=== PATIENT | female | born 1970 | race African-American/Black ===

== ENCOUNTER 2016-12-05 12:06 | Emergency (ER) | payer MEDICARE ==
[2016-10-06 10:52] VITALS: BMI 46.5
[~2016-12-05 12:06] MED LIST: ADIPEX-P37.5 MG PO; ASPIRIN81 MG PO; BUMEX 1 MG TAB1 MG PO; CALCIUM 600+D T1 TA1 PO; CARAFATE1 G PO; CEFAZOLIN2 GM/50 ML IV; CLARITIN 10 MG10 MG PO; COREG25 MG PO; CYCLOBENZAPRINE10 MG PO; DEPO-PROVER150 MG/ML IM; DILAUDID4 MG PO; DITROPAN X10 MG/BOTT PO; DURAGESIC1 PATCH .7 TRANSDERM; DYAZIDE 37.5/251 CAP; DYAZIDE 37.5/251 CAP PO; ELIQUIS2.5 MG PO; FERROUS SULFAT325 MG PO; GABAPENTIN100 MG PO; HYDRALAZINE HCL50 MG PO; HYDROCODON-ACE1 EAC9 PO; IBUPROFEN800 MG PO; IPRAT-ALBUT 0.5-3 ML UPD; K-DUR20 MEQ PO; KEFLEX500 MG PO; KLONOPIN1 MG PO; LASIX40 MG PO; LIDODERM 5 %1 PATCH TRANSDERM; LIORESAL 10 MG10 MG PO; LIPITOR10 MG PO; MULTIPLE VITAMI1 TA1 PO; NAPROSYN500 MG PO; OXYBUTYNIN CHLOR5 MG PO; OXYCONTIN10 MG PO; PEPCID20 MG PO; PERCOCET 10/3251 TA1 PO; PHENERGAN25 M1 PO; PREDNISONE20 MG PO; PRILOSEC20 MG PO; ROCEPHIN 2 GM/D52 G1 IV; SKELAXIN800 MG PO; SOMA350 MG PO; VISTARIL50 MG PO; VITAMIN B-1000 MCG/M SQ; VOLTAREN100 GM TOPICAL; ZOCOR20 MG PO; ZOFRAN4 MG PO; ZOLOFT50 MG PO
== END 2016-12-05 17:00 | disposition home or self-care (01) ==
LOC: D.ER 12:06
DX: M50.321 Other cervical disc degeneration at C4-C5 level (principal); M50.322 Other cervical disc degeneration at C5-C6 level; M54.12 Radiculopathy, cervical region; K21.9 Gastro-esophageal reflux disease without esophagitis; I10 Essential (primary) hypertension

== ENCOUNTER → 2017-01-05 12:26 | Outpatient (CLI) | payer MEDICARE ==
[2016-10-06 10:52] VITALS: BMI 46.5
== END | disposition home or self-care (01) ==
LOC: D.MRI 12:26
DX: M54.12 Radiculopathy, cervical region (principal)

== ENCOUNTER 2017-02-13 17:13 | Emergency (ER) | payer MEDICARE ==
[2016-10-06 10:52] VITALS: BMI 46.5
== END 2017-02-13 19:10 | disposition home or self-care (01) ==
LOC: D.ER 17:13
DX: M25.552 Pain in left hip (principal); M54.12 Radiculopathy, cervical region; M50.30 Other cervical disc degeneration, unspecified cervical region; K21.9 Gastro-esophageal reflux disease without esophagitis; I10 Essential (primary) hypertension; F17.200 Nicotine dependence, unspecified, uncomplicated

== ENCOUNTER 2017-02-27 22:17 | Emergency (ER) | payer MEDICARE ==
[2016-10-06 10:52] VITALS: BMI 46.5
== END 2017-02-28 01:01 | disposition home or self-care (01) ==
LOC: D.ER 22:17
DX: L03.116 Cellulitis of left lower limb (principal); S71.002A Unspecified open wound, left hip, initial encounter; X58.XXXA Exposure to other specified factors, initial encounter; Y93.89 Activity, other specified; Y92.89 Other specified places as the place of occurrence of the external cause; M54.12 Radiculopathy, cervical region; M50.321 Other cervical disc degeneration at C4-C5 level; M50.322 Other cervical disc degeneration at C5-C6 level; K21.9 Gastro-esophageal reflux disease without esophagitis; I10 Essential (primary) hypertension; F17.200 Nicotine dependence, unspecified, uncomplicated

== ENCOUNTER 2017-03-01 11:54 | Inpatient (IN) | payer MEDICARE ==
[~2017-03-01] VITALS: Ht 175.3 cm; Wt 130.6 kg
[2017-03-01 13:20] LABS: BASOPHILS 0.1 % (0-2); EOSINOPHILS 0.5 % (0-7); HEMATOCRIT 35.9 % (36.0-48.0); HEMOGLOBIN 11.6 g/dL (12-16); IMMATURE GRANULOCYTES 0.3 % (0-5); LYMPHOCYTES 18.8 % (15-50); MCH 30.9 pg (26.0-34.0); MCHC 32.3 g/dL (31.0-37.0); MCV 95.5 fL (80.0-100.0); MEAN PLATELET VOLUME 10.8 fL (7.4-10.4); NEUTROPHILS 77.3 % (40-80); PLATELET COUNT 275 10x3/uL (130-400); RBC 3.76 10x6/uL (4.00-5.40); RDW 13.9 % (11.5-14.5); WBC 10.2 10x3/uL (4.8-10.8)
[2017-03-01 13:30] LABS: ANION GAP 10.3 mmol/L (8-16); C-REACTIVE PROTEIN 3.3 mg/dL (0.0-0.9); CALCIUM 8.5 mg/dL (8.5-10.1); CARBON DIOXIDE 27.4 mmol/L (21.0-32.0); POTASSIUM - SERUM 3.7 mmol/L (3.5-5.1)
[2017-03-01 14:23] VITALS: BP 157/93; BMI 42.6
[2017-03-01 14:26] LABS: ERYTHROCYTE SEDIMENTATION RATE 45 mm/hr (0-20)
--- NOTE | 2017-03-01 15:47 | NUR ---
PT WAS ADMITTED TO THIS UNIT AROUND 2PM. SHE ARRIVED ON THE FLOOR IN A WHEELCHAIR. SHE CAN AMBULATE AD [facility] BUT HER LEFT HIP HURTS. PT. IS BEING ADMITTED UNDER DR. KRAUSE. SHE IS NPO. IV HAS BEEN PLACED IN HER RIGHT WRIST AREA AND REMAINS PATENT WITH ANTIBIOTIC THERAPY INFUSING AT THIS TIME. PT. IS ALERT AND ORIENTED X 3. VITALS UPON ADMISSION WERE; TEMP. 97.9, PULSE 71, RESP. 17, B/P 157/93, 02SAT. 99%. DILAUDID PHYSICAL THERAPIST CLINIC DIRECTOR WORKING AND PT. IS DELIVERING HER OWN MEDICATION SCHEDULED. DRESSING TO LEFT HIP AREA WAS CHANGED OUT DUE TO CLEAR TO PINK COLORED DRAINAGE NOTED ON THE ABDOMINAL PAD. WILL BE MONITORING PT AND ASSISTING PRN WITH ADL'S.
[2017-03-01 20:00] VITALS: BP 144/81
--- NOTE | 2017-03-01 20:00 | NUR ---
PT RECEIVED RESTING IN BED WITH EYES CLOSED. PT DENIES NEEDS AT THIS TIME. CALL LIGHT AND H2O IN PT REACH. BED IN LOW POSITION. SIDE RAILS UP X2.
[2017-03-02] VITALS: BP 134/75
--- NOTE | 2017-03-02 01:15 | NUR ---
RN NOTE: PT RESTING QUIETLY IN SEMI HOLLINGSWORTH'S POSITION. STATES IV IN RIGHT FA HURTING. NO REDNESS OR SWELLING NOTED. OFFERED TO RE-SITE IV AND PT DECLINED. WILL MONITOR CLOSELY. CALL LIGHT WITHIN REACH.
[2017-03-02 04:00] VITALS: BP 129/79
--- NOTE | 2017-03-02 04:55 | NUR ---
PT STATES SHE HAS BEEN AWARE OF ORERS FOR URINE LABS. DISCUSSED OBTAINING URINE SAMPLE VIA IN & OUT CATHETER D/T PT BEING INCONTINENT THROUGH OUT THE NIGHT. PT REFUSES IN & OUT CATHETER. STATES, "I CAN USE THE BATHROOM. I'D RATHER DO IT THAT WAY." PT STATES SHE WILL NOTIFY NURSE NEXT TIME PT NEEDS TO USE THE BATHROOM.
[2017-03-02 05:52] LABS: BASOPHILS 0.1 % (0-2); EOSINOPHILS 0.9 % (0-7); HEMATOCRIT 34.5 % (36.0-48.0); IMMATURE GRANULOCYTES 0.2 % (0-5); LYMPHOCYTES 19.9 % (15-50); MCH 30.4 pg (26.0-34.0); MCHC 31.9 g/dL (31.0-37.0); MCV 95.3 fL (80.0-100.0); MEAN PLATELET VOLUME 10.4 fL (7.4-10.4); MONOCYTES 4.8 % (2-11); NEUTROPHILS 74.1 % (40-80); PLATELET COUNT 266 10x3/uL (130-400); RBC 3.62 10x6/uL (4.00-5.40); RDW 13.7 % (11.5-14.5); WBC 9.5 10x3/uL (4.8-10.8)
[2017-03-02 06:37] LABS: CALCIUM 7.7 mg/dL (8.5-10.1); CARBON DIOXIDE 28.4 mmol/L (21.0-32.0); POTASSIUM - SERUM 3.4 mmol/L (3.5-5.1)
--- NOTE | 2017-03-02 08:45 | NUR ---
Verbalized name and , incontinent of urine. Dressing left hip intact, noted moderate amount of serosanguious drainage, dressing changed, covered with abd pad and secured with tape. States pain is cotrolled with SWATCH CHECKER.
[2017-03-02 10:09] VITALS: BP 142/85
[2017-03-02 11:47] VITALS: BP 140/90
[2017-03-02 13:39] VITALS: Ht 175.3 cm; Wt 130.6 kg
--- NOTE | 2017-03-02 14:08 | NUR ---
IV SITED TO LEFT FOREARM AFTER ONE ATTEMPT WITH 22G. WARM MOIST HEAT APPLIED TO PREVIOUS IV SITE.
[2017-03-02 16:38] VITALS: BP 155/106
[2017-03-02 19:00] VITALS: BP 132/85
--- NOTE | 2017-03-02 19:30 | NUR ---
PT RECEIVED SITTING UP IN BED WATCHING TELEVISION. ASSESSMENT COMPLETED PER FLOWSHEET. PT DENIES NEEDS AT THIS TIME. CALL LIGHT AND H2O IN PT REACH. BED IN LOW POSITION. SIDE RAILS UP X2.
--- NOTE | 2017-03-02 22:58 | NUR ---
16FR QUINONES CATHETER INSERTED USING STERILE TECHNIQUE PER PHYSICIAN ORDERS. CLEAR STRAW COLORED RETURN NOTED. PT TOLERATED WELL. STAT LOCK PLACED ON RIGHT LEG, CATHETER SECURED ON STAT LOCK. URINE SPECIMEN FOR LABS ORDERED COLLECTED AT THIS TIME AND SENT TO LAB.
[2017-03-03] VITALS: BP 129/83
--- NOTE | 2017-03-03 01:54 | NUR ---
PT'S OPTICAL EFFECTS LAYOUT PERSON PUMP NOTED TO BE EMPTY. OPTICAL EFFECTS LAYOUT PERSON PUMP SYRINGE REPLACED PER ORDERS, EMPTY SYRINGE WASTED IN SHARPS.
[2017-03-03 02:59] LABS: APPEARANCE CLOUDY (CLEAR); BILIRUBIN NEGATIVE (NEGATIVE); COLOR YELLOW (YELLOW); GLUCOSE NEGATIVE (NEGATIVE); KETONE NEGATIVE (NEGATIVE); LEUKOCYTE ESTERASE NEGATIVE (NEGATIVE); NITRITE NEGATIVE (NEGATIVE); PROTEIN NEGATIVE (NEGATIVE); SPECIFIC GRAVITY 1.015 (1.005-1.020); UROBILINOGEN NORMAL (NORMAL)
--- NOTE | 2017-03-03 03:46 | NUR ---
LYING IN BED WITH EYES CLOSED. RESP EVEN AND UNLABORED. LORI LIGHT IN REACH.
[2017-03-03 04:00] VITALS: BP 146/85
[2017-03-03 06:57] LABS: BASOPHILS 0.1 % (0-2); HEMOGLOBIN 10.8 g/dL (12-16); IMMATURE GRANULOCYTES 0.1 % (0-5); LYMPHOCYTES 22.9 % (15-50); MCH 30.3 pg (26.0-34.0); MCHC 31.8 g/dL (31.0-37.0); MCV 95.2 fL (80.0-100.0); MEAN PLATELET VOLUME 10.8 fL (7.4-10.4); MONOCYTES 4.4 % (2-11); NEUTROPHILS 71.5 % (40-80); PLATELET COUNT 265 10x3/uL (130-400); RBC 3.57 10x6/uL (4.00-5.40); RDW 14.1 % (11.5-14.5)
[2017-03-03 07:12] LABS: ANION GAP 7.9 mmol/L (8-16); CALCIUM 7.7 mg/dL (8.5-10.1); CARBON DIOXIDE 28.7 mmol/L (21.0-32.0); POTASSIUM - SERUM 3.6 mmol/L (3.5-5.1)
--- NOTE | 2017-03-03 07:35 | NUR ---
RESTING WATCHING TV, DENIES NEEDS, NO DISTRESS NOTED, ASSESSMENT COMPLETE, DRESSING CHANGED, CALL LIGHT IN REACH, WILL CONTINUE TO MONITOR
[2017-03-03 09:00] VITALS: BP 136/80
--- NOTE | 2017-03-03 16:00 | NUR ---
LYING IN BED,WITHOUT DISTRESS.CALL LIGHT IN REACH
[2017-03-03 16:17] VITALS: BP 144/76
--- NOTE | 2017-03-03 17:59 | NUR ---
LYING IN BED RESTING, WANTS "BEDTIME" MEDS
[2017-03-03 20:00] VITALS: BP 152/91
--- NOTE | 2017-03-03 22:25 | NUR ---
Patient resting in bed, alert and oriented, bed in lowest position and locked, call light and water in reach, dressing changed scant amount of drainage noted to dressing, CPOC.
[2017-03-04] VITALS: BP 145/89
[2017-03-04 04:00] VITALS: BP 147/92
[2017-03-04 06:20] LABS: BASOPHILS 0.2 % (0-2); EOSINOPHILS 0.7 % (0-7); IMMATURE GRANULOCYTES 0.1 % (0-5); MCH 30.1 pg (26.0-34.0); MCHC 31.4 g/dL (31.0-37.0); MCV 95.9 fL (80.0-100.0); MONOCYTES 5.2 % (2-11); NEUTROPHILS 72.8 % (40-80); PLATELET COUNT 250 10x3/uL (130-400); RBC 3.65 10x6/uL (4.00-5.40)
[2017-03-04 06:47] LABS: CALCIUM 8.3 mg/dL (8.5-10.1); CARBON DIOXIDE 25.7 mmol/L (21.0-32.0); POTASSIUM - SERUM 3.7 mmol/L (3.5-5.1)
--- NOTE | 2017-03-04 08:35 | NUR ---
SCHEDULED MEDICATIONS ADMINISTERED AT THIS TIME. ASSESSMENT PERFORMED PER FLOWSHEET. QUINONES PATENT AND DRAINING TO GRAVITY. DRESSING TO LEFT HIP REMAINS C/D/I. ADMIN PROG COORD IN USE FOR PAIN. LEFT FOREARM IV PATENT WITH NO S/S OF INFILATRATION. CALL LIGHT IN REACH, WILL CONTINUE WITH PLAN OF CARE.
[2017-03-04 09:17] VITALS: BP 167/83
--- NOTE | 2017-03-04 11:28 | NUR ---
SCHEDULED CARAFATE ADMINISTERED AT THIS TIME. PT DENIES NEEDS. CALL LIGHT IN REACH, WILL CONTINUE WITH PLAN OF CARE.
[2017-03-04 11:53] VITALS: BP 146/80
--- NOTE | 2017-03-04 15:25 | NUR ---
SCHEDULED MEDICATIONS ADMINISTERED AT THIS TIME. IV TO LEFT FORARM RE-DRESSED PER PT'S REQUEST. SITE SIGNED AND DATED. DENIES FURTHER NEEDS, CALL LIGHT IN REACH, WILL CONTINUE WITH PLAN OF CARE.
[2017-03-04 15:33] VITALS: BP 138/74
--- NOTE | 2017-03-04 16:50 | NUR ---
SCHEDULED MEDICATIONS ADMINISTERED AT THIS TIME. DENIES NEEDS, CALL LIGHT IN REACH. WILL CONTINUE WITH PLAN OF CARE.
[2017-03-04 20:00] VITALS: BP 107/84
--- NOTE | 2017-03-04 20:00 | NUR ---
ASSESSMENT PER JAN. DRESSING TO LEFT HIP C/D/I. IV PATENT LEFT FOREARM OF 1/2NS AT 75CC'S/HR SITE CLEAR. INTERNATIONAL RELATIONS PROFESSOR OF DILAUDID IN USE WITH SETTINGS AT 0.2MG Q10MIN W/4MG Q4H L/O. QUINONES TO BS DRAINAGE WITH PALE YELLOW URINE. SR UP X2 CALL LIGHT WITHIN REACH.
--- NOTE | 2017-03-04 22:00 | NUR ---
MEDS GIVEN PER JAN. RESTING QUIETLY DENIES NEEDS. WANTS SOMETHING TO EAT SANDWICH TRAY AND SODA GIVEN PO FOR SNACK.
[2017-03-05] VITALS: BP 121/81
--- NOTE | 2017-03-05 | NUR ---
NPO FOR SURGERY IN AM.
--- NOTE | 2017-03-05 02:24 | NUR ---
RESTING QUIETLY WATCHING TV.
[2017-03-05 04:00] VITALS: BP 158/81
[2017-03-05 05:41] LABS: BASOPHILS 0.1 % (0-2); HEMATOCRIT 36.6 % (36.0-48.0); HEMOGLOBIN 11.5 g/dL (12-16); IMMATURE GRANULOCYTES 0.4 % (0-5); LYMPHOCYTES 21.3 % (15-50); MCH 30.5 pg (26.0-34.0); MCHC 31.4 g/dL (31.0-37.0); MCV 97.1 fL (80.0-100.0); MEAN PLATELET VOLUME 10.7 fL (7.4-10.4); MONOCYTES 5.5 % (2-11); NEUTROPHILS 71.7 % (40-80); PLATELET COUNT 243 10x3/uL (130-400); RBC 3.77 10x6/uL (4.00-5.40); WBC 8.2 10x3/uL (4.8-10.8)
[2017-03-05 06:06] LABS: ANION GAP 9.8 mmol/L (8-16); CALCIUM 8.2 mg/dL (8.5-10.1); CARBON DIOXIDE 29.3 mmol/L (21.0-32.0); POTASSIUM - SERUM 4.1 mmol/L (3.5-5.1)
[2017-03-05 06:09] LABS: CREATININE - SERUM 1.3 mg/dL (0.6-1.3)
--- NOTE | 2017-03-05 07:32 | NUR ---
PT AOX4 RESP EVEN AND NONLABORED IV TO LEFT FOREARM PATENT AND INTACT SRX2 BED AT LOWEST SETTING CALL LIGHT WITHIN REACH WILL CONTINUE TO MONITOR PT DENIES NEEDS AT THIS TIME
[2017-03-05 08:22] VITALS: BP 158/86
[2017-03-05 11:50] VITALS: BP 127/84
--- NOTE | 2017-03-05 15:20 | NUR ---
PATIENT TRANSFERRED TO FLOOR ON [facility]IM[facility]ER 10L. ANESTHESIA NOTIFIED.
[2017-03-05 15:37] VITALS: BP 129/71
--- NOTE | 2017-03-05 16:02 | NUR ---
Patient Name: JACQUELINE BRUNNER Admission Status: Elective Accout number: [id number] Admission Date: 03-01-2017 : 1970 Admission Diagnosis:INFECTION FOLLOWING A PROCEDURE, INITIAL ENCOUNTER Attending: CECILIA Current LOS: 4 Anticipated DC Date: 03-09-2017 Planned Disposition: Home with Home Health Primary Insurance: [facility] Discharge Planning Comments: CM MET WITH PATIENT REGARDING D/C NEEDS AND PLANS. PATIENT STATED SHE LIVES WITH HER FIANCE AND THEY HAVE 1 STEP W/O RAIL TO ENTER HOME AND NO STAIRS INSIDE. PATIENT IS PARTIAL DEPENDENT WITH HER CARE AND HAS A WHEELCHAIR, WALKER, SHOWER CHAIR, AND NEBULIZER AT HOME. PATIENTS PCP IS DR. ESPITIA AND USES [facility]. PATIENT IS CURRENT WITH [facility]. CM WILL CONTINUE TO FOLLOW PATIENT WITH D/C NEEDS AND PLANS. PCP DR. ESPITIA [facility]- [phone] MARCK MYESHA ([facility]) [phone] Machine Ii Cutter: Shira Ny Is the patient Alert and Oriented? Yes 0 * How many steps to enter\exit or inside your home? 1 0 * PCP DR. ESPITIA 0 * Pharmacy [place] 0 * Preadmission Environment Home with Family 0 * ADLs Independent 0 * Equipment Nebulizer Shower Chair Walker Wheelchair 0 * List name and contact numbers for known caregivers / representatives who currently or will assist patient after discharge: MARCK BRUNNER ([facility]) [phone] * Community resources currently utilized Home Health 0 * Please name any agencies selected above. [facility] 0 * Additional services required to return to the preadmission environment? Yes 0 * Can the patient safely return to the preadmission environment? Yes 0 * Has this patient been hospitalized within the prior 30 days at any hospital? No 0 Grand Total: 0
--- NOTE | 2017-03-05 20:31 | NUR ---
PATIENT RESTING IN BED. ALERT AND ORIENTED. NO SIGNS OF DISTRESS NOTED. VSS. SCHEDULED MEDS GIVEN. SHIFT ASSESSMENT COMPLETED. DENIES ANY NEEDS AT THIS TIME. BED LOW. CALL LIGHT IN REACH
--- NOTE | 2017-03-06 01:52 | NUR ---
PATIENT RESTING IN SEMI-FOWLERS POSITION WITH EYES CLOSED. NO VISIBLE SIGNS OF DISTRESS. BED IN LOWEST POSITION AND CALL LIGHT WITHIN REACH.
[2017-03-06 04:00] VITALS: BP 97/45
[2017-03-06 06:21] LABS: BASOPHILS 0.1 % (0-2); HEMOGLOBIN 11.2 g/dL (12-16); IMMATURE GRANULOCYTES 0.4 % (0-5); LYMPHOCYTES 15.2 % (15-50); MCH 30.4 pg (26.0-34.0); MCHC 30.3 g/dL (31.0-37.0); MONOCYTES 5.5 % (2-11); NEUTROPHILS 77.8 % (40-80); PLATELET COUNT 291 10x3/uL (130-400); RBC 3.68 10x6/uL (4.00-5.40); RDW 14.4 % (11.5-14.5)
[2017-03-06 06:25] LABS: MCV 100.5 fL (80.0-100.0); WBC 11.4 10x3/uL (4.8-10.8)
[2017-03-06 06:38] LABS: ANION GAP 10.2 mmol/L (8-16); CARBON DIOXIDE 29.1 mmol/L (21.0-32.0); CREATININE - SERUM 1.3 mg/dL (0.6-1.3); POTASSIUM - SERUM 4.3 mmol/L (3.5-5.1)
--- NOTE | 2017-03-06 07:43 | NUR ---
PT AOX4 RESP EVEN AND NONLABORED PT DENIES NEEDS AT THIS TIME SRX2 CALL LIGHT WITHIN REACH WILL CONTINUE TO MONITOR BED AT LOWEST SETTING IV TO LEFT FOREARM PATENT AND INTACT. WOUND VAC TO LEFT HIP DRESSING INTACT
[2017-03-06 08:17] VITALS: BP 123/68
[2017-03-06 12:08] VITALS: BP 106/53
[2017-03-06 16:28] VITALS: BP 122/55; BP 122/57
[2017-03-06 19:00] VITALS: BP 128/56
--- NOTE | 2017-03-07 01:48 | NUR ---
194) REC'D.WALKING ROUNDS IN BED SEDATED TALKING AT RANDOM EYES CLOSED RESP. DEEP AND EVEN.LONG LEG ACEWRAP DRSG. WITH KNEE IMMOB. INTACT.DRAIN INTACT WILL CONTINUE TO MONITOR FOR ANY CHGES. AND FOLLOW CURRENT PLAN OF CARE
[2017-03-07 04:00] VITALS: BP 128/73
[2017-03-07 08:25] VITALS: BP 128/79
--- NOTE | 2017-03-07 08:30 | NUR ---
Verbalized name and , dressing clean dry and intact to left hip, with Provena wound vac dressing secured and suctioning as ordered, serosanguious drainage noted in tubing. States pain is managed. Osborn catheter patent. No distress assessed. Call light within reach, box alarm attached to patient.
[2017-03-07 10:59] VITALS: BP 122/74
[2017-03-07 16:01] VITALS: BP 118/68
--- NOTE | 2017-03-07 19:00 | NUR ---
BEDSIDE REPORT RECEIVED AND CARE OF PT ASSUMED. PT LYING IN SEMI HOLLINGSWORTH'S POSITION WITH EYES CLOSED. IV IN RIGHT AND PATENT WHTI 1/2 NS INFUSING AT 30 ML / HR. SUPERVISOR BEEHIVE KILN / DILAUDID IN USE FOR PAIN CONTROL. WOUND VAC IN PLACE ON LEFT HIP WELL COMPRESSED WITH NO LEAKAGE ALARMS. QUINONES CATHETER DRAINING TO GRAVITY WITY YELLOW URINE IN COLLECTION BAG. WILL MONITOR CLOSLEY FOR NEEDS.
[2017-03-07 20:49] VITALS: BP 118/72
--- NOTE | 2017-03-07 21:00 | NUR ---
C/O IV IN RIGHT HAND HURTING. NO SWELLING OR REDNESS. REMOVED WITH CATHETER TIP INTACT. RE-SITED TO RIGHT AC USING 20 GUAGE CATHETER IN 2 STICKS. RE-STARTED IV FLUIDS.
--- NOTE | 2017-03-07 21:05 | NUR ---
HS MEDICATIONS GIVEN. WILL CONTINUE TO MONITOR FOR NEEDS.
--- NOTE | 2017-03-07 23:23 | NUR ---
PT RESTING QUIELTY IN SEMI HOLLINGSWORTH'S POSITION. IV PATENT. WOUND VAC WITHOUT LEAKAGE ALARMS. CALL LIGHT WITHIN REACH.
[2017-03-08 00:43] VITALS: BP 107/57
[2017-03-08 04:00] VITALS: BP 139/70
[2017-03-08 05:29] LABS: BASOPHILS 0.3 % (0-2); EOSINOPHILS 0.9 % (0-7); HEMATOCRIT 32.7 % (36.0-48.0); HEMOGLOBIN 10.5 g/dL (12-16); IMMATURE GRANULOCYTES 0.1 % (0-5); LYMPHOCYTES 21.9 % (15-50); MCH 31.2 pg (26.0-34.0); MCHC 32.1 g/dL (31.0-37.0); MEAN PLATELET VOLUME 11.3 fL (7.4-10.4); MONOCYTES 6.1 % (2-11); NEUTROPHILS 70.7 % (40-80); PLATELET COUNT 220 10x3/uL (130-400); RBC 3.37 10x6/uL (4.00-5.40); WBC 7.9 10x3/uL (4.8-10.8)
[2017-03-08 05:51] LABS: ANION GAP 7.4 mmol/L (8-16); CALCIUM 8.5 mg/dL (8.5-10.1); CARBON DIOXIDE 30.5 mmol/L (21.0-32.0); CREATININE - SERUM 1.2 mg/dL (0.6-1.3); POTASSIUM - SERUM 3.9 mmol/L (3.5-5.1)
--- NOTE | 2017-03-08 07:30 | NUR ---
PT ASSESSMENT COMPLETE AWAKE AND ALERT ORINETED X 3 LUNGS CLAER BIALTERALLY HAS WOUND VAC NOTED TO LEFT HIP NO DRAINAGE NOTED AT THIS TIME PAIN IS CONTROLLED WITH RETAIL SELLING FLOOR LEADER DILAUDID. CALL LIGHT IN REACH SIDE RAILS UP X 2
[2017-03-08 08:12] VITALS: BP 138/84
[2017-03-08 11:17] VITALS: BP 140/80
--- NOTE | 2017-03-08 13:33 | NUR ---
CM REASSESSMENT NOTE: PATIENT HAD TOLD DR. BRITO THAT SHE WOULD GO TO A SNF. CM WENT TO PATIENTS ROOM FOR HER TO DECIDE WHICH FACILITY AND SHE STATED I AM GOING HOME-NOT A FACILITY. SHE STATED DR. BRITO DOESN'T KNOW ME THAT WELL YET I WAS JUST TALKING. PATIENT SIGNED THE [facility] FORM WITH [facility]. REFERRAL BEING SENT. WOUND VAC INFO SENT TO [facility].
--- NOTE | 2017-03-08 14:12 | NUR ---
Nutrition Follow Up: Pt reported that her meals have been fine. She agreed to drink Sae BID and requested to mix it with 8oz of grape juice. Pt is eating 53% meal avg on a regular diet. I>O. No BM since admit. Noted wound vac to hip. Labs reviewed. Meds noted including Lasix, 1/2 NS @ 30 ml/hr. Rec continue current diet. Will send Sae BID to promote wound healing. RD will continue to monitor pt progress.
--- NOTE | 2017-03-08 14:38 | OP ---
PATIENT NAME: JACQUELINE SMITH MEDICAL RECORD: [id number] :70 LOCATION:D.MS [id number] ADMISSION DATE:03/01/17 SURGEON: ELSY KRAUSE MD DATE OF OPERATION: 03/05/2017 PREOPERATIVE DIAGNOSIS: Recurring hip wound to the left hip. POSTOPERATIVE DIAGNOSIS: Recurring hip wound to the left hip plus retained foreign body in the wound. PROCEDURE: 1. Excisional debridement of the wound to include skin, subcutaneous tissue, portions of fat, fascia, muscle, greater than 20 cm. 2. Removal of foreign body -- prior placed wound VAC sponge. SURGEON: lEsy Krause MD ANESTHESIA: General. INTRAOPERATIVE COMPLICATIONS: None. SUMMARY OF PATHOLOGIC FINDINGS: She had a very small punctate hole; however, as this was healed that would became obvious that she had a residual portion of the black sponge of a wound VAC. This was taken out and the entire cavity was scraped back to bleeding elements and a second wound VAC was placed. OPERATIVE SUMMARY IN DETAIL: After obtaining the appropriate preoperative orthopedic surgery consent, as well as anesthetic consultation, evaluation and clearance, the patient was brought to the operating room and placed on the operating table in supine position. After general laryngeal mask was administered, the patient was placed in a right lateral decubitus position. All pressure points were well padded to include down leg peroneal pad as well as axillary roll. She was held firmly to the operating table using the vacuum pack suction system. The left hip was prepped and draped in a routine sterile manner. Cultures were taken immediately and the small punctiform incision was elongated to immediately observed the black sponge of a wound VAC sponge. This was removed in its entirety and curettage and excisional debridement were carried out both with scalpel, as well as rongeur until the entire base was bleeding. At one point, it did appear to go deep, but it did not appear to involve the bone at this point, copious bulb syringe was followed by replacement with silver wound VAC, again, 2 layers deep, wound VAC was set at 125 medium intensity, continuous suction. The patient was then awakened, taken to recovery in stable condition. All final needle and sponge counts were correct. TRANSINT:[id number] Voice Confirmation ID: [id number] DOCUMENT ID: [id number] ELSY KRAUSE MD at 1438 CC: [id number] DICTATION DATE: 03/05/17 1442 MOTEL FRONT DESK CLERK: 03/06/17 0110 ADM IN [facility] [address] [place] [id number]
[2017-03-08 15:25] VITALS: BP 114/72
--- NOTE | 2017-03-08 18:50 | NUR ---
NO ACUTE DISTRESS NOTED VOICES ALL NEEDS CALL LIGHT INREACH SIDE RAILS UP X 2
--- NOTE | 2017-03-08 19:30 | NUR ---
PATIENT RESTING IN BED WITH IV BEEPING. SL PATIENT'S IV UNTIL ANTIBIOTICS ARE DUE. PATIENT DENIES OTHER NEEDS AT THIS TIME. BED IN LOWEST POSITION, CALL LIGHT WITHIN REACH, AND BED ALARM ON. ENCOURAGED THE PATIENT TO CALL IF SHE HAS FURTHER NEEDS.
[2017-03-08 20:00] VITALS: BP 133/65
[2017-03-09] VITALS: BP 147/90
[2017-03-09 04:00] VITALS: BP 156/87
--- NOTE | 2017-03-09 10:13 | NUR ---
WOUND CARE/WOUND VAC DRESSING CHANGE PT HAD SURGICAL DEBRIDEMENT ON 03/05/17 TO NONHEALING WOUND ON LEFT HIP. TODAY I REMOVED 2 PIECES OF SILVER SPONGE FROM THE WOUND AND NOTED NO ODOR. THE WOUND BED AND RED/BEEFY AND BLEEDS EASILY. PLACED 2 PIECES OF SILVER SPONGE IN WOUND AND COVERED WITH DRAPE. CUT AN OPENING AND PLACED ANOTHER PIECE OF SILVER FOAM ON THE OUTSIDE OF WOUND FOR PROTECTION FROM TRAC PAD. TOTAL: 2 SILVER IN WOUND 1SILVER ON OUTSIDE OF WOUND. -125MMHG WAS ACHIEVED WITH A MODERATE CONTINUOUS SUCTION. MEASUREMENTS: 6CM X 2CM X 5CM WOUND CARE WILL CONTINUE TO MONITOR.
--- NOTE | 2017-03-09 10:50 | NUR ---
pt seen for rigging slinger note. states pain med given eariler and is slowly helping. wound vac noted to left hip with drainage in canister. area around wound vac clean dry and intact. call light in reach
[2017-03-09 11:35] VITALS: BP 122/74
[2017-03-09] MEDS ORDERED: KEFLEX500 MG PO (13:28)
--- NOTE | 2017-03-09 15:30 | NUR ---
PT DISCHARGED AT THIS TIME TO HOME EXPRESED UNDERSTANDING OF DISCHARGE INSTRUCTIONS AND APPOINTMENTS. PIV DISCONTINUED. QUINONES REMOVED TRANSFERED TO PRIVATE CAR VIA WHEELCHAIR.
--- NOTE | 2017-03-09 15:30 | NUR ---
WOUND VAC PORTABLE APPLIED AND SENT WITH PT.
--- NOTE | 2017-03-09 16:54 | NUR ---
CM REASSESSMENT NOTE: PATIENT DISCHARGED TODAY WITH A WOUND VAC (CHANGED TODAY) AND [facility] WAS NOTIFIED. FAMILY DROVE PATIENT HOME. PATIENT HAD NO OTHER NEEDS.
== END 2017-03-09 17:05 | disposition home health service (06) | DRG 857 ==
LOC: D.MS 11:54
PROVIDERS: Student in an Organized Health Care Education/Training Program; ADMIT Orthopaedic Surgery
PROC: 0KCP0ZZ Extirpation of Matter from Left Hip Muscle, Open Approach (ICD-10-PCS; 2017-03-05)
PROC: 0KBP0ZZ Excision of Left Hip Muscle, Open Approach (ICD-10-PCS; principal; 2017-03-05 12:30)
DX: T81.4XXA Infection following a procedure, initial encounter (principal); L02.416 Cutaneous abscess of left lower limb; B19.10 Unspecified viral hepatitis B without hepatic coma; Z68.41 Body mass index [BMI] 40.0-44.9, adult; Z96.642 Presence of left artificial hip joint; K21.9 Gastro-esophageal reflux disease without esophagitis; E66.01 Morbid (severe) obesity due to excess calories; F17.200 Nicotine dependence, unspecified, uncomplicated; Z91.19 Patient's noncompliance with other medical treatment and regimen; E11.40 Type 2 diabetes mellitus with diabetic neuropathy, unspecified; D50.9 Iron deficiency anemia, unspecified; I25.10 Atherosclerotic heart disease of native coronary artery without angina pectoris

== ENCOUNTER 2017-05-07 09:53 | Emergency (ER) | payer MEDICARE ==
[2017-03-02 13:39] VITALS: BMI 42.5
== END 2017-05-07 12:35 | disposition home or self-care (01) ==
LOC: D.ER
DX: S39.012A Strain of muscle, fascia and tendon of lower back, initial encounter (principal); W19.XXXA Unspecified fall, initial encounter; Y93.89 Activity, other specified; Y92.89 Other specified places as the place of occurrence of the external cause; F17.200 Nicotine dependence, unspecified, uncomplicated

== ENCOUNTER → 2017-06-25 16:26 | Outpatient (CLI) | payer MEDICARE ==
[2017-03-02 13:39] VITALS: BMI 42.5
== END | disposition home or self-care (01) ==
LOC: D.MAMMO 09:30
DX: N63 Unspecified lump in breast (principal)

== ENCOUNTER 2017-07-16 09:15 | Outpatient (CLI) | payer MEDICARE ==
[2017-07-12 14:57] LABS: BASOPHILS 0.1 % (0-2); EOSINOPHILS 0.8 % (0-7); HEMATOCRIT 34.9 % (36.0-48.0); HEMOGLOBIN 11.3 g/dL (12-16); IMMATURE GRANULOCYTES 0.1 % (0-5); LYMPHOCYTES 19.7 % (15-50); MCH 31.1 pg (26.0-34.0); MCHC 32.4 g/dL (31.0-37.0); MCV 96.1 fL (80.0-100.0); MEAN PLATELET VOLUME 12.2 fL (7.4-10.4); MONOCYTES 5.2 % (2-11); NEUTROPHILS 74.1 % (40-80); PLATELET COUNT 184 10x3/uL (130-400); RBC 3.63 10x6/uL (4.00-5.40); RDW 14.2 % (11.5-14.5); WBC 8.5 10x3/uL (4.8-10.8)
[2017-07-12 15:08] LABS: APTT 29.7 SECONDS (22.8-39.4); INR 1.12 (0.85-1.17); PROTIME 14.3 SECONDS (11.6-15.0)
[2017-07-12 15:09] LABS: ANION GAP 14.4 mmol/L (8-16); CALCIUM 7.6 mg/dL (8.5-10.1); CARBON DIOXIDE 25.3 mmol/L (21.0-32.0); CREATININE - SERUM 0.9 mg/dL (0.6-1.3); POTASSIUM - SERUM 3.7 mmol/L (3.5-5.1)
[2017-07-12 16:55] LABS: ERYTHROCYTE SEDIMENTATION RATE 28 mm/hr (0-20)
[~2017-07-16] VITALS: Ht 175.3 cm; Wt 131.5 kg
[~2017-07-16 09:15] MED LIST changes: +NEURONTIN600 MG PO
[2017-07-16 11:48] VITALS: BP 152/89; BMI 42.9
--- NOTE | 2017-07-16 17:04 | NUR ---
PT'S SURGERY CANCELLED FOR TODAY. OFFICE TO RESCHEDULE. PT AWARE TO CALL IF DOES NOT HEAR FROM OFFICE BY TOMORROW FOR NEW SURGERY DATE. DISCHARGED VIA WHEELCHAIR WITH BROTHER, BEBETO.
[2017-07-20 14:44] VITALS: Ht 175.3 cm; Wt 131.5 kg
== END 2017-07-16 17:05 | disposition home or self-care (01) ==
LOC: D.SDCHOLD 09:15 → D.OPS 09:15 → D.SDCHOLD 10:30 → EDSTATUS 14:15 → D.SDCHOLD 14:15 → D.OPS 17:05 → D.SDCHOLD 17:05
PROVIDERS: Orthopaedic Surgery
DX: T84.52XA Infection and inflammatory reaction due to internal left hip prosthesis, initial encounter (principal); Z68.41 Body mass index [BMI] 40.0-44.9, adult; B19.10 Unspecified viral hepatitis B without hepatic coma; E66.01 Morbid (severe) obesity due to excess calories; E11.9 Type 2 diabetes mellitus without complications; I10 Essential (primary) hypertension; Z96.89 Presence of other specified functional implants; Z01.810 Encounter for preprocedural cardiovascular examination; Z01.811 Encounter for preprocedural respiratory examination; Z01.812 Encounter for preprocedural laboratory examination; Z53.9 Procedure and treatment not carried out, unspecified reason

== ENCOUNTER 2017-07-19 14:00 | Inpatient (IN) | payer MEDICARE ==
[~2017-07-19] VITALS: Ht 175.3 cm; Wt 129.3 kg
[2017-07-20 07:37] LABS: HCG URINE NEGATIVE (NEGATIVE)
[2017-07-20 07:46] VITALS: BP 147/90; BMI 42.2
--- NOTE | 2017-07-20 10:14 | NUR ---
PILLOW BETWEEN ARMS
--- NOTE | 2017-07-20 10:31 | NUR ---
LEFT HIP AND LEG WASHED WITH HIBICLENS AND ALCOHOL PRIOR TO PREP
[2017-07-20 14:29] VITALS: BP 134/69
[2017-07-20 14:44] VITALS: BP 134/69; BMI 42.2
--- NOTE | 2017-07-20 14:55 | OP ---
PATIENT NAME: JACQUELINE ALMODOVAR MEDICAL RECORD: [id number] :70 LOCATION:D.MS [id number] ADMISSION DATE:07/20/17 SURGEON: ELSY KRAUSE MD DATE OF OPERATION: 07/20/2017 PREOPERATIVE DIAGNOSES: 1. Infected right total hip arthroplasty. 2. Morbid obesity. 3. Patient noncompliance. 4. Substantially altered surgical anatomy. POSTOPERATIVE DIAGNOSES: 1. Infected right total hip arthroplasty. 2. Morbid obesity. 3. Patient noncompliance. 4. Substantially altered surgical anatomy. PROCEDURES: 1. Removal of right total hip arthroplasty with excisional debridement. 2. Replacement of antibiotic cement spacer. ANESTHESIA: General. INTRAOPERATIVE COMPLICATIONS: Essentially none. SUMMARY OF PATHOLOGIC FINDINGS: Besides having purulence hidden around the prosthesis itself, the patient had a large area of abscess in the anterolateral distal part of the thigh. Cultures were sent separately, one labeled superficial and one labeled deep. The patient's stem required an extended femoral osteotomy for removal. The patient's acetabular cup was well fixed; however, minimal amount of bone was lost. It is of note that the entire posterior wall was gone as it was augmented at the last procedure. OPERATIVE SUMMARY IN DETAIL: After obtaining the appropriate preoperative orthopedic surgery consent as well as anesthetic consultation, evaluation and clearance, the patient was brought to the operating room and placed on the operating table in supine position. After general laryngeal mask was administered, the patient was placed in the left lateral decubitus position. All pressure points were well padded to include down leg peroneal pad as well as axillary roll. The patient was held firmly to the operating table using the vacuum pack suction system. The entire right lower extremity and hip were then prepped and draped in a routine sterile fashion. Previous utilized incision was taken down through scar tissue to the level of the tensor fascia madelaine. At this point, the anterior abscess was encountered. Cultures were taken at this point. Dissection was further carried down through substantial amounts of scar tissue with substantial amount of altered surgical anatomy. Essentially, the patient had scar tissue all the way down to the greater trochanter. Dissection was then carried across the greater trochanter down to the femoral neck of the prosthesis where a second large purulence was encountered. This was cultured and labeled deep cultures. After substantial amount of scar tissue removal, the hip was reduced. The femoral head did not come off the Beltrán taper, therefore, the entire proximal body of the taoism modular system was taken off and then multiple attempts were made at removal of the distal stem, this was unsuccessful. Broad osteotome was then utilized to perform a proximal femoral corticotomy. This resulted in extraction of the femoral stem. At this point, OPERATIVE REPORT [id number] ALMODOVARJACQUELINE cables were placed to maintain integrity of the femur. Wound was copiously irrigated at this point. Next, attention was turned to the acetabulum. Polyethylene was removed. All screws were removed and the augment was removed after the cement was removed, augment was removed and then, the cup was removed. Serial and sequential curved osteotomes were used circumferentially about the hip until finally the well-fixed acetabular cup broke free resulting in a minimal amount of bone loss. Serial and sequential pulsatile lavage was then followed by placement of antibiotic cement spacer. This was relocated into the acetabulum. A large flat Dann-Jimenes drain was put into place and then closure from deep to superficial was done with #5 Ethibond followed by #1 Vicryl, 2-0 Vicryl and skin lauren. The ENRIKE drain was sewn in with a 2-0 nylon. Sterile dressings were applied. The suction was hooked up to the Dann-Jimenes drain without leak. The patient was then put into an abduction pillow and lastly, a Osborn catheter was placed. She was then awakened, extubated, and taken to recovery room in stable condition. ESTIMATED BLOOD LOSS: 800 cc. One unit given intraoperatively with a second to follow in recovery. TRANSINT:[id number] Voice Confirmation ID: [id number] DOCUMENT ID: [id number] JIMI EL, ELSY WELLS at 1455 CC: [id number] DICTATION DATE: 07/20/17 1241 AUTOMATIC LINE SET UP MECHANIC: 07/20/17 1452 ADM IN [facility] [address] [place] [address]
[2017-07-20 20:00] VITALS: BP 145/77
[2017-07-21] VITALS: BP 121/69
--- NOTE | 2017-07-21 01:35 | NUR ---
PATIENT COMPLAINS ABOUT BURNING SENSATION TO LEFT HIP REVISION. BANDAGE WAS REDONE AT THE BEGINING OF SHIFT WITH 4x4 AND 4 ABD PADS. UNDER MAT WAS CHANGED DUE TO SATURATION OF BLOOD. WHEN FIRST BANDAGE WAS TAKEN OFF BLOOD OOZED OUT OF AQUASEAL DRESSING, WHICH WAS LEFT IN PLACE. ENRIKE DRAIN TO THE DISTAL PORTION OF THE DRESSING WAS THAT WAS MODERATELY FULL OF BLOODY DRAINAGE. WORKING ON GETTING PAINMEDICATION GIVEN 2 HOURS APART. WORKING ON TIRTATING O2 DOWN.
--- NOTE | 2017-07-21 02:14 | NUR ---
RN NOTE: PATIENT LAYING IN BED TALKING ON THE PHONE. 1/2NS INFUSING @100mL/hr TO THE LEFT WRIST. ICE PACK APPLIED TO LEFT HIP. ENRIKE DRAIN NOTED WITH BLOODY DRAINAGE. 2LPM ON VIA NASAL CANULA. PATIENT STATED THAT HER PAIN WAS HURTING BUT WAS TALKING CALMLY ON THE PHONE.
[2017-07-21 04:00] VITALS: BP 115/54
[2017-07-21 05:25] LABS: HEMATOCRIT 26.2 % (36.0-48.0); HEMOGLOBIN 8.7 g/dL (12-16); MCH 30.2 pg (26.0-34.0); MCHC 33.2 g/dL (31.0-37.0); MEAN PLATELET VOLUME 11.5 fL (7.4-10.4); RBC 2.88 10x6/uL (4.00-5.40); RDW 16.3 % (11.5-14.5)
--- NOTE | 2017-07-21 07:30 | NUR ---
PT COMPLAINS OF PAIN 10 OUT OF 10, REQUEST EDUCATIONAL AID, EDUCATIONAL AID SET UP, DENIES OTHER NEED, CALL LIGHT IN REACH, BED LOWEST POSITION, WILL CONTINUE TO MONITOR
[2017-07-21 09:45] VITALS: BP 137/91
--- NOTE | 2017-07-21 12:00 | NUR ---
RN NOTE; PT LYING IN BED NO SIGNS OF ACUTE DISTRESS. L WRIST IV INFUSING FLUIDS ORDERED. O2 VIA NASAL CANNULA. BED IN LOWEST POSITION, SIDE RAILS UP X 2, CALL LIGHT WITHIN REACH.
[2017-07-21 13:04] VITALS: BP 151/80
--- NOTE | 2017-07-21 14:00 | NUR ---
BANDAGE TO LEFT HIP REINFORCED
[2017-07-21 16:32] VITALS: BP 153/87
[2017-07-21 20:00] VITALS: BP 115/67
[2017-07-22] VITALS: BP 101/59
[2017-07-22 04:00] VITALS: BP 125/75
[2017-07-22 05:22] LABS: HEMATOCRIT 24.8 % (36.0-48.0); HEMOGLOBIN 8.2 g/dL (12-16); MCH 29.9 pg (26.0-34.0); MCHC 33.1 g/dL (31.0-37.0); MCV 90.5 fL (80.0-100.0); MEAN PLATELET VOLUME 11.3 fL (7.4-10.4); RBC 2.74 10x6/uL (4.00-5.40); WBC 10.9 10x3/uL (4.8-10.8)
[2017-07-22 05:42] LABS: ANION GAP 12.8 mmol/L (8-16); CARBON DIOXIDE 24.2 mmol/L (21.0-32.0); CREATININE - SERUM 0.9 mg/dL (0.6-1.3)
[2017-07-22 05:44] LABS: CALCIUM 6.8 mg/dL (8.5-10.1)
--- NOTE | 2017-07-22 07:30 | NUR ---
RECIEVED PT DURING WALKING ROUNDS. PT RESTING IN BED WITH COMPLAINTS OF PAIN OF A 8 ON A SCALE OF 1-10. CASH TELLER IN USE. ASSESSMENT DONE PER FLOWSHEET. BED IN LOW POSITION AND CALL LIGHT WITHIN REACH. WILL CONTINUE TO MONITOR.
[2017-07-22 09:42] VITALS: BP 124/77
[2017-07-22 11:55] VITALS: BP 90/50
[2017-07-22 15:53] VITALS: BP 110/59
[2017-07-22 20:00] VITALS: BP 100/57
[2017-07-23] VITALS: BP 103/49
[2017-07-23 04:00] VITALS: BP 106/63
--- NOTE | 2017-07-23 07:35 | NUR ---
ASSESSMENT COMPLETE. IV TO L FA PATENT. / NS INFUSING AT 100 CC/HR. AUTOMOTIVE UPHOLSTERER DILAUDID 0.2-10-4 IN USE FOR PAIN CONTROL. DRESSING INTACT TO L HIP. ENRIKE X 1 TO L HIP. ABDUCTION PILLOW IN USE. SCD'S IN USE TO BILAT LEGS. QUINONES PATENT DRAININIG YELLOW URINE. SL TO R FA.
[2017-07-23 07:54] LABS: HEMATOCRIT 22.1 % (36.0-48.0)
[2017-07-23 08:06] LABS: ANION GAP 11.7 mmol/L (8-16); CARBON DIOXIDE 26.7 mmol/L (21.0-32.0); POTASSIUM - SERUM 3.4 mmol/L (3.5-5.1)
[2017-07-23 08:08] LABS: CALCIUM 6.7 mg/dL (8.5-10.1)
[2017-07-23 08:09] LABS: HEMOGLOBIN 7.4 g/dL (12-16)
[2017-07-23 09:40] VITALS: BP 116/59
--- NOTE | 2017-07-23 10:10 | NUR ---
SL TO R WRIST WITH TENDERNESS AND SWELLING WHEN FLUSHED. SL REMOVED. CATHETER TIP INTACT.
--- NOTE | 2017-07-23 10:15 | NUR ---
SL SITED TO [facility] WITH 22 GUAGE X 1 ATTEMPT BY LINETTE ALCANTAR RN.
--- NOTE | 2017-07-23 10:40 | NUR ---
1ST UNIT PRBC INFUSION STARTED.
[2017-07-23 10:42] VITALS: BP 88/39
--- NOTE | 2017-07-24 | NUR ---
EYES CLOSED RESPIRATIONS WITH EASE AND UNLABORED.
[2017-07-24 04:00] VITALS: BP 126/77
--- NOTE | 2017-07-24 07:30 | NUR ---
ASSESSMENT COMPLETE. IV TO L FA PATENT. ASSOCIATE TRAINER DILAUDID 0.2-10-4 IN USE FOR PAIN CONTROL. ENRIKE X 1 TO L HIP. DRESSING TO L HIP INTACT. SCD'S IN USE TO BILAT LEGS. QUINONES PATENT DRAINING YELLOW URINE. DENIES ANY NEEDS AT THIS TIME.
[2017-07-24 08:50] VITALS: BP 125/78
[2017-07-24 08:51] LABS: MCHC 33.7 g/dL (31.0-37.0); MCV 88.9 fL (80.0-100.0); MEAN PLATELET VOLUME 11.2 fL (7.4-10.4); RBC 3.07 10x6/uL (4.00-5.40); RDW 15.4 % (11.5-14.5); WBC 10.9 10x3/uL (4.8-10.8)
[2017-07-24 08:53] LABS: HEMATOCRIT 27.3 % (36.0-48.0); HEMOGLOBIN 9.2 g/dL (12-16)
--- NOTE | 2017-07-24 11:04 | NUR ---
COMPLAINING OF L HIP PAIN. PERCOCET GIVEN.
[2017-07-24 11:13] VITALS: Ht 175.3 cm; Wt 129.3 kg
[2017-07-24 12:03] VITALS: BP 104/53
--- NOTE | 2017-07-24 14:26 | NUR ---
COMPLAINING OF TENDERNESS TO L LOWER LEG WHEN TOUCHED. SCD REMOVED FROM L LEG. DRY, DARK SCALY SKIN NOTED TO LLE.
--- NOTE | 2017-07-24 16:15 | NUR ---
DRESSING TO L HIP CHANGED. STEFANY INTACT TO INCISION. INCISION CLEANED WITH WOUND CLEANSER AND COVERED WITH AQUACEL AG. ABDUCTION PILLOW IN USE. REFUSING TO TURN ON SIDE AT THIS TIME.
[2017-07-24 16:21] VITALS: BP 107/64
--- NOTE | 2017-07-24 17:41 | NUR ---
CONTINUING TO COMPLAIN OF PAIN. 0.4 MG BOLUS GIVEN.
--- NOTE | 2017-07-24 18:15 | NUR ---
REPOSITIONED TO RIGHT SIDE.
[2017-07-24 19:00] VITALS: BP 92/58
--- NOTE | 2017-07-24 19:41 | NUR ---
AWAKE AND ALERT. ORIENTED X3. NO NEW C/O AT THIS TIME. LUNGS ARE CLEAR BILATERALLY,NO COUGH NOTED. SKIN IS INTACT WITHOUT REDNESS EXCEPT INCISION TO LEFT HIP WHICH HAS A DRY INTACT DRESSING IN PLACE. ENRIKE PATENT WITH SEROUS SANGUINESS DRAINAGE NOTED. IV TO LEFT FA PATENT WITHOUT REDNESS AT INSERTION SITE. SL TO RIGHT FOREARM IS PATENT WITHOUT REDNESS AT INSERTION SITE. QUINONES PATENT WITH CLEAR YELLOW URINE. DENIES NEEDS.
[2017-07-25] VITALS: BP 96/61
--- NOTE | 2017-07-25 00:52 | NUR ---
PT RESTING IN BED WITH QUINONES PATENT TO CLEAR YELLOW URINE PER GRAVITY FLOW CALL LIGHT IN REACH SIDE RAILS UP X [address] PER ORDER[address] ENRIKE DRAIN NOTED TO LEFT HIP
--- NOTE | 2017-07-25 02:55 | NUR ---
PT C/O PAIN REQUESTED AND RECIEVED PERCOCET PER ORDER
[2017-07-25 04:00] VITALS: BP 148/52
--- NOTE | 2017-07-25 05:18 | NUR ---
SCHEDULED MEDICATIONS ADMINISTERED WELL BOLUS OF DILAUDID PER ORDER.
[2017-07-25 06:26] LABS: BASOPHILS 0.1 % (0-2); EOSINOPHILS 0.9 % (0-7); HEMATOCRIT 27.7 % (36.0-48.0); HEMOGLOBIN 9.3 g/dL (12-16); IMMATURE GRANULOCYTES 0.3 % (0-5); LYMPHOCYTES 13.4 % (15-50); MCH 30.3 pg (26.0-34.0); MCHC 33.6 g/dL (31.0-37.0); MCV 90.2 fL (80.0-100.0); MEAN PLATELET VOLUME 10.9 fL (7.4-10.4); NEUTROPHILS 76.3 % (40-80); RBC 3.07 10x6/uL (4.00-5.40); RDW 15.5 % (11.5-14.5); WBC 10.3 10x3/uL (4.8-10.8)
[2017-07-25 06:36] LABS: PLATELET COUNT 241 10x3/uL (130-400)
[2017-07-25 06:46] LABS: C-REACTIVE PROTEIN 12.5 mg/dL (0.0-0.9); CARBON DIOXIDE 29.4 mmol/L (21.0-32.0); CREATININE - SERUM 0.9 mg/dL (0.6-1.3); POTASSIUM - SERUM 3.4 mmol/L (3.5-5.1)
--- NOTE | 2017-07-25 06:47 | NUR ---
PRN PERCOCET ADMINISTERED FOR PAIN 7/10 AT THIS TIME.
--- NOTE | 2017-07-25 07:30 | NUR ---
RECIEVED PT DURING WALKING ROUNDS, PT RESTING IN BED WITH COMPLAINTS OF PAIN OF AN 8 ON A SCALE OF 1-10, AWNING ASSEMBLER IN USE. ENRIKE DRAIN EMPTIED AND DRESSING CHANGED TO LEFT HIP AT THIS TIME. BED LINEN CHANGED. ASSESSMENT DONE PER FLOWSHEET. BED IN LOW POSITION AND CALL LIGHT WITHIN REACH. WILL CONTINUE TO MONITOR.
[2017-07-25 07:45] LABS: ERYTHROCYTE SEDIMENTATION RATE 66 mm/hr (0-20)
[2017-07-25 08:19] VITALS: BP 121/73
--- NOTE | 2017-07-25 11:25 | NUR ---
LIFE ENRICHMENT SPECIALIST BOLUS DOSE GIVEN AT THIS TIME FOR PAIN OF A 10 ON A SCALE OF 1-10. BED IN LOW POSITION AND CALL LIGHT WITHIN REACH. WILL CONTINUE TO MONITOR.
[2017-07-25 12:26] VITALS: BP 125/83
--- NOTE | 2017-07-25 13:13 | NUR ---
Patient Name: JACQUELINE ALMODOVAR Admission Status: Elective Accout number: [id number] Admission Date: 07-20-2017 : 1970 Admission Diagnosis:INFECT/INFLM REACTION DUE TO INTERNAL LEFT HIP PROSTH, Attending: ELSY KRAUSE Current LOS: 5 Anticipated DC Date: Planned Disposition: [facility] Facility Primary Insurance: [facility] Discharge Planning Comments: CM met with patient to assess discharge planning needs. Patient stated that she is a partially dependent on her . She stated that they help each other. Patient discharge plan is to go to [facility] at discharge. Referral sent to [facility]. Patient stated that she has a bedside commode, cane. walker at home. She is not currently using any HH services. There are 7 steps in her home. CM will continue to follow and assist with discharge planning/needs. PCP: [facility] Alfonso [facility]rbano () [phone] Home Care Nurse: Tiffany Siddiqi * Is the patient Alert and Oriented? Yes 0 * How many steps to enter\exit or inside your home? 7 0 * PCP [facility] 0 * Pharmacy [facility] 0 * Preadmission Environment Home with Family 0 * ADLs Partial Dependent 0 * Partial ADLs (Assistance needed) Ambulation Bathing Toileting 0 * Equipment Bedside Commode Cane Rolling Walker 0 * List name and contact numbers for known caregivers / representatives who currently or will assist patient after discharge: ALFONSO URBANO [phone] 0 * Additional services required to return to the preadmission environment? Yes 0 * Can the patient safely return to the preadmission environment? No 0 * Has this patient been hospitalized within the prior 30 days at any hospital? No 0 Grand Total: 0
--- NOTE | 2017-07-25 13:15 | NUR ---
Patient is current with [facility]
[2017-07-25 19:00] VITALS: BP 91/55
[2017-07-26 04:00] VITALS: BP 112/69
--- NOTE | 2017-07-26 07:30 | NUR ---
RECIEVED PT DURING WALKING ROUNDS. PT RESTING IN BED WITH COMPLAINTS OF PAIN OF AN 8 ON A SCALE OF 1=10. FLAT SORTER PROCESSOR IN USE. ASSESSMENT DONE PER FLOWSHEET. BED IN LOW POSITION AND CALL LIGHT WITHIN REACH. WILL CONTINUE TO MONITOR.
--- NOTE | 2017-07-26 09:35 | NUR ---
SUPERVISOR METAL CANS BOLUS GIVEN AT THIS TIME PER ORDER FOR PAIN OF A 10 ON A SCALE OF 1-10. BED IN LOW POSITION AND CALL LIGHT WITHIN REACH. WILL CONTINUE TO MONITOR.
[2017-07-26 09:46] VITALS: BP 110/69
[2017-07-26 12:33] VITALS: BP 93/51
--- NOTE | 2017-07-26 13:51 | NUR ---
BOLUS DOSE ADMINISTERED AT THIS TIME PER ORDER.
--- NOTE | 2017-07-26 14:54 | NUR ---
NUTRITION F/U PT TOLERATING ADA DIET WITH 100% INTAKE. WILL CONTINUE TO PROVIDE DIET, MONITOR PO INTAKE. RD FOLLOWING
--- NOTE | 2017-07-26 15:02 | NUR ---
[facility]
[2017-07-26 16:13] VITALS: BP 92/52
[2017-07-26 17:59] VITALS: BP 91/58
[2017-07-27 00:40] VITALS: BP 100/43
[2017-07-27 04:56] VITALS: BP 104/52
--- NOTE | 2017-07-27 08:34 | NUR ---
AWAKE AND ALERT. ORIENTED X3. NO C/O AT THIS TIME. REPORTS SOME RELIEF WITH BOLUS DOSE. LUNGS ARE CLEAR BILATERALLY, NO COUGH NOTED. SKIN IS INTACT WITHOUT REDNESS EXCEPT INCISION TO LEFT HIP WHICH HAS A DRY INTACT DRESSING IN PLACE. SL TO RIGHT FOREARM AND IV TO LEFT FOREARM ARE PATENT WITHOUT REDNESS AT INSERTION SITE. QUINONES PATENT WITH CLEAR YELLOW URINE. DENIES NEEDS. NPO AT THIS TIEM.
--- NOTE | 2017-07-27 08:42 | NUR ---
ENRIKE TO LEFT HIP PATENT WITH SEROUS SANGUINESS DRAINAGE NOTED. QUINONES PATENT WITH CLEAR YELLOW URINE.
[2017-07-27 09:39] VITALS: BP 112/73
--- NOTE | 2017-07-27 10:00 | NUR ---
RESTING QUIETLY IN BED. DENIES NEEDS.
--- NOTE | 2017-07-27 12:30 | NUR ---
SURGERY CANCELLED AT THIS TIME. LUNCH SERVED IN ROOM. FEEDS SELF.
[2017-07-27 13:06] VITALS: BP 93/53
--- NOTE | 2017-07-27 16:00 | NUR ---
RESTING QUIETLY IN BED. DENIES NEEDS.
[2017-07-27 16:59] VITALS: BP 97/47
[2017-07-27 20:00] VITALS: BP 95/53
--- NOTE | 2017-07-27 21:16 | NUR ---
PATIENT REQUESTED A RECORD LABEL INTERN BOLUS FOR 10/10 PAIN.
[2017-07-28] VITALS (12 sets, daily range): BP systolic 87–151; BP diastolic 49–85
--- NOTE | 2017-07-28 02:32 | NUR ---
RN NOTE: PT RESTING QUIETLY IN SUPINE POSITION WITH EYES CLOSED AND UNLABORED BREATHING. IV PATENT WITH NS INFUSING AT 30 ML / HR. JEWELRY MOLD MAKER / DILAUDID IN USE FOR PAIN CONTROL. QUINONES CATHETER DRAINING TO GRAVITY WITH YELLOW URINE IN COLLECTION BAG. WILL CONTINUE TO MONITOR FOR NEEDS. CALL LIGHT WITHIN REACH.
[2017-07-28 05:28] LABS: HEMOGLOBIN 8.8 g/dL (12-16); MCH 29.6 pg (26.0-34.0); MCHC 32.6 g/dL (31.0-37.0); MCV 90.9 fL (80.0-100.0); MEAN PLATELET VOLUME 10.9 fL (7.4-10.4); RBC 2.97 10x6/uL (4.00-5.40); RDW 15.5 % (11.5-14.5); WBC 9.7 10x3/uL (4.8-10.8)
[2017-07-28 05:48] LABS: ANION GAP 8.1 mmol/L (8-16); CALCIUM 8.2 mg/dL (8.5-10.1); CARBON DIOXIDE 28.9 mmol/L (21.0-32.0); CREATININE - SERUM 0.9 mg/dL (0.6-1.3)
--- NOTE | 2017-07-28 07:36 | NUR ---
AWAKE AND ALERT. ORIENTED X3. NO C/O AT THIS TIME. LUNGS ARE CLEAR BILATERALLY, NO COUGH NOTED. SKIN IS INTACT WITHOUT REDNESS EXCEPT INCISION TO LEFT HIP,WHICH HAS A DRY INTACT DRESSING IN PLACE. ENRIKE PATENT WITH BLOODY DRAINAGE. IV TO LEFT FOREARM IS PATNET IS SL TO RIGHT FOREARM WHICH ARE WITHOUT REDNESS AT INSERTION SITE. PICC TO RIGHT UPPER ARM IS PATENT WITHOUT REDNESS AT INSERTION SITE. QUINONES PATENT WITH CLEAR YELLOW URINE. DENIES NEEDS.
--- NOTE | 2017-07-28 12:40 | NUR ---
OFF UNIT VIA BED FOR SURGERY.
--- NOTE | 2017-07-28 16:30 | NUR ---
RETURNED FROM SURGERY. A/O X3. VSS. DRESSING TO LEFT HIP DRY AND INTACT. DENIES NEEDS.
--- NOTE | 2017-07-28 18:23 | NUR ---
REFUSED SUPPER FOR NOW BUT KEPT TRAY AT BEDSIDE FOR LATER. NO NEEDS NOTED.
[2017-07-29] VITALS: BP 92/57
--- NOTE | 2017-07-29 03:59 | NUR ---
PATIENT RESTING IN BED WITH EYES CLOSED AND NO VISIBLE SIGNS OF DISTRESS. BED IN LOWEST POSITION AND CALL LIGHT WITHIN REACH.
[2017-07-29 04:00] VITALS: BP 109/65
[2017-07-29 05:01] LABS: BASOPHILS 0.1 % (0-2); EOSINOPHILS 0.1 % (0-7); HEMATOCRIT 28.8 % (36.0-48.0); HEMOGLOBIN 9.8 g/dL (12-16); IMMATURE GRANULOCYTES 0.4 % (0-5); LYMPHOCYTES 8.7 % (15-50); MCH 30.8 pg (26.0-34.0); MCV 90.6 fL (80.0-100.0); MEAN PLATELET VOLUME 10.6 fL (7.4-10.4); MONOCYTES 10.5 % (2-11); NEUTROPHILS 80.2 % (40-80); PLATELET COUNT 308 10x3/uL (130-400); RBC 3.18 10x6/uL (4.00-5.40); RDW 15.1 % (11.5-14.5)
[2017-07-29 05:02] LABS: WBC 15.4 10x3/uL (4.8-10.8)
[2017-07-29 05:26] LABS: ANION GAP 8.7 mmol/L (8-16); CARBON DIOXIDE 28.4 mmol/L (21.0-32.0); POTASSIUM - SERUM 3.1 mmol/L (3.5-5.1)
--- NOTE | 2017-07-29 08:25 | NUR ---
AM MEDS ADMINISTERED PER ORDER. CALL LIGHT IN REACH.
[2017-07-29 08:35] VITALS: BP 95/52
--- NOTE | 2017-07-29 10:35 | NUR ---
PT AOX4 RESP EVEN AND NONLABORED PT DENIES NEEDS AT THIS TIME IV TO RIGHT UPPER ARM PATENT AND INTACT AT THIS TIME SRX2 BED AT LOWEST SETTING AT THIS TIME CALL LIGHT WITHIN REACH WILL CONTINUE TO MONITOR
[2017-07-29 12:51] VITALS: BP 99/63
--- NOTE | 2017-07-29 14:17 | NUR ---
PT GIVEN SCHOOL SPEECH LANGUAGE PATHOLOGIST 0.4 DIL BOLUS AT THIS TIME
[2017-07-29 16:06] VITALS: BP 101/67
--- NOTE | 2017-07-29 17:18 | NUR ---
PT GIVEN BOLUS SENIOR WINDOWS ADMINISTRATOR DOSE AT THIS TIME
[2017-07-29 20:00] VITALS: BP 91/51
--- NOTE | 2017-07-30 03:26 | NUR ---
RN NOTE: PT RESTING IN LOW HOLLINGSWORTH'S POSITION WITH EYES CLOSED AND UNLABORED BREATHING. RIGHT PICC LINE PATENT WITH NS INFUSING AT 30 ML / HR. COMPUTER DESIGNER / DILAUDID IN USE FOR PAIN CONTROL. QUINONES CATHETER DRAINING TO GRAVITY WITH YELLOW URINE IN COLLECTION BAG. O2 IN USE VIA NC AT 2L. WILL CONTINUE TO MONITOR FOR NEEDS. CALL LIGHT WITHIN REACH.
[2017-07-30 04:00] VITALS: BP 105/74
[2017-07-30 05:34] LABS: MCH 30.2 pg (26.0-34.0); MCHC 33.3 g/dL (31.0-37.0); MCV 90.6 fL (80.0-100.0); MEAN PLATELET VOLUME 10.6 fL (7.4-10.4); RBC 2.98 10x6/uL (4.00-5.40); WBC 12.8 10x3/uL (4.8-10.8)
[2017-07-30 06:04] LABS: ANION GAP 9.8 mmol/L (8-16); CALCIUM 8.5 mg/dL (8.5-10.1); CREATININE - SERUM 1.1 mg/dL (0.6-1.3)
[2017-07-30 06:13] LABS: POTASSIUM - SERUM 2.8 mmol/L (3.5-5.1)
--- NOTE | 2017-07-30 07:00 | NUR ---
PATIENT RECEIVED ALERT IN MID HOLLINGSWORTH POSITION. NO SIGNS OF DISTRESS NOTED. DENIES NEEDS. SIDE RAILS UP X2. BED IN LOW POSITION. CALL LIGHT IN REACH.
--- NOTE | 2017-07-30 08:39 | NUR ---
PATIENT ALERT IN BED. NO SIGNS OF DISTRESS NOTED. SCHEDULED MEDICATION ADMINISTERED. DENIES NEEDS. SIDE RAILS UP X2. BED IN LOW POSITION. CALL LIGHT IN REACH.
[2017-07-30 08:57] VITALS: BP 112/67
--- NOTE | 2017-07-30 11:04 | NUR ---
PERCOCET ADMINISTERED PER PRN ORDER. DENIES FURTHER NEEDS. SIDE RAILS UP X2. BED IN LOW POSITION. CALL LIGHT IN REACH.
[2017-07-30 12:56] VITALS: BP 114/79
[2017-07-30 14:51] VITALS: BP 97/54
--- NOTE | 2017-07-30 15:10 | NUR ---
PATIENT RESTING QUIETLY. NO SIGNS OF DISTRESS NOTED. SCHEDULED MEDICATION ADMINISTERED WELL PRN PERCOCET. SIDE RAILS UP X2. BED IN LOW POSITION. CALL LIGHT IN REACH. DENIES FURTHER NEEDS.
[2017-07-30 16:53] VITALS: BP 96/63
--- NOTE | 2017-07-30 17:00 | NUR ---
ALERT IN MID HOLLINGSWORTH POSITION. SCHEDULED MEDICATION ADMINISTERED. DENIES NEEDS. SIDE RAILS UP X2. BED IN LOW POSITION. CALL LIGHT IN REACH. DENIES NEEDS.
[2017-07-30 20:00] VITALS: BP 99/54
--- NOTE | 2017-07-30 20:00 | NUR ---
ASSESSSMENT PER FLOWSHEET. DRESSING TO LEFT HIP INCISION C/D/I. ENRIKE DRAINS X2 PATENT AND COMPRESSED. QUINONES TO BEDSIDE DRAINAGE WITH YELLOW COLORED URINE. HOB UP 30 DEGREES. IV PATENT RT PICC LINE WITH NS AT 30CC'S/HR SITE CLEAR.
--- NOTE | 2017-07-30 21:00 | NUR ---
MEDS GIVEN PER JAN. SR UP X2 CALL LIGHT WITHIN REACH.
--- NOTE | 2017-07-31 | NUR ---
EYES CLOSED RESPIRATIONS WITH EASE AND UNLABORED.
--- NOTE | 2017-07-31 00:50 | NUR ---
C/O PAIN IN HER INCISIONAL AREA LEFT HIP. RATES PAIN LEVEL #6. PERCOCET 10 TAB ONE PO GIVEN FOR PAIN CONTROL.
--- NOTE | 2017-07-31 02:30 | NUR ---
EYES CLOSED RESPIRATIONS WITH EASE AND UNLABORED.
[2017-07-31 04:00] VITALS: BP 108/69
--- NOTE | 2017-07-31 04:30 | NUR ---
AWAKE VITAL SIGNS TAKEN SR UP X2 CALL LIGHT WITHIN REACH. REPOSITIONED FOR COMFORT.
--- NOTE | 2017-07-31 06:00 | NUR ---
C/O INCISIONAL PAIN RATES #8 PERCOCET TAB ONE PO GIVEN FOR PAIN CONTROL.
[2017-07-31 06:24] LABS: POTASSIUM - SERUM 3.2 mmol/L (3.5-5.1)
[2017-07-31 06:27] LABS: C-REACTIVE PROTEIN 25.1 mg/dL (0.0-0.9)
[2017-07-31 07:10] LABS: ERYTHROCYTE SEDIMENTATION RATE 108 mm/hr (0-20)
--- NOTE | 2017-07-31 07:30 | NUR ---
RECIEVED PT DURING WALKING ROUNDS. PT LAYING IN BED WITH COMPLAINTS OF PAIN OF A 8 ON A SCALE OF 1-10. NO MEDICATION TO BE GIVEN AT THIS TIME. ASSESSMENT DONE PER FLOWSHEET. BED IN LOW POSITION AND CALL LIGHT WITHIN REACH. WILL CONTINUE TO MONITOR.
[2017-07-31 08:25] VITALS: BP 107/68; BP 150/80
--- NOTE | 2017-07-31 12:10 | NUR ---
ENRIKE DRAINS REMVOED AT THIS TIME PER ORDER, DRESSING CHANGED TO PTS LEFT HIP. PT TOLERATED WELL, BED IN LOW POSITION AND CALL LIGHT WITHIN REACH. WILL CONTINUE TO MONITOR.
--- NOTE | 2017-07-31 13:00 | NUR ---
NUTRITION F/U CHART REVIEWED. PT TOLERATING REG DIET. 100% INTAKE MEALS. WILL CONTINUE TO PROVIDE DIET, HONOR FOOD PREFERENCES, MONITOR PO INTAKE. RD FOLLOWING
[2017-07-31 16:41] VITALS: BP 101/54
--- NOTE | 2017-07-31 20:00 | NUR ---
ASSESSMENT PER FLOWSHEET. IV PATENT RT UPPER ARM PICC LINE OF NS AT [facility]. SITE CLEAR. DRESSING TO LEFT HIP C/D/I. QUINONES TO BEDSIDE DRAINAGE WITH BRANNON COLORED UA.
--- NOTE | 2017-07-31 21:30 | NUR ---
ROUTINE SCHEDULED PAIN MEDS GIVEN PER JAN.
[2017-08-01] VITALS: BP 107/50
--- NOTE | 2017-08-01 | NUR ---
EYES CLOSED RESPIRATIONS WITH EASE AND UNLABORED.
--- NOTE | 2017-08-01 02:43 | NUR ---
C/O PAIN LEFT HIP AREA. PERCOCET 10 TAB ONE PO GIVEN FOR PAIN CONTROL.
[2017-08-01 04:00] VITALS: BP 100/60
--- NOTE | 2017-08-01 05:00 | NUR ---
EYES CLOSED RESPIRATIONS WITH EAS AND UNLABORED.
[2017-08-01 06:05] LABS: HEMATOCRIT 25.5 % (36.0-48.0); HEMOGLOBIN 8.3 g/dL (12-16); MCH 30.2 pg (26.0-34.0); MCHC 32.5 g/dL (31.0-37.0); MCV 92.7 fL (80.0-100.0); MEAN PLATELET VOLUME 10.6 fL (7.4-10.4); RBC 2.75 10x6/uL (4.00-5.40); RDW 14.9 % (11.5-14.5); WBC 10.4 10x3/uL (4.8-10.8)
--- NOTE | 2017-08-01 06:05 | NUR ---
MEDS GIVEN PER MAR.
[2017-08-01 06:10] LABS: ANION GAP 10.3 mmol/L (8-16); CARBON DIOXIDE 30.2 mmol/L (21.0-32.0); CREATININE - SERUM 1.1 mg/dL (0.6-1.3); POTASSIUM - SERUM 3.5 mmol/L (3.5-5.1)
--- NOTE | 2017-08-01 07:13 | NUR ---
REPORT RECEIVED FROM SALES DEVELOPMENT EXECUTIVE NURSE. CALL LIGHT IN REACH.
--- NOTE | 2017-08-01 07:48 | NUR ---
ASSESSMENT COMPLETED. AM MEDS ADMINISTERED EXCEPT FOR BP MEDS. REFUSES SCDs. CALL LIGHT IN REACH. WILL CONTINUE WITH PLAN OF CARE.
[2017-08-01 08:53] VITALS: BP 105/64
--- NOTE | 2017-08-01 09:05 | NUR ---
FLEXERIL AND PERCOCET PO. CALL LIGHT IN REACH.
--- NOTE | 2017-08-01 11:00 | NUR ---
PATIENT ALERT IN MID HOLLINGSWORTH POSITION WATCHING TV. NO SIGNS OF DISTRESS NOTED. DENIES NEEDS. BED IN LOW POSITION. SIDE RAILS UP X2. BED IN LOW POSITION. CALL LIGHT IN REACH.
[2017-08-01 12:21] VITALS: BP 102/60
--- NOTE | 2017-08-01 13:33 | NUR ---
AFERNOON MEDS ADMINISTERED WITH PERCOCET PO. HELD BP MED. CALL LIGHT IN REACH.
--- NOTE | 2017-08-01 14:34 | NUR ---
BENADRYL 25 MG SIVP PER C/O "ITCHING ALL OVER". STATES PAIN HAS DECREASED TO AN 8. RT IN ROOM ALSO TO DO BREATHING TREATMENT.
--- NOTE | 2017-08-01 15:30 | NUR ---
EYES CLOSED AT THIS TIME. RESP EVEN AND UNLABORED. CALL LIGHT IN REACH.
[2017-08-01 15:39] VITALS: BP 118/69
--- NOTE | 2017-08-01 17:11 | NUR ---
PICC LINE CHANGED PER HOSPITAL POLICY USING STERILE TECHNIQUE. PERCOCET AND FLEXERIL PO WITH EVENING MEDS. WILL CHANGE STAT LOCK AFTER DINNER.
--- NOTE | 2017-08-01 18:42 | NUR ---
STAT LOCK CHANGED. ALSO DRSG TO LEFT HIP AND LINENS CHANGED. NO OTHER CHANGES IN INITIAL ASSESSMENT. CALL LIGHT IN REACH. STILL REFUSES SCDs. WILL CONTINUE WITH PLAN OF CARE.
[2017-08-01 20:00] VITALS: BP 107/63
--- NOTE | 2017-08-01 20:00 | NUR ---
ASSESSMENT PER FLOWSHEET. HOB UP 35DEGREES. SR UP X2 CALL LIGHT WITHIN REACH DRESSING TO LEFT HIP C/D/I. IV PATENT RT UPPER ARM PICC LINE OF NS AT KVO 30CC'S/HR.QUINONES TO BEDSIDE DRAINAGE WITH BRANNON COLORED URINE.
--- NOTE | 2017-08-01 21:30 | NUR ---
MEDS GIVEN PER MAR. INCLUDING SCHEDULED PAIN MEDS.
--- NOTE | 2017-08-01 23:10 | NUR ---
EYES CLOSED RESPIRATIONS WITH EASE AND UNLABORED.
[2017-08-02] VITALS: BP 114/67
--- NOTE | 2017-08-02 01:54 | NUR ---
EYES CLOSED RESPIRATIONS WITH EASE AND UNLABORED.
--- NOTE | 2017-08-02 03:26 | NUR ---
C/O INCISIONAL PAIN LEFT HIP AND MUSCLE SPASMS. PERCOCET TAB ONE AND FLEXERIL TAB ONE PO GIVEN FOR PAIN AND MUSCLE SPASMS. TURNED TO RT SIDE WITH PILLOWS TO BACK.
[2017-08-02 04:00] VITALS: BP 104/63
--- NOTE | 2017-08-02 07:27 | NUR ---
REPORT RECEIVED FROM LINOLEUM TILE FLOOR LAYER NURSE. CALL LIGHT IN REACH.
[2017-08-02] MEDS ORDERED: ROCEPHIN 2 GM/D52 G1 IV (08:14)
[2017-08-02] MEDS ORDERED: VANCOMYCIN 1 GM/1 G1 IV (08:15)
[2017-08-02] MEDS ORDERED: SENOKOT-S TABLE1 TAB PO (08:17)
[2017-08-02] MEDS ORDERED: ELIQUIS2.5 MG PO (08:17)
[2017-08-02] MEDS ORDERED: FLORAJEN3 CAPS460 MG PO (08:17)
[2017-08-02] MEDS ORDERED: SOMA350 MG PO (08:19)
[2017-08-02] MEDS ORDERED: OxyCONTIN PO (08:19)
--- NOTE | 2017-08-02 08:31 | NUR ---
ASSESSMENT COMPLETED. SOMA PO WITH AM MEDS ADMINISTERED. REFUSES SCDs. CALL LIGHT IN REACH. WILL CONTINUE WITH PLAN OF CARE.
[2017-08-02 09:01] VITALS: BP 102/60
--- NOTE | 2017-08-02 10:59 | NUR ---
CARAFATE, PERCOCET, AND LACTINEX PO. REFUSING TO ALLOW ME TO REMOVE QUINONES CATH. STATES SHE IS NOT LEAVING UNTIL TOMORROW.
[2017-08-02 12:22] VITALS: BP 99/65
--- NOTE | 2017-08-02 12:30 | NUR ---
PT ASLEEP WITH NO VISABLE SIGNS OF DISCOMFORT. BED IN LOW POSITION AND CALL LIGHT WITHIN REACH. WILL CONTINUE TO MONITOR.
--- NOTE | 2017-08-02 14:10 | NUR ---
SPOKE WITH DR. KRAUSE ABOUT PATIENT NOT WANTING TO GO HOME, REQUESTS FOR IV DILAUDID AND ORAL KLONOPIN. NEW ORDER FOR KLONOPIN ORDER. STATES SHE HAS TO GO HOME AT THIS TIME.
--- NOTE | 2017-08-02 15:15 | NUR ---
AFTERNOON MEDS ADMINISTERED WITH PERCOCET PO. BENADRYL SIVP PER C/O ITCHING.
--- NOTE | 2017-08-02 15:29 | NUR ---
DR. KRAUSE IN ROOM TO SPEAK WITH PATIENT AT THIS TIME.
--- NOTE | 2017-08-02 16:04 | NUR ---
NOY PO WITH EVENING MEDS. CALL LIGHT IN REACH.
[2017-08-02 17:12] VITALS: BP 115/70
--- NOTE | 2017-08-02 18:19 | NUR ---
NO CHANGES IN INITIAL ASSESSMENT. CALL LIGHT IN REACH. WILL CONTINUE WITH PLAN OF CARE.
--- NOTE | 2017-08-02 19:00 | NUR ---
REPORT RECEIVED AND CARE OF PT ASSUMED. PT LYING IN SUPINE POSITION WITH EYES CLOSED AND UNLABORED BREATHING. RIGHT PICC LINE PATENT WITH NS INFUSING AT KVO. DRESSING ON LEFT HIP CLEAN AND DRY. QUINONES CATHETER DRAINING TO GRAVITY WITH YELLOW URINE IN COLLECTION BAG. WILL MONITOR FOR NEEDS.
[2017-08-02 20:00] VITALS: BP 101/67
--- NOTE | 2017-08-02 21:14 | NUR ---
HS MEDICATIONS GIVEN. WILL CONTINUE TO MONITOR FOR NEEDS.
--- NOTE | 2017-08-02 23:00 | NUR ---
PT RESTING QUIETLY IN SUPINE POSITION WITH EYES CLOSED AND UNLABORED BREATHING.
[2017-08-03] VITALS: BP 114/62
--- NOTE | 2017-08-03 01:25 | NUR ---
GAVE PT PERCOCET, ZOFRAN, AND SOMA PO PER PRN ORDERS PER PT REQUEST FOR PAIN NAUSEA. WILL MONITOR FOR EFFECTIVENESS.
[2017-08-03 04:00] VITALS: BP 99/54
--- NOTE | 2017-08-03 07:28 | NUR ---
REPORT RECEIVED FROM VP SCIENTIFIC NURSE. CALL LIGHT IN REACH.
[2017-08-03 08:48] VITALS: BP 99/65
--- NOTE | 2017-08-03 09:04 | NUR ---
ASSESSMENT COMPLETED. SOMA PO WITH AM MEDS ADMINISTERED. STILL REFUSES SCDs. CALL LIGHT IN REACH. WILL CONTINUE WITH PLAN OF CARE.
--- NOTE | 2017-08-03 10:50 | NUR ---
REPORT CALLED TO NURSE AT [facility].
--- NOTE | 2017-08-03 11:00 | NUR ---
DISCHARGED TO [facility] VIA AMBULANCE. NO C/O AT THIS TIME. DRESSING TO LEFT HIP IS DRY AND INTACT. PICC TO RIGHT UPPER ARM PATENT WITHOUT REDNESS AT INSERTION SITE.
--- NOTE | 2017-08-03 11:01 | NUR ---
DC'D TO AMBULANCE VIA [facility].
--- NOTE | 2017-08-03 11:37 | NUR ---
patient discharged to [facility] to a longterm bed via EMS family in room at [facility]
--- NOTE | 2017-08-06 11:28 | OP ---
PATIENT NAME: JACQUELINE ALMODOVAR MEDICAL RECORD: [id number] :70 LOCATION:[id number].MS [id number] ADMISSION DATE:07/20/17 SURGEON: ELSY KRAUSE MD DATE OF OPERATION: 07/28/2017 Orthopedic Surgery Operative Note PREOPERATIVE DIAGNOSES: 1. Dislocated cement spacer of the left hip. 2. Comminuted left femur fracture. POSTOPERATIVE DIAGNOSES: 1. Dislocated cement spacer of the left hip. 2. Comminuted left femur fracture. PROCEDURES: 1. Open reduction internal fixation of left hip fracture. 2. Placement of antibiotic cement spacer. SURGEON: Elsy Krause MD ANESTHESIA: General. INTRAOPERATIVE COMPLICATIONS: Essentially none. The femur was broken below the uri-cement spacer prosthetic. The prosthetic had dislocated from the acetabulum as the patient had a very large void of her posterior wall. 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 OPERATIVE SUMMARY IN DETAIL: After obtaining the appropriate preoperative orthopedic surgery consent as well as anesthetic consultation, evaluation and clearance, the patient was brought to the operating room and placed on the operating table in supine position. After general laryngeal mask was administered, the patient was placed in a right lateral decubitus position. All pressure points were well padded. She was held firmly to the operating table using the vacuum pack suction system as well as the strap and belts system. Left lower extremity and hip were then prepped and draped in routine sterile fashion. Previously placed lauren were removed. The upper two-thirds of the wound was opened again. The wound bed was fairly clean. The entire wound was opened again, dissection was then carried down to the tensor fascia madelaine, which was incised again. This patient had substantial scar tissue and is morbidly obese, thus making the surgery much more difficult; however, after exposure of the hip, the dislocated cement spacer/prosthesis was removed. At this portion, extended incision was carried down to the lateral epicondyle. Dissection was carried down to the iliotibial band which was incised to reveal the vastus lateralis. At this point, dissection was carried down to the lateral aspect of the femur. Care was taken to cauterize all penetrating arteries. The fracture was fully exposed as was more distal parts of the femur for plating. The fracture was reduced and held with bone reduction forceps while provisional cables were placed in 2 places about the fracture. Having completed this, the bone reduction forceps were removed and a 13-hole large frag plate was placed on the lateral side of the femur. A plate was affixed to the lateral side of the femur using a combination of Dall-Miles cables as well as unicortical locking screws. Prior to placement of this, an 11 x 200 mm mindy was placed in the canal OPERATIVE REPORT [id number] ALMODOVARJACQUELINE Mark of the femur to maintain its aperture as well as not crush the femur while using the Dall-Miles cables. Having completed this, this wound was copiously irrigated. A cement spacer with vancomycin admission to the cement was then placed into the acetabulum and well seated. Copious irrigation again was then followed by closure of the vastus lateralis, closure of the IT band, reapproximation of the gluteus medius and minimus back to the greater trochanter, closure of the IT band at a higher level. The skin and subQ was then closed with #1 Vicryl. This was followed by skin lauren. Please note the 2 Dann-Jimenes drains were pulled out the front in anterior aspect and left in 2 layers of the wound closure. These drains were sewn in with 2-0 silk. At this point, sterile dressings were applied. The patient was awakened, taken to recovery room in stable condition. She lost 800 cc of blood during the operation, but did get 2 units intraop. TRANSINT:[id number] Voice Confirmation ID: [id number] DOCUMENT ID: [id number] JIMI EL, ELSY WELLS at 1128 CC: [id number] DICTATION DATE: 07/28/17 1741 ROUTE AIDE: 07/28/171954 DIS IN 08/03/17 [facility] [address] [id number]
== END 2017-08-03 11:01 | DRG 464 ==
LOC: D.SDCHOLD 07-20 06:50 → D.MS 07-20 06:50 → D.SDCHOLD 07-20 08:40 → D.MS 07-20 14:10
PROVIDERS: Student in an Organized Health Care Education/Training Program; ADMIT Orthopaedic Surgery
PROC: 0SHB08Z Insertion of Spacer into Left Hip Joint, Open Approach (ICD-10-PCS; 2017-07-20)
PROC: 0SPB0JZ Removal of Synthetic Substitute from Left Hip Joint, Open Approach (ICD-10-PCS; principal; 2017-07-20 08:45)
PROC: 02HV33Z Insertion of Infusion Device into Superior Vena Cava, Percutaneous Approach (ICD-10-PCS; 2017-07-27)
PROC: B548ZZA Ultrasonography of Superior Vena Cava, Guidance (ICD-10-PCS; 2017-07-27)
PROC: 0QS904Z Reposition Left Femoral Shaft with Internal Fixation Device, Open Approach (ICD-10-PCS; 2017-07-28)
PROC: 0SHB08Z Insertion of Spacer into Left Hip Joint, Open Approach (ICD-10-PCS; 2017-07-28)
PROC: 0SPB08Z Removal of Spacer from Left Hip Joint, Open Approach (ICD-10-PCS; 2017-07-28)
DX: T84.52XA Infection and inflammatory reaction due to internal left hip prosthesis, initial encounter (principal); B19.10 Unspecified viral hepatitis B without hepatic coma; D62 Acute posthemorrhagic anemia; M84.452A Pathological fracture, left femur, initial encounter for fracture; Z68.41 Body mass index [BMI] 40.0-44.9, adult; I10 Essential (primary) hypertension; F17.200 Nicotine dependence, unspecified, uncomplicated; K21.9 Gastro-esophageal reflux disease without esophagitis; E66.01 Morbid (severe) obesity due to excess calories; E11.40 Type 2 diabetes mellitus with diabetic neuropathy, unspecified; R32 Unspecified urinary incontinence; T84.228A Displacement of internal fixation device of other bones, initial encounter; E87.6 Hypokalemia

== ENCOUNTER → 2017-08-06 15:00 | Outpatient (CLI) | payer MEDICARE ==
[2017-07-24 11:13] VITALS: BMI 42.1
[~2017-08-06 15:00] MED LIST changes: +FLORAJEN3 CAPS460 MG PO; +LEVAQUIN750 MG PO; +LISINOPRIL10 MG PO; +LOVENOX40 MG/0.4 SC; +MACROBID100 MG PO; +OxyCONTIN PO; +SENOKOT-S TABLE1 TAB PO; +VANCOMYCIN 1 GM/1 G1 IV
== END | disposition home or self-care (01) ==
LOC: D.RAD 15:00
DX: M25.562 Pain in left knee (principal)

== ENCOUNTER 2017-10-01 23:00 | Outpatient (CLI) | payer MEDICARE ==
[2017-09-28 16:34] LABS: BASOPHILS 0.1 % (0-2); EOSINOPHILS 2.4 % (0-7); HEMATOCRIT 35.6 % (36.0-48.0); HEMOGLOBIN 11.1 g/dL (12-16); IMMATURE GRANULOCYTES 0.1 % (0-5); LYMPHOCYTES 25.5 % (15-50); MCH 29.9 pg (26.0-34.0); MCHC 31.2 g/dL (31.0-37.0); MEAN PLATELET VOLUME 11.8 fL (7.4-10.4); MONOCYTES 5.1 % (2-11); NEUTROPHILS 66.8 % (40-80); PLATELET COUNT 235 10x3/uL (130-400); RBC 3.71 10x6/uL (4.00-5.40); RDW 14.3 % (11.5-14.5); WBC 7.1 10x3/uL (4.8-10.8)
[2017-09-28 16:41] LABS: APPEARANCE CLOUDY (CLEAR); BILIRUBIN NEGATIVE (NEGATIVE); COLOR YELLOW (YELLOW); GLUCOSE NEGATIVE (NEGATIVE); KETONE NEGATIVE (NEGATIVE); NITRITE POSITIVE (NEGATIVE); PROTEIN TRACE mg/dL (NEGATIVE); SPECIFIC GRAVITY 1.015 (1.005-1.020); UROBILINOGEN NORMAL (NORMAL)
[2017-09-28 16:43] LABS: BACTERIA MODERATE /hpf (NONE SEEN); EPITHELIAL CELLS 0-5 /hpf (0-5); RED CELLS - URINE 0-5 /hpf (0-5); WHITE CELLS - URINE >50 /hpf (0-5); YEAST <1+ /hpf (NONE SEEN)
[2017-09-28 16:45] LABS: APTT 35.2 SECONDS (22.8-39.4); INR 1.15 (0.85-1.17); PROTIME 14.6 SECONDS (11.6-15.0)
[2017-09-28 17:05] LABS: ANION GAP 10.6 mmol/L (8-16); CALCIUM 8.4 mg/dL (8.5-10.1); CARBON DIOXIDE 28.6 mmol/L (21.0-32.0); CREATININE - SERUM 1.4 mg/dL (0.6-1.3); POTASSIUM - SERUM 4.2 mmol/L (3.5-5.1)
[2017-09-28 17:34] LABS: ERYTHROCYTE SEDIMENTATION RATE 42 mm/hr (0-20)
[~2017-10-01 23:00] MED LIST changes: -LEVAQUIN750 MG PO; -LISINOPRIL10 MG PO; -LOVENOX40 MG/0.4 SC; -MACROBID100 MG PO
[2017-10-09 14:19] VITALS: BMI 46.4
== END 2017-10-01 23:01 ==
LOC: D.OPS 23:00
PROVIDERS: Orthopaedic Surgery
DX: M16.12 Unilateral primary osteoarthritis, left hip (principal); T84.59XA Infection and inflammatory reaction due to other internal joint prosthesis, initial encounter; Z01.810 Encounter for preprocedural cardiovascular examination; Z01.811 Encounter for preprocedural respiratory examination; Z01.812 Encounter for preprocedural laboratory examination; Z53.9 Procedure and treatment not carried out, unspecified reason

== ENCOUNTER 2017-10-05 19:05 | Inpatient (IN) | payer MEDICARE ==
[~2017-10-05] VITALS: Ht 175.3 cm; Wt 142.4 kg
[2017-10-05 19:48] LABS: BASOPHILS 0.1 % (0-2); EOSINOPHILS 1.6 % (0-7); HEMATOCRIT 35.4 % (36.0-48.0); HEMOGLOBIN 11.3 g/dL (12-16); IMMATURE GRANULOCYTES 0.1 % (0-5); LYMPHOCYTES 21.5 % (15-50); MCH 30.5 pg (26.0-34.0); MCHC 31.9 g/dL (31.0-37.0); MCV 95.4 fL (80.0-100.0); MEAN PLATELET VOLUME 11.7 fL (7.4-10.4); MONOCYTES 5.1 % (2-11); NEUTROPHILS 71.6 % (40-80); PLATELET COUNT 211 10x3/uL (130-400); RBC 3.71 10x6/uL (4.00-5.40); RDW 14.1 % (11.5-14.5)
[2017-10-05 19:55] LABS: APPEARANCE HAZY (CLEAR); SPECIFIC GRAVITY 1.015 (1.005-1.020)
[2017-10-05 19:57] LABS: EPITHELIAL CELLS 0-5 /hpf (0-5); RED CELLS - URINE 25-50 /hpf (0-5); WHITE CELLS - URINE 0-5 /hpf (0-5)
[2017-10-05 19:58] LABS: BACTERIA MANY /hpf (NONE SEEN)
[2017-10-05 20:02] LABS: COLOR RED/ORANGE (YELLOW)
[2017-10-05 20:03] LABS: ALBUMIN 3.1 g/dL (3.4-5.0); ANION GAP 13.8 mmol/L (8-16); BILIRUBIN - TOTAL 0.28 mg/dL (0.2-1.3); CALCIUM 7.9 mg/dL (8.5-10.1); CARBON DIOXIDE 27.8 mmol/L (21.0-32.0); CREATININE - SERUM 1.2 mg/dL (0.6-1.3); POTASSIUM - SERUM 3.6 mmol/L (3.5-5.1); PROTEIN - SERUM 7.3 g/dL (6.4-8.2)
[2017-10-05] MEDS ORDERED: LISINOPRIL10 MG PO (22:00)
--- NOTE | 2017-10-05 22:10 | NUR ---
PT ARRIVED TO ROOM 2101. AAO X4. RIGHT AC IV 20 G THAT IS S/L. PT HAS A CHRONIC QUINONES. UNKNOWN WHAT DATE IT WAS PUT IN. PT HAS A PURSE, PHONE AND AWNING FRAME MAKER, A BAG FULL OF CLOTHES AND A PINK WATCH ON HER WRIST. PT STATES SHE CANNOT WALK R/T THE HIP SPACER ON THE LEFT SIDE. STATES SHE CANNOT BEAR WEIGHT. PT DENIES ANY NEEDS. NO S/S OF DISTRESS. WILL CPOC
[2017-10-06] VITALS (7 sets, daily range): BP systolic 101–127; BP diastolic 51–84; BMI 46.4
--- NOTE | 2017-10-06 04:47 | NUR ---
PT C/O PAIN. STATING SHE TAKES OXYCODONE Q4 AT THE [facility] AND SHE WANTS ONE. I INFORMED THE PT THAT I HAVE TO HAVE AN ORDER AND I WILL WORK ON OBTAINING ONE BEFORE I LEAVE. PT AGREED. PT HAS NO S/S OF DISTRESS. DENIES ANY NEEDS. BED LOW AND CALL LIGHT IN REACH. WILL CPOC
--- NOTE | 2017-10-06 07:49 | NUR ---
AM ROUNDING- RECEIVED REPORT FROM TARPER NURSE SOLEDAD. PT IS CURRENTLY LAYING IN BED ON BACK WITH EYES CLOSED RESTING. ON ROOM AIR. NO MONITOR. IV SEEN TO RIGHT AC THAT IS CURRENTLY SALINE LOCKED. CHRONIC QUINONES SEEN. NO NEED AT THIS CURRENT TIME. WILL CONTINUE TO MONITOR AND CONTINUE WITH PLAN OF CARE.
--- NOTE | 2017-10-06 10:53 | NUR ---
SYDNIE BALTAZAR CAME TO INFORM ME THAT PT HAS HAD LARGE BM (ON BEDPAN). PT HAS HAD CONSTIPATION FOR A FEW DAYS.
--- NOTE | 2017-10-06 13:00 | NUR ---
PT ASKED ME PRIOR ON SHIFT IF SHE COULD HAVE SOMETHING FOR PAIN AND THAT DR. ESPITIA WAS PUTTING IN HER HOME MEDICAITONS. DR. ESPITIA WAS ON UNIT EARILER ON SHIFT BUT NO NEW ORDERS WERE RECEIVED. THIS NURSE CALLS DR. WALKER ANSWERING SERVICE AND SPOKE WITH ADA. ADA STATES SHE WILL PAGE DR. ESPITIA. WILL CONTINUE TO MONITOR.
--- NOTE | 2017-10-06 13:04 | NUR ---
RECEIVED CALL FROM REBECCA. DR. WALKER OFFICE WITH NEW ORDERS RECEIVED FOR PAIN MEDICATION.
--- NOTE | 2017-10-06 17:44 | NUR ---
PT IS CURRETNLY LAYING IN BED TALKING ON CELLPHONE. PT DENIES ANY NEED AT THIS TIME. WILL CONTINUE TO MONITOR.
--- NOTE | 2017-10-06 19:32 | NUR ---
PT IN BED. PROVIDED WET WASH CLOTH PER REQUEST. DENIES FURTHER NEEDS AT THIS TIME.
[2017-10-07] VITALS: BP 138/82
[2017-10-07 04:00] VITALS: BP 130/62
--- NOTE | 2017-10-07 06:23 | NUR ---
PT IN BED RESTING AROUSES TO VOICE DENIES NEEDS AT THIS TIME
--- NOTE | 2017-10-07 07:31 | NUR ---
AM ROUNDING- RECEIVED REPORT FROM BUCKLE GLUER NURSE DEVANG. PT IS CURRENLTY LAYING IN BED ON BACK WITH EYES CLOSED RESTING. ON ROOM AIR. NO MONITOR. IV SEEN TO RIGHT AC WITH NS RUNNING AT 75CC. CHRONIC QUINONES SEEN WITH CONCENTRATED URINE. NO NEED AT THIS TIME. WILL CONTINUE TO MONITOR AND CONTINUE WITH PLAN OF CARE.
[2017-10-07 08:00] VITALS: BP 135/80
[2017-10-07 12:00] VITALS: BP 134/78
--- NOTE | 2017-10-07 12:23 | NUR ---
PRN PERCOCET GIVEN FOR LEFT LEG PAIN PER PATIENT REQUEST
[2017-10-07 16:00] VITALS: BP 144/83
--- NOTE | 2017-10-07 19:32 | NUR ---
PT IN BED RESTING. AROUSES TO VOICE. DENIES NEEDS AT THIS TIME.
[2017-10-07 21:01] VITALS: BP 115/72
[2017-10-08] VITALS (7 sets, daily range): BP systolic 116–139; BP diastolic 45–80; BMI 46.4
--- NOTE | 2017-10-08 07:15 | NUR ---
RECIEVED REPORT ON PATIENT, PATIENT IS SLEEPING AT THIS TIME, NAD NOTED. CHEST RISES AND FALLS EQUALLY. PATIENT HAS A R AC IV WITH NS INFUSING AT 75. BED IS LOW AND LOCKED. CALL LIGHT IN REACH. WILL CONT TO MONITOR PATIENT. CPOC
--- NOTE | 2017-10-08 09:30 | NUR ---
MORNING MEDICATIONS GIVEN, DENIES ANY FURTHER NEEDS. CPOC
--- NOTE | 2017-10-08 11:00 | NUR ---
20 G IV RESITED TO L WRIST, IV IN R AC, INFILTRATED. DC WITH CATH TIP INTACT. CPOC
--- NOTE | 2017-10-08 12:30 | NUR ---
PATIENT SITTING UP IN BED, EATING LUNCH. DENIES ANY NEEDS AT THIS TIME. CPOC
--- NOTE | 2017-10-08 14:30 | NUR ---
PATIENT RESTING, NAD NOTED AT THIS TIME. BED LOW AND LOCKED. AROUSES TO VOICE. DENIES ANY NEEDS. CPOC
--- NOTE | 2017-10-08 17:31 | NUR ---
PATIENT SITTING UP IN BED EATING DINNER. DENIES ANY NEEDS AT THIS TIME. CPOC
--- NOTE | 2017-10-08 17:59 | NUR ---
PERCOCET GIVEN FOR PAIN 8/10 IN HIP AND BACK. CPOC
--- NOTE | 2017-10-08 19:08 | NUR ---
PATIENT INFORMED MY SHIFT WAS ALMOST OVER. DENIES ANY NEEDS. CPOC
[2017-10-09 00:37] VITALS: BP 119/72
--- NOTE | 2017-10-09 02:30 | NUR ---
PATIENT IS RESTING WELL IN BED, RESPIRATIONS EVEN AND UNLABORED. CALL LIGHT IS IN REACH, WILL CONTINUE TO MONITOR.
[2017-10-09 04:20] VITALS: BP 112/67
--- NOTE | 2017-10-09 07:10 | NUR ---
REPORT RECEIVED ON PATIENT. MORNING ROUNDS MADE. PATIENT RESTING IN BED WITH EYES CLOSED. EASILY AROUSED WHEN SPOKEN TO. DENIES ANY NEEDS AT THIS TIME. CPOC.
[2017-10-09 08:00] VITALS: BP 106/63
--- NOTE | 2017-10-09 09:25 | NUR ---
PATIENT SITTING UP IN BED. EXPLAINED TO HER WHY SHE IS ON ISOLATION PERCAUTION. ALL QUESTIONS ANSWERED. DENIES ANY NEEDS AT THIS TIME. CPOC.
[2017-10-09 12:00] VITALS: BP 108/32
--- NOTE | 2017-10-09 12:32 | NUR ---
PATIENT SITTING UP IN BED EATING LUNCH, DENIES ANY NEEDS. CPOC
[2017-10-09 14:19] VITALS: Ht 175.3 cm; Wt 142.4 kg
--- NOTE | 2017-10-09 14:50 | NUR ---
PATIENT SITTING UP IN BED, WATCHING TV. INFORMED PATIENT HER ABX WERE SWITCHED AND EXPLAINED IN FULL. PT VOICED UNDERSTANDING. ADVISED THERE IS AN ORDER TO REMOVE HER QUINONES. PT WOULD LIKE TO WAIT. STATES SHE "WETS A LOT". OFFERED A BEDSIDE COMODE OR BEDPAN. STATES SHE HAS "NO CONTROL OF MY BLADDER" AND USES DEPENDS AT THE ALF. ADVISED WE CAN GET HER SOME BRIEFS. VOICED UNDERSTANDING. TOLD PATIENT WE COULD WAIT TO DC QUINONES UNTIL I BRING HER MEDS AROUND. SHE WAS AGREEABLE. CPOC.
[2017-10-09 16:00] VITALS: BP 125/69
--- NOTE | 2017-10-09 18:50 | NUR ---
PATIENT LAYING IN BED. JONI WHITE'Yolanda PER MD ORDER. INSTRUCTED TO USE CALL LIGHT WHEN SHE NEEDS TO URINATE SO SHE CAN GET ASSISTANCE. PATIENT VOICED UNDERSTANDING, BUT STATES SHE IS INCONTINENT. INSTRUCTED TO LET SOMEONE KNOW SOON SHE IS WET SO THEY CAN CHANGE LINENS AND PREVENT ANY SKIN BREAKDOWN. VOICED UNDERSTANDING. CPOC.
--- NOTE | 2017-10-09 19:01 | NUR ---
EVENING ROUNDS MADE. PATIENT DENIES ANY NEEDS AT THIS TIME. CPOC.
[2017-10-09 20:00] VITALS: BP 134/65
--- NOTE | 2017-10-09 20:00 | NUR ---
ROUNDING NOTE: AT THE CHANGE OF SHIFT PT IS NOTED TO BE AWAKE, ALERT, ORIENTED X3. SHE HAS BEEN GETTING UP AD YANETH WITH STAND BY ASSIST/ SUPERVISION. SHE CAME FROM [facility] AND WILL BE RETURNING THERE AT D/C FOR CONTINUED STR. PT HAS LEFT FOREARM IV W/ NS RUNNING AT 75CC/HR. PT'S QUINONES CATH WAS D/C'D EARLIER TODAY. PT IS NERVOUS ABOUT THIS B/C SHE HASN'T ABLE TO GET OOB DUE TO SPACER BEING IN HER HIP SECONDARY TO A SEVERE INFECTION IN HER BONE FOLLOWING HER HIP SURGERY. PT IS REQUESTING PAIN MEDS WITH HER NIGHTIME MED PASS. WILL CONT TO MONTIOR.
[2017-10-10] VITALS: BP 110/60
--- NOTE | 2017-10-10 00:30 | NUR ---
PT IS AGAIN REQUESTING PRN PAIN MEDS EVEN THROUGH SHE HAS ALREADY HAD HER MS CONTIN ADN PERCOCET. ANOTHER PRN DOSE OF PERCOET GIVEN PER MD ORDER. DISCUSSED NONPHARMACOLOGICAL PAIN MANAGEMENT IDEAS. WILL CONT TO MONITOR.
[2017-10-10 04:00] VITALS: BP 99/55
--- NOTE | 2017-10-10 04:11 | NUR ---
PT HAS BEEN SLEEPING THE REST OF THE NIGHT, COMFORTABLE. WILL CONT TO MONITOR.
--- NOTE | 2017-10-10 07:53 | NUR ---
AM ROUNDS - PT IN BED AND APPEARS TO BE SLEEPING AT THIS TIME WITH EQUAL AND NON LABORED BREATHING. PT IS ON ROOM AIR. IV TO LEFT FA, NS AT 75CC/HR. CONTACT ISOLATION. BED AT LOWEST POSITION. CALL WATERMAN IN USE/REACH. SIDE RAILS UP X2. WILL CONITNUE TO MONITOR
[2017-10-10] MEDS ORDERED: LEVAQUIN750 MG PO (09:35)
[2017-10-10] MEDS ORDERED: KEFLEX500 MG PO (09:35)
[2017-10-10] MEDS ORDERED: LOVENOX40 MG/0.4 SC (09:36)
[2017-10-10 10:31] VITALS: BP 103/62
--- NOTE | 2017-10-10 10:32 | NUR ---
Patient Name: JACQUELINE ALMODOVAR Admission Status: ER Accout number: [id number] Admission Date: 10-05-2017 : 1970 Admission Diagnosis: Attending: DEDE ESPITIA Current LOS: 5 Anticipated DC Date: 10-10-2017 Planned Disposition: [facility] Facility Primary Insurance: [facility] PLANNED EXTERNAL PROVIDER: [facility] Discharge Planning Comments: * Is the patient Alert and Oriented? Yes 0 * How many steps to enter\exit or inside your home? NONE 0 * PCP DR. INFANTE 0 * [facility] * Preadmission Environment [facility] Facility 0 * [facility] * ADLs Partial Dependent 0 * Partial ADLs (Assistance needed) Bathing Dressing Medication Management Toileting 0 * Equipment Other 0 * Other Equipment ALL MEDICAL EQUIPMENT PROVIDED BY FACILITY 0 * List name and contact numbers for known caregivers / representatives who currently or will assist patient after discharge: ROBERT SHELDONER, 0 * Community resources currently utilized None 0 * Please name any agencies selected above. NONE 0 * Additional services required to return to the preadmission environment? No 0 * Can the patient safely return to the preadmission environment? Yes 0 * Has this patient been hospitalized within the prior 30 days at any hospital? No 0 CM RECEIVED DISCHARGE ORDER, MET WITH PT IN ROOM WHO REPORTS SHE IS IN REHAB AT [facility], WILL RETURN THERE TODAY; PT ASKED THAT CM CALL HER BROTHER TO NOTIFY HIM OF HER DISCHARGE BACK TO REHAB. CM CALLED ROBERT SHELDONER, , NOTIFIED OF PT'S DISCHARGE BACK TO [facility]. PT HAS MANAGED MEDICARE AND REQUIRES PREAUTHORIZATION TO RETURN TO REHAB. PT IS AWARE OF THIS; IMPORTANT MESSAGE FROM MEDICARE PROVIDED AND EXPLAINED. CM CALLED HERIBERTO, CLINICAL LIAISON FOR [facility], , ASKED FOR REHAB READMISSION. CM FAXED REFERRAL TO [facility] VIA [employer]ERT[employer] AT [phone]. WHEN AUTHORIZED BY INSURANCE FOR DISCHARGE BACK TO REHAB, FAX DISCHARGE INFORMATION TO [facility] AT [phone]. NURSE REPORT TO BE CALLED TO [facility] AT [phone]. FACILITY VAN OR AMBULANCE TO BE ARRANGED, DEPENDING ON PT'S ABILITY TO SIT SAFELY FOR DURATION OF TRANSPORATION. Environmental Program Manager: Julian Lugo
[2017-10-10 13:23] VITALS: BP 129/70
[2017-10-10 17:10] VITALS: BP 115/70
--- NOTE | 2017-10-10 17:46 | NUR ---
PT IN BED AT THIS TIME AND APPEARS TO BE SLEEPING WITH EQUAL AND NON LABORED BREATHING. WILL CONTINUE MONITOR
--- NOTE | 2017-10-10 19:30 | NUR ---
PT IN BED WITH HOB UP FOR COMFORT. WATCHING TV. NO O2. LEFT FA NS @ 75. CONTACT ISOLATION ESBO IN URINE. ALERT & ORIENTED. INCONTINENT. LEFT HIP SURGERY PT STATED THAT IT WAS "09/19/17". BED IN LOWEST POSITION AND CALL LIGHT WITHIN REACH.
[2017-10-10 20:27] VITALS: BP 90/50
[2017-10-11 00:07] VITALS: BP 110/58
--- NOTE | 2017-10-11 00:32 | NUR ---
BED SCALE NOT WORKING AND PT UNABLE TO GET UP. UNABLE TO OBTAIN DAILY WEIGHT.
--- NOTE | 2017-10-11 04:59 | NUR ---
LINK CUTTER AT BEDSIDE TO OBTAIN VITALS, CALL LIGHT IN REACH. WILL CONTINUE WITH PLAN OF CARE.
[2017-10-11 05:13] VITALS: BP 105/66
--- NOTE | 2017-10-11 07:11 | NUR ---
AM ROUNDING- RECEIVED REPORT FROM MANAGER EMERGENCY DEPARTMENT NURSE DELANEY. PT IS CURRENTLY LAYING IN BED WITH EYES CLOSED RESTING. ON ROOM AIR. NO MONITOR. IV SEEN TO LEFT FOREARM WITH NS RUNNING AT 75CC. NO NEED AT THIS CURRENT TIME. D/C ORDERS ARE IN CHART. FLOR MAST IS AWARE PT IS AWAITING RETIREMENT. WILL CONTINUE TO MONITOR AND CONTINUE WITH PLAN OF CARE.
[2017-10-11 08:40] VITALS: BP 102/51
--- NOTE | 2017-10-11 12:32 | NUR ---
PT GIVEN PERCOCET PRN ORDERED FOR 8/10 LEFT THIGH PAIN. NO FURTHER NEED AT THIS TIME. WILL CONTINUE TO MONITOR.
[2017-10-11 12:58] VITALS: BP 91/49
--- NOTE | 2017-10-11 13:47 | NUR ---
Nutrition follow-up: Diet changed to regular PO intake 100% of meals Labs reviewed Wt: 314# RDN following.
[2017-10-11 16:30] VITALS: BP 97/61
--- NOTE | 2017-10-11 18:08 | NUR ---
PT IS CURRENTLY SITTING UP IN BED WITH EYES OPEN RESTING EATING DINNNER TRAY. PT REQUESTING TO HAVE LIGHTS TURNED OFF AND DOOR CLOSED. DID PT REQUESTED. NO NEED AT THIS TIME. WILL CONTINUE TO MONITOR.
[2017-10-11 22:08] VITALS: BP 136/71
--- NOTE | 2017-10-11 22:27 | NUR ---
PATIENT A&O X 4, IV LEFT FOREARM NS AT 75ML/HOUR , CONTACT ISOLATION, SIDE RAILS UP X 2, BED IN LOWEST POSITION AND LOCKED, ASSISTED PATIENT WIT BEDPAN, CALL LIGHT AND HYDRATION IN REACH, NO OTHER NEEDS VOICED, WILL CONTINUE PLAN OF CARE, WILL CONTINUE TO MONITOR.
--- NOTE | 2017-10-11 22:53 | NUR ---
PRN PERCOCET GIVEN FOR HIP PAIN 9 OF 10 AT 22;50, WILL CONTINUE TO MONITOR.
--- NOTE | 2017-10-12 02:53 | NUR ---
PATIENT GIVEN PRN PERCOCET FOR HIP PAIN 9 OF 10 AT 02;50 AND PRN SOMA AT 02:50.
[2017-10-12 05:06] VITALS: BP 113/61
--- NOTE | 2017-10-12 07:24 | NUR ---
AM ROUNDING- RECEIVED REPORT FROM RANGE TECHNICIAN NURSE HANNA. PT IS CURRENTLY SITTING UP IN BED TALKING ON CELLPHONE. PT STATES SHE IS SUPPOSE TO GO BACK TO [facility] TODAY. ON ROOM AIR. NO MONITOR. IV SEEN TO LEFT FOREARM WITH NS RUNNING AT 75CC. NO NEED AT THIS CURRENT TIME. WILL CONTINUE TO MONITOR AND CONTINUE WITH PLAN OF CARE.
[2017-10-12 09:17] VITALS: BP 129/65; BP 163/73
[2017-10-12 13:14] VITALS: BP 105/60
--- NOTE | 2017-10-12 15:15 | NUR ---
Patient Name: JACQUELINE ALMODOVAR Encounter No: [id number] : 1970 Primary Insurance: [employer] Anticipated DC Date: 10-12-2017 Planned Disposition: [facility] Facility External Planned Provider: [facility] MEDICARE REHAB BED DCP follow-up note: CM RECEIVED MESSAGE FROM HERIBERTO OF [facility], INSURANCE AUTHORIZATION RECEIVED FOR REHAB SERVICES. CM NOTIFIED FLOW CORRDINATOR AND DR ESPITIA'S NURSE REBECCA. CM RECEIVED DISCHARGE ORDER, NOTIFIED PT IN ROOM WHO IS IN AGREEMENT WITH DISCHARGE TO REHAB TODAY. CM CALLED ASHLIE ALMODOVAR BROTHER, , NOTIFIED OF PT'S DISCHARGE BACK TO [facility]. CM FAXED DISCHARGE INFORMATION TO [facility] VIA [employer] AT [phone]. NURSE REPORT TO BE CALLED TO [facility] AT [phone]. FACILITY VAN TO MAINTENANCE AND ENGINEERING MANAGER AT ABOUT 3:30PM TODAY. Assistant Project Engineer: Julian Lugo
--- NOTE | 2017-10-12 15:15 | NUR ---
Patient Name: JACQUELINE ALMODOVAR Encounter No: [id number] : 1970 Primary Insurance: [employer] Anticipated DC Date: 10-12-2017 Planned Disposition: [facility] Facility External Planned Provider: [facility] MEDICARE REHAB BED DCP follow-up note: CM RECEIVED MESSAGE FROM HERIBERTO OF [facility], INSURANCE AUTHORIZATION RECEIVED FOR REHAB SERVICES. CM NOTIFIED FLOW CORRDINATOR AND DR ESPITIA'S NURSE REBECCA. CM RECEIVED DISCHARGE ORDER, NOTIFIED PT IN ROOM WHO IS IN AGREEMENT WITH DISCHARGE TO REHAB TODAY. CM CALLED ASHLIE ALMODOVAR BROTHER, , NOTIFIED OF PT'S DISCHARGE BACK TO [facility]. CM FAXED DISCHARGE INFORMATION TO [facility] VIA [employer] AT [phone]. NURSE REPORT TO BE CALLED TO [facility] AT [phone]. FACILITY VAN TO DIRECTOR OF CARDIAC REHABILITATION AT ABOUT 3:30PM TODAY. Silk Weaver: Julian Lugo
--- NOTE | 2017-10-12 15:43 | NUR ---
D/C INSTRUCTIONS EXPLAINED TO PT. D/C PAPERWORK SIGNED BY PT AND PLACED IN CHART. JUANA HALL REMOVED PTS IV TO LEFT FOREARM WITH CATH TIP INTACT. COVERED SITE WITH 2X2 GAUZE PADS AND SECURED WITH TAPE. PTS BELONGINS GATHERED TOGETHER AND PLACED IN BAG. WILL CALL REPORT TO [facility]. WILL CONTINUE TO MONITOR AND AWAIT [facility] TO TRANSFER PT.
--- NOTE | 2017-10-12 15:56 | NUR ---
CALLED REPORT AND SPOKE WITH JUANA MADRIGAL AT [facility] AND GAVE REPORT. GETTING PT DRESSED NOW.
--- NOTE | 2017-10-12 16:47 | NUR ---
PT D/C VIA WHEELCHAIR WITH [facility]FF [facility].
== END 2017-10-12 16:48 | DRG 690 ==
LOC: D.ER 19:05 → D.M2 20:48
PROVIDERS: Emergency Medicine; ADMIT Legal Medicine
DX: N10 Acute pyelonephritis (principal); B19.10 Unspecified viral hepatitis B without hepatic coma; B96.20 Unspecified Escherichia coli [E. coli] as the cause of diseases classified elsewhere; B96.1 Klebsiella pneumoniae [K. pneumoniae] as the cause of diseases classified elsewhere; Z16.24 Resistance to multiple antibiotics; G89.29 Other chronic pain; Z72.0 Tobacco use; I10 Essential (primary) hypertension; D64.9 Anemia, unspecified; E11.40 Type 2 diabetes mellitus with diabetic neuropathy, unspecified

== ENCOUNTER 2017-11-12 08:57 | Inpatient (IN) | payer MEDICARE ==
[~2017-11-12] VITALS: Ht 175.3 cm; Wt 142.0 kg
--- NOTE | ~2017-11-12 | OP ---
PATIENT NAME: JACQUELINE ALMODOVAR MEDICAL RECORD: [id number] :[birth year] LOCATION:D.MS [id number] ADMISSION DATE:11/12/17 SURGEON: ELSY KRAUSE MD DATE OF OPERATION: 11/12/2017 PREOPERATIVE DIAGNOSES: 1. 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 2. Severe morbid obesity. 3. Substantially altered surgical anatomy. PROCEDURE: Revision left total hip arthroplasty with removal of previously placed cement spacer and intramedullary mindy. SURGEON: Elsy Krause MD ANESTHESIA: General. INTRAOPERATIVE COMPLICATIONS: Essentially no complications; however, the case was made substantially difficult as this is roughly the eighth hip surgery she has had. Furthermore, the hip cement spacer had dislocated and created a yobani-acetabulum making the old acetabulum very difficult to get to and re-ream and the patient had very minimal posterior wall remaining. IMPLANTS USED: Hima multi-hole trauma titanium cup size 56. The Anabaptist modular revision hip system was used as well. OPERATIVE SUMMARY IN DETAIL: After obtaining the appropriate preoperative orthopedic surgery consent as well as anesthetic consultation, evaluation and clearance, the patient was brought to the operating room and placed on the operating table in supine position. After general laryngeal mask was administered, she was placed in a right lateral decubitus position. All pressure points were well padded. She was held firmly to the operating table with the use of double vacuum pack suction and belting system given the patient's morbid obesity. She was also lightly strapped to the table with a sheath. After the hip was prepped and draped in routine sterile fashion, an incision was made along the entire length of her previous incision. The subcutaneous tissue underneath it was extremely difficult to broach; however, dissection was carried down all the way to the lateral aspect of the femur to the vastus lateralis as well as the IT band. Finally, the previously placed cement spacer was exposed and removed as was the intramedullary mindy. At this point, a metal object was used to define and identify the patient's true acetabulum as the patient had a yobani-acetabulum from the cement spacer above it with no placed mount a cup. Once the reamer was thought to be in the appropriate position, intraoperative radiographs were taken with the reamer in place that showed the real acetabulum had been located. Serial and sequential reaming were done to a size 54. Size [address] Multiple screws were placed to help stabilize the cup. Polyethylene was put into place and attention was then turned to the femur. Serial and sequential reaming and broaching were done to the femur. A size 170 mm fully porous coated stem was used in conjunction with a standard #21 proximal Anabaptist modular system. Hip was reduced. With trials in place, thought to be the appropriate. Final components were then put in place and the femoral head was tamped onto the Beltrán taper and the hip was reduced. At this point, copious irrigation followed. Approximately 1 hour long closure of this very deep wound. Final skin closure was achieved with skin lauren. A suction wound VAC was placed over the incision given the OPERATIVE REPORT [id number] JACQUELINE ALMODOVAR patient's substantial history. Having completed this and after final radiographs were taken, the patient was awakened and taken to recovery room in stable good condition. Note, cultures were taken intraoperatively, Gram stain was negative. TRANSINT:[id number] Voice Confirmation ID: [id number] DOCUMENT ID: [id number] JIMI EL, ELSY WELLS at 1920 CC: [id number] DICTATION DATE: 11/19/17 1331 BENDER MACHINE: 11/19/17 1733 DIS IN 11/17/17 [facility] [address] [place] [address]
[~2017-11-12 08:57] MED LIST changes: +LEVAQUIN750 MG PO; +LISINOPRIL10 MG PO; +LOVENOX40 MG/0.4 SC
[2017-11-12 10:57] LABS: APTT 32.3 SECONDS (22.8-39.4); INR 1.08 (0.85-1.17); PROTIME 13.6 SECONDS (11.6-15.0)
[2017-11-12 11:04] LABS: BASOPHILS 0.1 % (0-2); EOSINOPHILS 1.4 % (0-7); HEMOGLOBIN 11.5 g/dL (12-16); IMMATURE GRANULOCYTES 0.1 % (0-5); LYMPHOCYTES 17.3 % (15-50); MCH 30.6 pg (26.0-34.0); MCHC 31.9 g/dL (31.0-37.0); MCV 95.7 fL (80.0-100.0); MEAN PLATELET VOLUME 12.5 fL (7.4-10.4); MONOCYTES 5.5 % (2-11); NEUTROPHILS 75.6 % (40-80); PLATELET COUNT 210 10x3/uL (130-400); RBC 3.76 10x6/uL (4.00-5.40); RDW 13.9 % (11.5-14.5); WBC 7.2 10x3/uL (4.8-10.8)
[2017-11-12 11:10] LABS: CALCIUM 8.9 mg/dL (8.5-10.1); CARBON DIOXIDE 31.5 mmol/L (21.0-32.0); POTASSIUM - SERUM 3.5 mmol/L (3.5-5.1)
[2017-11-12 11:39] LABS: HCG SERUM NEGATIVE (NEGATIVE)
[2017-11-12 12:30] VITALS: BMI 46.3
[2017-11-12 13:23] LABS: APPEARANCE CLOUDY (CLEAR); BILIRUBIN NEGATIVE (NEGATIVE); COLOR YELLOW (YELLOW); GLUCOSE NEGATIVE (NEGATIVE); KETONE NEGATIVE (NEGATIVE); NITRITE POSITIVE (NEGATIVE); PROTEIN TRACE mg/dL (NEGATIVE); UROBILINOGEN NORMAL (NORMAL)
[2017-11-12 13:24] LABS: BACTERIA MANY /hpf (NONE SEEN); MUCUS <1+ /lpf (NONE SEEN); RED CELLS - URINE 0-5 /hpf (0-5); WHITE CELLS - URINE >50 /hpf (0-5)
[2017-11-12 17:47] VITALS: BP 102/58
[2017-11-12 19:00] VITALS: BP 118/72
[2017-11-12 19:40] VITALS: BP 120/64
[2017-11-12 20:10] VITALS: Ht 175.3 cm; Wt 142.0 kg
[2017-11-12 22:53] VITALS: BP 120/64
[2017-11-13 04:00] VITALS: BP 100/51
[2017-11-13 05:10] VITALS: BP 100/51
[2017-11-13 05:17] LABS: HEMATOCRIT 29.9 % (36.0-48.0); HEMOGLOBIN 9.8 g/dL (12-16); MCH 30.5 pg (26.0-34.0); MCHC 32.8 g/dL (31.0-37.0); MCV 93.1 fL (80.0-100.0); RBC 3.21 10x6/uL (4.00-5.40); RDW 14.5 % (11.5-14.5); WBC 10.3 10x3/uL (4.8-10.8)
[2017-11-13 08:45] VITALS: BP 117/67
[2017-11-13 12:16] VITALS: BP 106/57
[2017-11-13 16:34] VITALS: BP 119/62
[2017-11-14 02:00] VITALS: BP 112/63
[2017-11-14 04:00] VITALS: BP 118/70
[2017-11-14 06:18] LABS: HEMATOCRIT 28.7 % (36.0-48.0); HEMOGLOBIN 9.3 g/dL (12-16); MCH 30.2 pg (26.0-34.0); MCHC 32.4 g/dL (31.0-37.0); MCV 93.2 fL (80.0-100.0); MEAN PLATELET VOLUME 12.1 fL (7.4-10.4); RBC 3.08 10x6/uL (4.00-5.40); RDW 14.4 % (11.5-14.5)
[2017-11-14 06:30] LABS: WBC 7.6 10x3/uL (4.8-10.8)
[2017-11-14 10:57] VITALS: BP 139/81
[2017-11-14 17:18] VITALS: BP 105/62
[2017-11-14 20:00] VITALS: BP 109/57
[2017-11-15] VITALS: BP 110/60
[2017-11-15 05:00] VITALS: BP 103/59
[2017-11-15 09:38] VITALS: BP 110/53
[2017-11-15 13:45] VITALS: BP 98/55
[2017-11-15 17:18] VITALS: BP 98/59
[2017-11-15 22:28] VITALS: BP 124/70
[2017-11-16 02:16] VITALS: BP 130/71
[2017-11-16 04:00] VITALS: BP 114/63
[2017-11-16 08:46] LABS: HEMATOCRIT 29.2 % (36.0-48.0); HEMOGLOBIN 9.4 g/dL (12-16); MCH 30.1 pg (26.0-34.0); MCHC 32.2 g/dL (31.0-37.0); MCV 93.6 fL (80.0-100.0); MEAN PLATELET VOLUME 11.8 fL (7.4-10.4); RBC 3.12 10x6/uL (4.00-5.40); RDW 14.1 % (11.5-14.5); WBC 7.4 10x3/uL (4.8-10.8)
[2017-11-16 08:57] VITALS: BP 108/68
[2017-11-16 09:03] LABS: CALCIUM 8.5 mg/dL (8.5-10.1); CARBON DIOXIDE 28.4 mmol/L (21.0-32.0); CREATININE - SERUM 0.9 mg/dL (0.6-1.3); POTASSIUM - SERUM 3.4 mmol/L (3.5-5.1)
[2017-11-16 12:56] VITALS: BP 110/65
[2017-11-16 16:45] VITALS: BP 114/64
[2017-11-16 20:00] VITALS: BP 108/63
[2017-11-17] VITALS: BP 110/64
[2017-11-17 06:31] LABS: HEMATOCRIT 29.9 % (36.0-48.0); HEMOGLOBIN 9.5 g/dL (12-16); MCH 29.9 pg (26.0-34.0); MCHC 31.8 g/dL (31.0-37.0); MEAN PLATELET VOLUME 12.5 fL (7.4-10.4); RBC 3.18 10x6/uL (4.00-5.40); RDW 14.1 % (11.5-14.5); WBC 7.4 10x3/uL (4.8-10.8)
[2017-11-17 06:58] LABS: ANION GAP 10.3 mmol/L (8-16); CALCIUM 8.7 mg/dL (8.5-10.1); CREATININE - SERUM 0.9 mg/dL (0.6-1.3); POTASSIUM - SERUM 3.3 mmol/L (3.5-5.1)
[2017-11-17 08:34] VITALS: BP 165/78
[2017-11-17 12:05] VITALS: BP 130/74
[2017-11-17] MEDS ORDERED: ELIQUIS2.5 MG PO (14:00)
[2017-11-17] MEDS ORDERED: MACROBID100 MG PO (14:04)
[2017-11-17] MEDS ORDERED: KEFLEX500 MG PO (14:04)
[2017-11-17 16:17] VITALS: BP 133/68
== END 2017-11-17 17:00 | DRG 467 ==
LOC: D.SDCHOLD 08:57 → D.MS 08:57 → D.SDCHOLD 11:45 → D.MS 17:46
PROVIDERS: Anesthesiology; Orthopaedic Surgery
PROC: 0SPB08Z Removal of Spacer from Left Hip Joint, Open Approach (ICD-10-PCS; 2017-11-12)
PROC: 0SRB0JZ Replacement of Left Hip Joint with Synthetic Substitute, Open Approach (ICD-10-PCS; principal; 2017-11-12 11:45)
DX: Z47.32 Aftercare following explantation of hip joint prosthesis (principal); D62 Acute posthemorrhagic anemia; Z68.42 Body mass index [BMI] 45.0-49.9, adult; E11.9 Type 2 diabetes mellitus without complications; F17.200 Nicotine dependence, unspecified, uncomplicated; K21.9 Gastro-esophageal reflux disease without esophagitis; E66.01 Morbid (severe) obesity due to excess calories

== ENCOUNTER 2017-11-21 21:02 | Emergency (ER) | payer MEDICARE ==
[~2017-11-21 21:02] MED LIST changes: +MACROBID100 MG PO
[2017-11-21 22:47] LABS: BASOPHILS 0.2 % (0-2); EOSINOPHILS 1.6 % (0-7); HEMATOCRIT 30.6 % (36.0-48.0); HEMOGLOBIN 9.7 g/dL (12-16); IMMATURE GRANULOCYTES 0.3 % (0-5); LYMPHOCYTES 20.4 % (15-50); MCHC 31.7 g/dL (31.0-37.0); MCV 94.7 fL (80.0-100.0); MEAN PLATELET VOLUME 11.3 fL (7.4-10.4); MONOCYTES 5.8 % (2-11); NEUTROPHILS 71.7 % (40-80); RBC 3.23 10x6/uL (4.00-5.40); RDW 14.5 % (11.5-14.5)
[2017-11-21 22:54] LABS: INR 1.09 (0.85-1.17); PLATELET COUNT 265 10x3/uL (130-400); PROTIME 13.7 SECONDS (11.6-15.0)
[2017-11-21 23:00] LABS: ANION GAP 10.8 mmol/L (8-16); BILIRUBIN - TOTAL 0.2 mg/dL (0.2-1.3); CALCIUM 8.4 mg/dL (8.5-10.1); CARBON DIOXIDE 28.4 mmol/L (21.0-32.0); POTASSIUM - SERUM 3.2 mmol/L (3.5-5.1)
== END 2017-11-22 01:47 | disposition home or self-care (01) ==
LOC: D.ER 21:02
PROVIDERS: Nurse Practitioner Family
DX: L76.82 Other postprocedural complications of skin and subcutaneous tissue (principal); Z98.890 Other specified postprocedural states

== ENCOUNTER 2018-03-09 07:18 | Inpatient (IN) | payer MEDICARE ==
[~2018-03-09] VITALS: Ht 175.3 cm; Wt 131.1 kg
[2018-03-09] VITALS (40 sets, daily range): BP systolic 72–121; BP diastolic 46–97; Ht 175.3 cm; Wt 131.1 kg
[2018-03-09 07:52] LABS: BASOPHILS 0 % (0-2); EOSINOPHILS 0 % (0-7); HEMATOCRIT 27.3 % (36.0-48.0); IMMATURE GRANULOCYTES 0.3 % (0-5); LYMPHOCYTES 10.9 % (15-50); MCH 29.5 pg (26.0-34.0); MCV 89.5 fL (80.0-100.0); MEAN PLATELET VOLUME 11.6 fL (7.4-10.4); MONOCYTES 9.8 % (2-11); PLATELET COUNT 163 10x3/uL (130-400); RBC 3.05 10x6/uL (4.00-5.40); RDW 14.8 % (11.5-14.5); WBC 11.7 10x3/uL (4.8-10.8)
[2018-03-09 08:10] LABS: BILIRUBIN - TOTAL 0.2 mg/dL (0.2-1.3); CALCIUM 7.5 mg/dL (8.5-10.1); CARBON DIOXIDE 14.6 mmol/L (21.0-32.0); POTASSIUM - SERUM 5.6 mmol/L (3.5-5.1)
[2018-03-09 08:12] LABS: CREATININE - SERUM 6.7 mg/dL (0.6-1.3)
[2018-03-09 08:26] LABS: UDS - AMPHET NEGATIVE QUAL (NEGATIVE); UDS - BARB NEGATIVE QUAL (NEGATIVE); UDS - BENZO NEGATIVE QUAL (NEGATIVE); UDS - COCAINE NEGATIVE QUAL (NEGATIVE); UDS - OPIATE POSITIVE QUAL (NEGATIVE); UDS - PCP NEGATIVE QUAL (NEGATIVE); UDS - THC NEGATIVE QUAL (NEGATIVE)
[2018-03-09 10:27] LABS: APPEARANCE CLOUDY (CLEAR); COLOR YELLOW (YELLOW); SPECIFIC GRAVITY 1.015 (1.005-1.020)
[2018-03-09 10:28] LABS: BILIRUBIN NEGATIVE (NEGATIVE); GLUCOSE NEGATIVE (NEGATIVE); KETONE NEGATIVE (NEGATIVE); NITRITE NEGATIVE (NEGATIVE); PROTEIN 3+ mg/dL (NEGATIVE); UROBILINOGEN NORMAL (NORMAL)
[2018-03-09 10:29] LABS: BACTERIA MANY /hpf (NONE SEEN); EPITHELIAL CELLS 0-5 /hpf (0-5); RED CELLS - URINE 0-5 /hpf (0-5); WHITE CELLS - URINE 25-50 /hpf (0-5)
[2018-03-09] MEDS ORDERED: ZANAFLEX4 MG PO (17:11)
[2018-03-09] MEDS ORDERED: NYSTATIN15 GM TOPICAL (17:13)
[2018-03-09] MEDS ORDERED: IBUPROFEN400 MG PO (17:14)
[2018-03-09] MEDS ORDERED: BACTRIM DS TABL1 TAB PO (17:16)
[2018-03-10] VITALS (76 sets, daily range): BP systolic 75–148; BP diastolic 21–550
[2018-03-10 04:28] LABS: BASOPHILS 0.1 % (0-2); EOSINOPHILS 0.2 % (0-7); HEMATOCRIT 24.9 % (36.0-48.0); HEMOGLOBIN 8.3 g/dL (12-16); IMMATURE GRANULOCYTES 0.4 % (0-5); LYMPHOCYTES 19.1 % (15-50); MCH 29.3 pg (26.0-34.0); MCHC 33.3 g/dL (31.0-37.0); MEAN PLATELET VOLUME 11.2 fL (7.4-10.4); MONOCYTES 10.6 % (2-11); NEUTROPHILS 69.6 % (40-80); PLATELET COUNT 203 10x3/uL (130-400); RBC 2.83 10x6/uL (4.00-5.40); RDW 14.9 % (11.5-14.5); WBC 12.9 10x3/uL (4.8-10.8)
[2018-03-10 05:06] LABS: ALBUMIN 2.8 g/dL (3.4-5.0); ALKALINE PHOSPHATASE 130 U/L (46-116); ALT (SGPT) 20 U/L (10-68); CALC OSMOLALITY 271 mosm/kg (275-300); CALCIUM 7.6 mg/dL (8.5-10.1); CARBON DIOXIDE 16.3 mmol/L (21.0-32.0); CHLORIDE - SERUM 96 mmol/L (98-107); CREATINE KINASE 322 UL (21-215); CREATININE - SERUM 6.4 mg/dL (0.6-1.3); GLUCOSE 108 mg/dL (74-106); PHOSPHOROUS 5.6 mg/dL (2.5-4.9); PROTEIN - SERUM 6.7 g/dL (6.4-8.2); SODIUM 125 mmol/L (136-145); UREA NITROGEN 65 mg/dL (7-18); eGFR NON AFRICAN AMERICAN 7 mL/min (90-120)
[2018-03-10 05:07] LABS: CKMB 5.6 U/L (0.0-3.6)
[2018-03-10 07:41] LABS: % SATURATION 17 % (15-55); IRON 29 ug/dl (35-150); TOTAL IRON BIND CAPACITY 163 ug/dl (260-445); UNSAT IRON BIND CAPACITY 134 ug/dl (150-375)
[2018-03-11] VITALS (22 sets, daily range): BP systolic 103–151; BP diastolic 54–82
[2018-03-11 08:12] LABS: BASOPHILS 0.2 % (0-2); EOSINOPHILS 0.5 % (0-7); HEMATOCRIT 23.4 % (36.0-48.0); HEMOGLOBIN 8.1 g/dL (12-16); IMMATURE GRANULOCYTES 0.2 % (0-5); LYMPHOCYTES 25.2 % (15-50); MCH 29.6 pg (26.0-34.0); MCHC 34.6 g/dL (31.0-37.0); MEAN PLATELET VOLUME 10.9 fL (7.4-10.4); NEUTROPHILS 63.9 % (40-80); RBC 2.74 10x6/uL (4.00-5.40); RDW 15.1 % (11.5-14.5)
[2018-03-11 08:17] LABS: WBC 5.9 10x3/uL (4.8-10.8)
[2018-03-11 08:18] LABS: MCV 85.4 fL (80.0-100.0); PLATELET COUNT 156 10x3/uL (130-400)
[2018-03-11 08:56] LABS: ALBUMIN 2.6 g/dL (3.4-5.0); BILIRUBIN - TOTAL 0.3 mg/dL (0.2-1.3); CALCIUM 8.2 mg/dL (8.5-10.1); POTASSIUM - SERUM 4.5 mmol/L (3.5-5.1); PROTEIN - SERUM 6.5 g/dL (6.4-8.2); VANCOMYCIN - RANDOM 0.1 ug/mL (10.0-20.0)
[2018-03-11 08:57] LABS: ANION GAP 12.3 mmol/L (8-16); CARBON DIOXIDE 26.2 mmol/L (21.0-32.0); CREATININE - SERUM 2.7 mg/dL (0.6-1.3)
[2018-03-12] VITALS (7 sets, daily range): BP systolic 146–188; BP diastolic 65–93
[2018-03-12 04:48] LABS: BASOPHILS 0.2 % (0-2); EOSINOPHILS 1.1 % (0-7); HEMATOCRIT 25.7 % (36.0-48.0); HEMOGLOBIN 8.7 g/dL (12-16); IMMATURE GRANULOCYTES 0.2 % (0-5); LYMPHOCYTES 27.7 % (15-50); MCH 29.5 pg (26.0-34.0); MCHC 33.9 g/dL (31.0-37.0); MCV 87.1 fL (80.0-100.0); NEUTROPHILS 60.8 % (40-80); PLATELET COUNT 183 10x3/uL (130-400); RBC 2.95 10x6/uL (4.00-5.40); RDW 15.3 % (11.5-14.5); WBC 6.1 10x3/uL (4.8-10.8)
[2018-03-12 05:00] LABS: ANION GAP 12.8 mmol/L (8-16); CALCIUM 8.4 mg/dL (8.5-10.1); CARBON DIOXIDE 27.4 mmol/L (21.0-32.0)
[2018-03-12 05:13] LABS: CREATININE - SERUM 1.3 mg/dL (0.6-1.3); POTASSIUM - SERUM 5.2 mmol/L (3.5-5.1)
[2018-03-12 08:21] LABS: FOLATE (FOLIC ACID) - SERUM 4.8 ng/mL (>3.0)
[2018-03-13 03:00] VITALS: BP 159/82
[2018-03-13 04:21] LABS: BASOPHILS 0.2 % (0-2); EOSINOPHILS 1.2 % (0-7); HEMATOCRIT 27.4 % (36.0-48.0); HEMOGLOBIN 9.1 g/dL (12-16); IMMATURE GRANULOCYTES 0.2 % (0-5); LYMPHOCYTES 24.7 % (15-50); MCH 29.4 pg (26.0-34.0); MCHC 33.2 g/dL (31.0-37.0); MCV 88.4 fL (80.0-100.0); MEAN PLATELET VOLUME 11.3 fL (7.4-10.4); MONOCYTES 10.5 % (2-11); NEUTROPHILS 63.2 % (40-80); PLATELET COUNT 212 10x3/uL (130-400); RDW 15.3 % (11.5-14.5); WBC 6.7 10x3/uL (4.8-10.8)
[2018-03-13 04:39] LABS: ANION GAP 13.7 mmol/L (8-16); CARBON DIOXIDE 25.1 mmol/L (21.0-32.0); POTASSIUM - SERUM 4.8 mmol/L (3.5-5.1)
[2018-03-13 07:00] VITALS: BP 164/80
[2018-03-13 10:00] VITALS: BP 184/96
[2018-03-13 13:32] VITALS: BP 154/70
[2018-03-13 18:59] VITALS: BP 163/75
[2018-03-13 20:00] VITALS: BP 159/87
[2018-03-14 06:07] VITALS: BP 174/79
[2018-03-14 06:17] LABS: BASOPHILS 0.2 % (0-2); EOSINOPHILS 1.1 % (0-7); HEMATOCRIT 27.3 % (36.0-48.0); IMMATURE GRANULOCYTES 0.2 % (0-5); LYMPHOCYTES 23.6 % (15-50); MCH 29.6 pg (26.0-34.0); MCV 89.8 fL (80.0-100.0); MEAN PLATELET VOLUME 10.5 fL (7.4-10.4); MONOCYTES 9.6 % (2-11); NEUTROPHILS 65.3 % (40-80); PLATELET COUNT 202 10x3/uL (130-400); RBC 3.04 10x6/uL (4.00-5.40); RDW 15.3 % (11.5-14.5); WBC 6.4 10x3/uL (4.8-10.8)
[2018-03-14 06:45] LABS: ANION GAP 12.3 mmol/L (8-16); CALCIUM 8.7 mg/dL (8.5-10.1); CARBON DIOXIDE 24.2 mmol/L (21.0-32.0); POTASSIUM - SERUM 4.5 mmol/L (3.5-5.1)
[2018-03-14 06:55] LABS: PHOSPHOROUS 2.8 mg/dL (2.5-4.9)
[2018-03-14 08:59] VITALS: BP 152/76
[2018-03-14 12:48] VITALS: BP 172/86
[2018-03-14 16:15] VITALS: BP 205/88
[2018-03-14 19:56] VITALS: BP 165/82
[2018-03-14 20:44] LABS: APPEARANCE HAZY (CLEAR); BILIRUBIN NEGATIVE (NEGATIVE); COLOR STRAW (YELLOW); GLUCOSE NEGATIVE (NEGATIVE); KETONE NEGATIVE (NEGATIVE); NITRITE NEGATIVE (NEGATIVE); PROTEIN TRACE mg/dL (NEGATIVE); SPECIFIC GRAVITY 1.005 (1.005-1.020); UROBILINOGEN NORMAL (NORMAL); WHITE CELLS - URINE 0-5 /hpf (0-5)
[2018-03-14 20:45] LABS: BACTERIA FEW /hpf (NONE SEEN); RED CELLS - URINE 0-5 /hpf (0-5); YEAST >1+ WITH HYPHAE /hpf (NONE SEEN)
[2018-03-14 20:46] LABS: EPITHELIAL CELLS OCC /hpf (0-5)
[2018-03-15 04:30] VITALS: BP 161/74
[2018-03-15 06:25] LABS: BASOPHILS 0.1 % (0-2); EOSINOPHILS 1.4 % (0-7); HEMATOCRIT 28.2 % (36.0-48.0); HEMOGLOBIN 9.1 g/dL (12-16); IMMATURE GRANULOCYTES 0.3 % (0-5); LYMPHOCYTES 20.7 % (15-50); MCH 29.2 pg (26.0-34.0); MCHC 32.3 g/dL (31.0-37.0); MCV 90.4 fL (80.0-100.0); MEAN PLATELET VOLUME 10.6 fL (7.4-10.4); MONOCYTES 8.2 % (2-11); NEUTROPHILS 69.3 % (40-80); PLATELET COUNT 190 10x3/uL (130-400); RBC 3.12 10x6/uL (4.00-5.40); RDW 15.5 % (11.5-14.5); WBC 7.8 10x3/uL (4.8-10.8)
[2018-03-15 06:46] LABS: CALCIUM 8.7 mg/dL (8.5-10.1); CARBON DIOXIDE 24.2 mmol/L (21.0-32.0); CREATININE - SERUM 0.9 mg/dL (0.6-1.3); POTASSIUM - SERUM 4.2 mmol/L (3.5-5.1)
[2018-03-15 09:52] VITALS: BP 180/82
[2018-03-15 18:09] VITALS: BP 193/87
[2018-03-15 21:12] VITALS: BP 186/90
[2018-03-16 04:01] VITALS: BP 191/93
[2018-03-16 07:11] LABS: BASOPHILS 0.1 % (0-2); EOSINOPHILS 0.9 % (0-7); HEMATOCRIT 30.9 % (36.0-48.0); HEMOGLOBIN 10.1 g/dL (12-16); IMMATURE GRANULOCYTES 0.2 % (0-5); LYMPHOCYTES 16.5 % (15-50); MCH 29.4 pg (26.0-34.0); MCHC 32.7 g/dL (31.0-37.0); MCV 90.1 fL (80.0-100.0); MEAN PLATELET VOLUME 11.1 fL (7.4-10.4); MONOCYTES 4.9 % (2-11); NEUTROPHILS 77.4 % (40-80); PLATELET COUNT 222 10x3/uL (130-400); RBC 3.43 10x6/uL (4.00-5.40); RDW 15.8 % (11.5-14.5); WBC 9.6 10x3/uL (4.8-10.8)
[2018-03-16 07:28] LABS: CALC OSMOLALITY 273 mosm/kg (275-300); CALCIUM 9.1 mg/dL (8.5-10.1); CARBON DIOXIDE 21.9 mmol/L (21.0-32.0); CHLORIDE - SERUM 102 mmol/L (98-107); CREATININE - SERUM 0.8 mg/dL (0.6-1.3); GENTAMICIN - RANDOM 0.9 ug/mL (0.5-2.0); GLUCOSE 119 mg/dL (74-106); PHOSPHOROUS 3.3 mg/dL (2.5-4.9); POTASSIUM - SERUM 4.3 mmol/L (3.5-5.1); SODIUM 137 mmol/L (136-145); UREA NITROGEN 9 mg/dL (7-18); eGFR NON AFRICAN AMERICAN 81 mL/min (90-120)
[2018-03-16 08:31] VITALS: BP 205/94
[2018-03-16 12:32] VITALS: BP 139/85
[2018-03-16 16:13] VITALS: BP 164/84
[2018-03-16 22:35] VITALS: BP 145/88
[2018-03-17 07:10] VITALS: BP 184/89
[2018-03-17 08:25] VITALS: BP 190/85
[2018-03-17 12:11] VITALS: BP 180/84
[2018-03-17 16:42] VITALS: BP 168/82
[2018-03-17 20:43] VITALS: BP 169/90
[2018-03-18 00:10] VITALS: BP 164/83
[2018-03-18 05:12] VITALS: BP 179/88
[2018-03-18 09:49] VITALS: BP 172/90
== END 2018-03-18 14:17 | disposition short-term general hospital (02) | DRG 682 ==
LOC: D.ER 07:18 → D.EDHOLD 10:48 → D.ICU 10:48 → D.MS 10:48 → D.ICU 14:10 → D.MS 03-13 11:07
PROVIDERS: Emergency Medicine; Family Medicine; Internal Medicine Nephrology; Student in an Organized Health Care Education/Training Program
DX: N17.9 Acute kidney failure, unspecified (principal); I60.9 Nontraumatic subarachnoid hemorrhage, unspecified; N39.0 Urinary tract infection, site not specified; S73.005A Unspecified dislocation of left hip, initial encounter; E87.2 Acidosis; E87.1 Hypo-osmolality and hyponatremia; Z68.42 Body mass index [BMI] 45.0-49.9, adult; B96.1 Klebsiella pneumoniae [K. pneumoniae] as the cause of diseases classified elsewhere; I95.9 Hypotension, unspecified; D72.829 Elevated white blood cell count, unspecified; D64.9 Anemia, unspecified; K21.9 Gastro-esophageal reflux disease without esophagitis; E66.01 Morbid (severe) obesity due to excess calories; N12 Tubulo-interstitial nephritis, not specified as acute or chronic; Z16.24 Resistance to multiple antibiotics; E11.9 Type 2 diabetes mellitus without complications; F17.200 Nicotine dependence, unspecified, uncomplicated; I10 Essential (primary) hypertension; R53.83 Other fatigue; E87.5 Hyperkalemia; K59.00 Constipation, unspecified; N30.80 Other cystitis without hematuria

== ENCOUNTER 2018-03-25 12:58 | Emergency (ER) | payer MEDICARE ==
[2018-03-09 15:00] VITALS: BMI 46.6
[~2018-03-25 12:58] MED LIST changes: +BACTRIM DS TABL1 TAB PO; +IBUPROFEN400 MG PO; +NYSTATIN15 GM TOPICAL; +ZANAFLEX4 MG PO
[2018-03-25 14:03] LABS: BASOPHILS 0.2 % (0-2); EOSINOPHILS 0.7 % (0-7); HEMATOCRIT 36.2 % (36.0-48.0); HEMOGLOBIN 12.3 g/dL (12-16); IMMATURE GRANULOCYTES 0.2 % (0-5); LYMPHOCYTES 30.7 % (15-50); MCH 31.1 pg (26.0-34.0); MCV 91.6 fL (80.0-100.0); MEAN PLATELET VOLUME 12.1 fL (7.4-10.4); MONOCYTES 8.1 % (2-11); NEUTROPHILS 60.1 % (40-80); PLATELET COUNT 213 10x3/uL (130-400); RBC 3.95 10x6/uL (4.00-5.40); RDW 17.1 % (11.5-14.5); WBC 9.7 10x3/uL (4.8-10.8)
[2018-03-25 14:18] LABS: ALBUMIN 3.9 g/dL (3.4-5.0); ANION GAP 15.8 mmol/L (8-16); BILIRUBIN - TOTAL 0.5 mg/dL (0.2-1.3); CALCIUM 9.1 mg/dL (8.5-10.1); CARBON DIOXIDE 21.1 mmol/L (21.0-32.0); CREATININE - SERUM 1.6 mg/dL (0.6-1.3); POTASSIUM - SERUM 3.9 mmol/L (3.5-5.1); PROTEIN - SERUM 8.3 g/dL (6.4-8.2)
[2018-03-25 14:53] LABS: APPEARANCE HAZY (CLEAR); COLOR YELLOW (YELLOW)
[2018-03-25 14:54] LABS: BILIRUBIN NEGATIVE (NEGATIVE); GLUCOSE NEGATIVE (NEGATIVE); KETONE NEGATIVE (NEGATIVE); NITRITE POSITIVE (NEGATIVE); PROTEIN NEGATIVE (NEGATIVE); UROBILINOGEN NORMAL (NORMAL)
[2018-03-25 14:55] LABS: BACTERIA MANY /hpf (NONE SEEN); WHITE CELLS - URINE >50 /hpf (0-5); YEAST >1+ WITH HYPHAE /hpf (NONE SEEN)
[2018-04-01 17:07] LABS: AEROBE ID Final report (())
== END 2018-03-25 16:52 | disposition other institution (70) ==
LOC: D.ER 12:58
PROVIDERS: Family Medicine
DX: I63.9 Cerebral infarction, unspecified (principal); G81.94 Hemiplegia, unspecified affecting left nondominant side; R47.81 Slurred speech; R13.10 Dysphagia, unspecified; N39.0 Urinary tract infection, site not specified

== ENCOUNTER 2018-12-12 04:31 | Inpatient (IN) | payer MEDICARE ==
[~2018-12-12] VITALS: Ht 175.3 cm; Wt 105.0 kg
[2018-12-12] VITALS (70 sets, daily range): BP systolic 11–111; BP diastolic 27–85; BMI 49.6
--- NOTE | 2018-12-12 04:49 | NUR ---
PT ARIVED VIA EMS NONRESPNSIVE WITH [facility]CS OF 7. BP 72/42 ON ARRIVAL. 0442 20MG OF ETOMIDATE GIVEN IVP WHEN DR. TELLO DECIDED TO INTUBATE. 18G SITED TO RIGHT AC. 16 FR QUINONES CATH PLACED PT INTUBATED WITH 7.5 et TUBE, AT 24CM AT LIP. LISTENED FOR TUBE PLACEMENT AND XRAY OBTAINED.
[2018-12-12 05:41] LABS: APTT 37.8 SECONDS (22.8-39.4); INR 1.61 (0.85-1.17); PROTIME 18.6 SECONDS (11.6-15.0)
[2018-12-12 05:51] LABS: HEMATOCRIT 44.8 % (36.0-48.0); HEMOGLOBIN 14.5 g/dL (12-16); LYMPHOCYTES 9.8 % (15-50); MCH 30.9 pg (26.0-34.0); MCHC 32.4 g/dL (31.0-37.0); MCV 95.5 fL (80.0-100.0); MEAN PLATELET VOLUME 12.7 fL (7.4-10.4); PLATELET COUNT 196 10x3/uL (130-400); RBC 4.69 10x6/uL (4.00-5.40); WBC 6.3 10x3/uL (4.8-10.8)
[2018-12-12 05:54] LABS: ALBUMIN 2.4 g/dL (3.4-5.0); ALKALINE PHOSPHATASE 79 U/L (46-116); ALT (SGPT) 19 U/L (10-68); BILIRUBIN - TOTAL 0.82 mg/dL (0.2-1.3); CALC OSMOLALITY 282 mosm/kg (275-300); CALCIUM 7.9 mg/dL (8.5-10.1); CARBON DIOXIDE 16.7 mmol/L (21.0-32.0); CHLORIDE - SERUM 105 mmol/L (98-107); CKMB 0.2 U/L (0.0-3.6); CREATINE KINASE 89 UL (21-215); GLUCOSE 115 mg/dL (74-106); POTASSIUM - SERUM 5.4 mmol/L (3.5-5.1); PROTEIN - SERUM 6.4 g/dL (6.4-8.2); SODIUM 139 mmol/L (136-145); TROPONIN-I 0.034 ng/mL (0.000-0.060); UREA NITROGEN 23 mg/dL (7-18); eGFR NON AFRICAN AMERICAN 28 mL/min (90-120)
[2018-12-12 06:17] LABS: APPEARANCE CLOUDY (CLEAR); COLOR YELLOW (YELLOW)
[2018-12-12 06:18] LABS: BILIRUBIN NEGATIVE (NEGATIVE); GLUCOSE NEGATIVE (NEGATIVE); KETONE NEGATIVE (NEGATIVE); NITRITE POSITIVE (NEGATIVE); PROTEIN TRACE mg/dL (NEGATIVE); SPECIFIC GRAVITY 1.015 (1.005-1.020); UROBILINOGEN NORMAL (NORMAL)
[2018-12-12 06:21] LABS: AMORPHOUS SEDIMENT <1+ /lpf (NONE SEEN); BACTERIA MANY /hpf (NONE SEEN); EPITHELIAL CELLS 0-5 /hpf (0-5); RED CELLS - URINE OCC /hpf (0-5)
--- NOTE | 2018-12-12 07:12 | NUR ---
REPROT GIVEN TO FLOR FERRO
--- NOTE | 2018-12-12 09:00 | NUR ---
PT RECIEVED FROM ER. COMPLETE BB LINEN CHANGE ADM. LARGE LIQUID BM X2 NOTED. RECTAL TUBE ADM. LARGE AMOUNT OF COPIOUS ORAL SECRETIONS NOTED OGT ADM UPON 1 ATTEMPT VERIFIED VIA AUSCULTATION 50CC EMESIS NOTED. PT RESPONDS TO PAINFUL STIMULI EYES PERRLA 3MM BRISK. GAG REFLEX NOTED. HEART S1S2 HR 113 SINUS TACK. BP 78/56 LEVOPHED AT 30MCG/KG/MIN MILTON STARTED AT THIS TIME AT 10MCG/MIN. WILL REASSESS. VENT 50% O2 SAT 97% RR 18 REFER TO FLOW SHEET FOR FURTHER FINDINGS. RUL RML RACHEL CLEAR BILAT LOWER LOBES DEMINISHED. BS ACTIVE X4. QUINONES PATENT DARK BRANNON URINE NOTED. +1 PITTING EDEMA NOTED BILAT UPPER EXTREMETIES. +3 PITTING WEEPING EDEMA NOTED X2 BILAT LOWER EXTREMETIES. MULTIPLE SORES AND PRESSURE ULCERS NOTED, REFER TO FLOW SHEET FOR DETAILS. ORAL ENODTRACH CARE ADM. NO FAMILY IN WAITING AREA, OR IN ER AT THIS TIME. PHONE NUMBERS CALLED ON FACESHEET WITH NO ANSWER. WILL ATTEMPT AGAIN. NEEDS MET. WILL CONTINUE TO MONITOR
--- NOTE | 2018-12-12 10:59 | NUR ---
DR. RAND KNOWS ABOUT CONSULT. AT [facility].
--- NOTE | 2018-12-12 11:00 | NUR ---
LATE ENTRY. REASSESSMENT COMPLETED PER FLOW SHEET. NO ACUTE CHANGES.
--- NOTE | 2018-12-12 11:21 | MORECARE ---
CASE MANAGEMENT DISCHARGE SUMMARY PATIENT: JACQUELINE ALMODOVAR UNIT: [id number] ADM DATE: 12/12/18 AGE: 47 : [birth year] SEX: F ROOM/BED: D.2316 AUTHOR: AMINA POLK PHYSICIAN: REFERRING PHYSICIAN: RUSSELL GIRON MD DATE OF SERVICE: 12/12/18 Discharge Plan Patient Name: JACQUELINE ALMODOVAR Facility: [facility]:[place] : 1970 Planned Disposition: Nursing Home Facility Anticipated Discharge Date: 12/17/18 Discharge Date: Expected LOS: 5 Initial Reviewer: [email or web address] Initial Review Date: 12/12/2018 Generated: 12/12/18 12:21 pm Patient Name: JACQUELINE ALMODOVAR Page [phone] at 1121 All edits/amendments must be made on the electronic document DICTATION DATE: 12/12/18 112 BANDER AND CELLOPHANER HELPER MACHINE: RAHEEM 12/12/18 1121 RPT#: [id number] DC DATE: STATUS: ADM IN [facility] [address] [place] [address] END OF REPORT
--- NOTE | 2018-12-12 12:16 | MORECARE ---
CASE MANAGEMENT DISCHARGE SUMMARY PATIENT: JACQUELINE BUSTOS UNIT: [id number] ADM DATE: 12/12/18 AGE: 47 : 70 SEX: F ROOM/BED: D.2316 AUTHOR: JAM,DOC PHYSICIAN: REFERRING PHYSICIAN: RUSSELL GIRON MD DATE OF SERVICE: 12/12/18 Discharge Plan Patient Name: JACQUELINE BUSTOS Facility: [facility]:[place] : 1970 Planned Disposition: Half-Way Facility Anticipated Discharge Date: 12/17/18 Discharge Date: Expected LOS: 5 Initial Reviewer: [email or web address] Initial Review Date: 12/12/2018 Generated: 12/12/18 1:15 pm DCP- Discharge Planning Updated by [email or web address]: Courtney Betancur on 12/12/18 11:[address] Patient Name: JACQUELINE BUSTOS Admission Status: ER Accout number: [id number] Admission Date: 12-12-2018 : 1970 Admission Diagnosis: Attending: RUSSELL GIRON Current LOS: 1 Anticipated DC Date: 12-17-2018 Planned Disposition: Half-Way Facility Primary Insurance: [facility] MEDICARE SOLUTIONS Discharge Planning Comments: CM met with patient to complete initial dc planning assessment. Patient sedated on a vent and unable to answer questions. Patient is a resident at [facility]. CM spoke to Arlyn @ [facility] who stated if the patient stays 3 mn that they will bring her back under her medicare benefit for rehab is she needs it. She will require prior authorization as she has [facility] Medicare Solutions. CM will continue to follow and will assist as needed with dc plans/needs. Supply Cataloguer: Courtney Betancur RN, [facility] DCPIA - Discharge Planning Initial Assessment Updated by [email or web address]: Courtney Betancur on 12/12/18 12:07 pm * Is the patient Alert and Oriented? No * How many steps to enter\exit or inside your home? None * PCP Assisted MD * Pharmacy Nursing Pharmacy * Preadmission Environment Half-Way Facility * Facility Name [facility] * ADLs Partial Dependent * Partial ADLs (Assistance needed) Bathing Medication Management * List name and contact numbers for known caregivers / representatives who currently or will assist patient after discharge: Jordan Bustos - [facility] - [phone] * Can the patient safely return to the preadmission environment? Yes * Has this patient been hospitalized within the prior 30 days at any hospital? No Last DP export: 12/12/18 10:21 am Patient Name: JACQUELINE BUSTOS Page [phone] at 1216 All edits/amendments must be made on the electronic document DICTATION DATE: 12/12/181214 BRAIDING OPERATOR: RAHEEM 12/12/181214 RPT#: [id number] DC DATE: STATUS: ADM IN [facility] [address] [place] [address] END OF REPORT
--- NOTE | 2018-12-12 12:20 | NUR ---
CENTRAL LINE PLACED BY ALIREZA PITTS APN. RADIOLOGY CALLED FOR LINE PLACEMENT VERIFICATION BY CHEST XRAY.
--- NOTE | 2018-12-12 12:30 | NUR ---
OK TO USE RIGHT IJ CVL PER ALIREZA PITTS APN.
--- NOTE | 2018-12-12 13:27 | NUR ---
LEVOPHED AND MILTON BEING TITRATED TO EFFECT.
--- NOTE | 2018-12-12 13:58 | NUR ---
FAMILY AT BEDSIDE. UPDATED.
--- NOTE | 2018-12-12 15:00 | NUR ---
LATE ENTRY. REASSESSMENT COMPLETED. NO ACUTE CHANGES.
--- NOTE | 2018-12-12 17:00 | NUR ---
LATE ENTRY. NO ACUTE CHANGES. NO SEDATION. REMAINS ON VENT.
--- NOTE | 2018-12-12 17:28 | NUR ---
INCONTINENT OF STOOL. BATHED. LINENS CHANGED. PERICARE PERFORMED. RECTAL TUBE HAD COME OUT. PUT RECTA TUBE BACK IN TO PRESERVE SKIN INTEGRITY.
[2018-12-12 18:56] LABS: BILIRUBIN - TOTAL 0.54 mg/dL (0.2-1.3); CALCIUM 7.2 mg/dL (8.5-10.1); CARBON DIOXIDE 15.8 mmol/L (21.0-32.0); PROTEIN - SERUM 5.2 g/dL (6.4-8.2)
[2018-12-12 18:57] LABS: ALBUMIN 1.7 g/dL (3.4-5.0); ANION GAP 20.5 mmol/L (8-16); CREATININE - SERUM 2.6 mg/dL (0.6-1.3); POTASSIUM - SERUM 4.3 mmol/L (3.5-5.1)
--- NOTE | 2018-12-12 19:30 | NUR ---
SHIFT ASSESSMENT COMPLETE, PER NURSING FLOWSHEET, ORAL CARE PROVIDE, PATIENT REPOSITIONED, WILL CONTINUE TO TITRATE GTTS ACCORDINGLY, SOFT BUE WRIST RESTRAINTS IN PLACE
--- NOTE | 2018-12-12 21:00 | NUR ---
PATIENT REPOSITIONED, ETT SUCTIONED, CONTINUOUSLY MONITORING VSS AND TITRATING MEDICATIONS ACCORDINGLY, SEE IV DRIP FLOWSHEET
--- NOTE | 2018-12-12 23:00 | NUR ---
RE-ASSESSMENT COMPLETE, PER NURSING FLOWSHEET, COMPLETE LINEN CHANGE FOR LEAKAGE AROUND RECTAL TUBE, RECTAL TUBE REPOSITIONED, SHANNON CARE PROVIDED, ORAL CARE PROVIDED AND PATIENT REPOSITIONED
[2018-12-13] VITALS (61 sets, daily range): BP systolic 79–130; BP diastolic 37–98; BMI 49.8
--- NOTE | 2018-12-13 01:00 | NUR ---
SHANNON CARE PROVIDED, PATIENT REPOSITIONED, CONTINUE POC
--- NOTE | 2018-12-13 03:00 | NUR ---
RE-ASSESSMENT COMPLETE, PER NURSING FLOWSHEET, PATIENT REPOSITIONED, ORAL CARE PROVIDED, CONTINUING TO TITRATE DRIPS PER M.D. ORDERS
--- NOTE | 2018-12-13 05:00 | NUR ---
PARTIAL LINEN CHANGE FOR WEEEPING BLE EDEMA AND SMALL LEAKAGE FOR RECTAL TUBE, MEPILEX PLACE TO GLUTEAL CLEFT OVER REDDENED AREA, CONTINUE POC
[2018-12-13 05:35] LABS: MCH 30.3 pg (26.0-34.0); MCHC 33.2 g/dL (31.0-37.0); MEAN PLATELET VOLUME 12.9 fL (7.4-10.4); RDW 14.1 % (11.5-14.5)
[2018-12-13 05:36] LABS: HEMATOCRIT 31.6 % (36.0-48.0); HEMOGLOBIN 10.5 g/dL (12-16); MCV 91.1 fL (80.0-100.0); PLATELET COUNT 148 10x3/uL (130-400); RBC 3.47 10x6/uL (4.00-5.40); WBC 11.4 10x3/uL (4.8-10.8)
[2018-12-13 05:51] LABS: ALBUMIN 1.7 g/dL (3.4-5.0); ANION GAP 23.5 mmol/L (8-16); BILIRUBIN - TOTAL 0.68 mg/dL (0.2-1.3); CALCIUM 7.2 mg/dL (8.5-10.1); CARBON DIOXIDE 15.7 mmol/L (21.0-32.0); CREATININE - SERUM 3.2 mg/dL (0.6-1.3); MAGNESIUM - SERUM 1.1 mg/dL (1.8-2.4); POTASSIUM - SERUM 4.2 mmol/L (3.5-5.1); PROTEIN - SERUM 5.4 g/dL (6.4-8.2)
[2018-12-13 06:42] LABS: LYMPHOCYTES 9 % (15-50); MONOCYTES 3 % (2-11); NEUTROPHILS 67 % (40-80); PLATELET ESTIMATE NORMAL; PLATELET MORPHOLOGY GIANT PLTS PRESENT
--- NOTE | 2018-12-13 19:30 | NUR ---
ASSESSMENT COMPLETE, PER NURSING FLOWSHEET, PATIENT REPOSITIONED, ORAL CARE PROVIDED, CONTINUE POC
--- NOTE | 2018-12-13 21:00 | NUR ---
PATIENT REPOSITIONED, FAMILY AT BEDSIDE, UPDATE GIVEN, QUESTIONS ANSWERED
--- NOTE | 2018-12-13 23:00 | NUR ---
PATIENT RE-ASSESSMENT COMPLETE, ORAL CARE PROVIDED, PATIENT REPOSITIONED, PATIENT CONTINUES IN BUE SOFT WRIST RESTRAINTS
[2018-12-14] VITALS (38 sets, daily range): BP systolic 91–147; BP diastolic 39–126
--- NOTE | 2018-12-14 01:00 | NUR ---
PATIENT REPOSITIONED, QUNIONES CARE PROVIDED, ROM PERFORMED, BUE RESTRAINTS RELEASED, SKIN INSPECTED AND INTACT
--- NOTE | 2018-12-14 03:00 | NUR ---
RE-ASSESSMENT COMPLETE, PER NURSING FLOWSHEET, PATIENT REPOSITIONED, ORAL CARE PROVIDED, CONTINUE POC
--- NOTE | 2018-12-14 05:00 | NUR ---
PARTIAL LINEN CHANGE FOR LEAKAGE AROUND RECTAL TUBE, SHANNON CARE PROVIDED, MEPILEX TO GLUTEAL CLEFT REPLACED
[2018-12-14 06:05] LABS: BASOPHILS 0.2 % (0-2); EOSINOPHILS 0.1 % (0-7); HEMATOCRIT 29.5 % (36.0-48.0); HEMOGLOBIN 9.9 g/dL (12-16); IMMATURE GRANULOCYTES 2.6 % (0-5); LYMPHOCYTES 4.5 % (15-50); MCH 30.6 pg (26.0-34.0); MCHC 33.6 g/dL (31.0-37.0); MEAN PLATELET VOLUME 13.1 fL (7.4-10.4); MONOCYTES 1.8 % (2-11); NEUTROPHILS 90.8 % (40-80); PLATELET COUNT 113 10x3/uL (130-400); RBC 3.24 10x6/uL (4.00-5.40); RDW 14.6 % (11.5-14.5); WBC 13.2 10x3/uL (4.8-10.8)
[2018-12-14 06:44] LABS: ALBUMIN 1.7 g/dL (3.4-5.0); ANION GAP 20.8 mmol/L (8-16); BILIRUBIN - TOTAL 0.78 mg/dL (0.2-1.3); CALCIUM 7.1 mg/dL (8.5-10.1); MAGNESIUM - SERUM 1.3 mg/dL (1.8-2.4); POTASSIUM - SERUM 3.8 mmol/L (3.5-5.1); PROTEIN - SERUM 5.8 g/dL (6.4-8.2); VANCOMYCIN - RANDOM 23.9 ug/mL (10.0-20.0)
[2018-12-14 06:47] LABS: CREATININE - SERUM 4.1 mg/dL (0.6-1.3)
[2018-12-15] VITALS (20 sets, daily range): BP systolic 82–125; BP diastolic 32–105
[2018-12-15 06:20] LABS: BASOPHILS 0.2 % (0-2); EOSINOPHILS 0 % (0-7); HEMATOCRIT 32.7 % (36.0-48.0); HEMOGLOBIN 11.2 g/dL (12-16); IMMATURE GRANULOCYTES 2.9 % (0-5); LYMPHOCYTES 6.2 % (15-50); MCHC 34.3 g/dL (31.0-37.0); MONOCYTES 6.3 % (2-11); NEUTROPHILS 84.4 % (40-80); PLATELET COUNT 98 10x3/uL (130-400); RBC 3.73 10x6/uL (4.00-5.40); RDW 14.1 % (11.5-14.5)
[2018-12-15 06:43] LABS: ALBUMIN 1.7 g/dL (3.4-5.0); ANION GAP 19.3 mmol/L (8-16); BILIRUBIN - TOTAL 0.77 mg/dL (0.2-1.3); CALCIUM 7.4 mg/dL (8.5-10.1); CARBON DIOXIDE 23.2 mmol/L (21.0-32.0); CREATININE - SERUM 4.7 mg/dL (0.6-1.3); POTASSIUM - SERUM 3.5 mmol/L (3.5-5.1); PROTEIN - SERUM 6.1 g/dL (6.4-8.2); VANCOMYCIN - RANDOM 20.5 ug/mL (10.0-20.0)
[2018-12-15 06:46] LABS: MCV 87.7 fL (80.0-100.0)
--- NOTE | 2018-12-15 07:40 | NUR ---
VANCOMYCIN LEVEL IS STILL ELEVATED. NO DOSES TODAY. WILL CONTINUE DAILY RANDOMS AND PULSE DOSE NEEDED
[2018-12-15 07:48] LABS: PLATELET ESTIMATE DECREASED
--- NOTE | 2018-12-15 14:41 | NUR ---
ST EVALUATED SWALLOW AND WILL PLACE PROPER DIET ORDER.
--- NOTE | 2018-12-15 19:00 | NUR ---
SHIFT ASSESSMENT COMPLETE. PT IS A&O X4 AND SHE DOES NOT HAVE ANY PAIN OR DISCOMFORT. REPOSITIONED. PERRLA, 3 MM, BRISK REACTION TO LIGHT. NC ON @ 2 L/MIN HUMIDIFIED O2. VSS. RR EVEN AND UNLABORED, CLEAR LUNG SOUNDS HEARD THROUGHOUT ALL LOBES. ABD IS LARGE AND FIRM, BS ACTIVE X4. RECTAL TUBE INTACT, NO LEAKAGE NOTED. QUINONES CATH INTACT DRAINING CLEAR YELLOW URINE. RLQ ABD FOLD DRESSING CDI. UNABLE TO ATTACH SCDs DUE TO B/L BLISTERS ON LOWER EXT. LEG DRESSING CDI. L LEG +2 PITTING EDEMA NOTED. L SIDED WEAKNESS/PARALYSIS. L AC PIV S/L. R IJ CVL S/L, BIO PATCH ON, SWAB CAPS IN USE. CALL LIGHT IN REACH, BED IN LOWEST POSITION. WILL CONT CLOSE MONITORING IN ICU.
--- NOTE | 2018-12-15 21:00 | NUR ---
PT RESTING PEACEFULLY WITH NO SIGNS OF ACUTE DISTRESS NOTED. VSS. WILL CONT WITH POC.
--- NOTE | 2018-12-15 23:00 | NUR ---
PT PLACED ON BIPAP VIA RT.
--- NOTE | 2018-12-16 01:00 | NUR ---
PT RESTING PEACEFULLY WITH NO SIGNS OF ACUTE DISTRESS NOTED. VSS. WILL CONT TO MONITOR CLOSELY. BIPAP ON.
[2018-12-16 03:00] VITALS: BP 98/71
--- NOTE | 2018-12-16 03:00 | NUR ---
PT RESTING WITH NO S/S OF ACUTE DISTRESS NOTED. VSS. WILL CONT TO MONITOR. BIPAP ON.
--- NOTE | 2018-12-16 05:10 | NUR ---
REDRESSED LLE WOUND. COMPLETE LINEN CHANGE PROVIDED. VSS. PT TOLERATED WELL. QUINONES CARE PROVIDED. WILL CONT WITH POC.
[2018-12-16 05:28] LABS: HEMATOCRIT 27.4 % (36.0-48.0); HEMOGLOBIN 9.3 g/dL (12-16); MCH 29.7 pg (26.0-34.0); MCHC 33.9 g/dL (31.0-37.0); MCV 87.5 fL (80.0-100.0); PLATELET COUNT 106 10x3/uL (130-400); RBC 3.13 10x6/uL (4.00-5.40); RDW 14.4 % (11.5-14.5); WBC 21.1 10x3/uL (4.8-10.8)
[2018-12-16 06:05] LABS: ALBUMIN 1.7 g/dL (3.4-5.0); ANION GAP 17.7 mmol/L (8-16); BILIRUBIN - TOTAL 0.59 mg/dL (0.2-1.3); CARBON DIOXIDE 25.9 mmol/L (21.0-32.0); CREATININE - SERUM 5.4 mg/dL (0.6-1.3); MAGNESIUM - SERUM 2.1 mg/dL (1.8-2.4); POTASSIUM - SERUM 3.6 mmol/L (3.5-5.1); PROTEIN - SERUM 6.5 g/dL (6.4-8.2); VANCOMYCIN - RANDOM 18.8 ug/mL (10.0-20.0)
--- NOTE | 2018-12-16 06:33 | NUR ---
LARGE AMOUNTS OF YELLOW/CLEAR DRAINAGE FROM LLE. BLISTERS NOTED ON UPPER AND LOWER LEG. REDRESSED. WILL CONT WITH POC.
[2018-12-16 07:00] VITALS: BP 123/90
[2018-12-16 08:12] LABS: LYMPHOCYTES 17 % (15-50); MONOCYTES 8 % (2-11); NEUTROPHILS 68 % (40-80); PLATELET ESTIMATE DECREASED
[2018-12-16 08:13] LABS: ANISOCYTOSIS OCC
--- NOTE | 2018-12-16 10:09 | NUR ---
NUTRITION F/U NURSING REPORTS PT WITH GOOD INTAKE REG [facility] SOFT DIET. WILL CONTINUE TO PROVIDE DIET, MONITOR PO INTAKE. RD FOLLOWING
[2018-12-16 11:00] VITALS: BP 134/82
--- NOTE | 2018-12-16 14:55 | NUR ---
REPORT CALLED TO FLOOR NURSE
[2018-12-16 16:11] VITALS: BP 142/92
[2018-12-16 18:08] LABS: AEROBE ID Final report (())
--- NOTE | 2018-12-16 20:25 | NUR ---
rec'd. in bed numerous family members at bedside.drsg. left lower ext. intact.with edema present.castellano draining lite yellow urine.rectal tube in place. xray here to do ultra sound of kidneys. will continue to monitor for any chges and follow current plan of care
[2018-12-16 20:55] VITALS: BP 134/86
--- NOTE | 2018-12-17 01:38 | NUR ---
PT LYING IN BED RESTING, NO SIGNS OF DISTRESS. AGREE W/ ENGINEERING DRAWINGS CHECKER ASSESSMENT. WILL CONTINUE TO MONITOR
[2018-12-17 02:14] VITALS: BP 130/78
[2018-12-17 04:32] VITALS: BP 142/85
--- NOTE | 2018-12-17 05:09 | NUR ---
DTR. CALLED HERE AT [facility]. STATION,REQUESTING HER MOM CATH AND RECTAL BAG BE EMPTIED NOW.'STATES IT BEEN TWO HOURS AGO WHEN WE WERE UP THERE.STATES I WILL BE CALLING BACK TO SEE IF ITS BEEN DONE.NURSE INSTRUCTED PLEASE FEEL FREE TO CALL BACK.DTR. SLAMMED PHONE AND HUNG UP
[2018-12-17 07:32] LABS: ALBUMIN 1.7 g/dL (3.4-5.0); ANION GAP 18.9 mmol/L (8-16); BILIRUBIN - TOTAL 0.74 mg/dL (0.2-1.3); CALCIUM 7.8 mg/dL (8.5-10.1); CARBON DIOXIDE 25.2 mmol/L (21.0-32.0); CREATININE - SERUM 6.3 mg/dL (0.6-1.3); PHOSPHOROUS 5.8 mg/dL (2.5-4.9); POTASSIUM - SERUM 3.1 mmol/L (3.5-5.1); PROTEIN - SERUM 6.6 g/dL (6.4-8.2); VANCOMYCIN - RANDOM 17.6 ug/mL (10.0-20.0)
[2018-12-17 07:44] LABS: HEMATOCRIT 28.2 % (36.0-48.0); HEMOGLOBIN 9.5 g/dL (12-16); MCH 29.5 pg (26.0-34.0); MCHC 33.7 g/dL (31.0-37.0); MCV 87.6 fL (80.0-100.0); PLATELET COUNT 126 10x3/uL (130-400); RBC 3.22 10x6/uL (4.00-5.40); RDW 14.3 % (11.5-14.5); WBC 21.9 10x3/uL (4.8-10.8)
[2018-12-17 08:15] LABS: EOSINOPHILS 1 % (0-7); HYPOCHROMASIA OCC; LYMPHOCYTES 9 % (15-50); MONOCYTES 13 % (2-11); NEUTROPHILS 73 % (40-80); PLATELET ESTIMATE NORMAL; ROULEAUX OCC
--- NOTE | 2018-12-17 09:05 | NUR ---
PT AAOX4 RESP EVEN AND NONLABORED, NO SIGNS OF DISTRESS NOTED, DID A COMPLETE BED CHANGE AT THIS TIME, WILL CONTINUE TO MONITOR, CL IN REACH
[2018-12-17 09:38] VITALS: BP 144/80
--- NOTE | 2018-12-17 10:50 | NUR ---
PT HAD A LARGE BOWEL MOVEMENT REPOSTIONED AND CLEANED UP AT THIS TIME, CL IN REACH PT TOLERATED W/O COMPLAINT
--- NOTE | 2018-12-17 13:00 | NUR ---
CLEANED PT UP AGAIN AND COMPLETE BED CHANGE FROM BOWEL MOVEMENT, CL IN REACH
--- NOTE | 2018-12-17 16:00 | NUR ---
PT CLEANED UP AND LINENS CHANGED AT THIS TIME, CL IN REACH TOLERATED W/O COMPLAINT
--- NOTE | 2018-12-17 16:55 | NUR ---
Pt has numerous intact and ruptured blisters on left leg (lower leg, posterior upper and lower leg), posterior right leg, abdomen and buttocks). 3+ pitting edema is noted in left leg. All wounds were cleansed with wound barrel cleaner and painted with silvadene cream. They were then covered with adaptic and abd pads. The left leg was wrapped with kerlix and the other wound dressings were secured with medipore tape. Pt tolerated well.
[2018-12-17 17:24] VITALS: BP 157/82
[2018-12-17 20:27] VITALS: BP 158/89
[2018-12-18 00:11] VITALS: BP 154/78
--- NOTE | 2018-12-18 03:23 | NUR ---
1999)REC'D EYES CLOSED RESP. DEEP AND EVEN.02 2L NC.HOB UP 30 DEGREES.NO RESP. DISTRESS OBSERVED.INCONTINENT LGE. LOOSE FOUL SMELLING BM.PERICARE GIVEN LINENS CHGE.QUINONES PATENT DRAINING LITE YELLOW COLORED URINE.DRSG. INTACT TO LEFT LOWER LEG.3+ EDEMA FOOT. UP ON PILLOW.PEDAL PULSE PRESENT.LEFT SIDE FLACCID DUE TO PREVIOUS STROKE.WILL CONTINUE TO MONITOR FOR ANY CHGES. AND FOLLOW CURRENT PLAN OF CARE.
--- NOTE | 2018-12-18 03:30 | NUR ---
PT LYING IN BED, NO SIGNS OF DISTRESS. TESTER OPERATOR AT BEDSIDE PERFORMING COMPLETE BED CHANGE AND CLEANING PT D/T LARGE BM. DENIES NEEDS. CL IN REACH, WILL CONTINUE TO MONITOR
[2018-12-18 04:33] VITALS: BP 147/84
[2018-12-18 05:49] LABS: BASOPHILS 0.4 % (0-2); EOSINOPHILS 0.6 % (0-7); HEMOGLOBIN 9.3 g/dL (12-16); IMMATURE GRANULOCYTES 1.5 % (0-5); LYMPHOCYTES 7.7 % (15-50); MCH 29.5 pg (26.0-34.0); MCHC 33.2 g/dL (31.0-37.0); MCV 88.9 fL (80.0-100.0); MEAN PLATELET VOLUME 13.4 fL (7.4-10.4); MONOCYTES 4.5 % (2-11); NEUTROPHILS 85.3 % (40-80); PLATELET COUNT 129 10x3/uL (130-400); RBC 3.15 10x6/uL (4.00-5.40); RDW 14.6 % (11.5-14.5); WBC 22.7 10x3/uL (4.8-10.8)
[2018-12-18 05:50] LABS: ALBUMIN 1.6 g/dL (3.4-5.0); ANION GAP 18.2 mmol/L (8-16); BILIRUBIN - TOTAL 0.63 mg/dL (0.2-1.3); CARBON DIOXIDE 24.1 mmol/L (21.0-32.0); CREATININE - SERUM 6.8 mg/dL (0.6-1.3); POTASSIUM - SERUM 3.3 mmol/L (3.5-5.1); PROTEIN - SERUM 6.4 g/dL (6.4-8.2); VANCOMYCIN - RANDOM 15.5 ug/mL (10.0-20.0)
[2018-12-18 09:00] VITALS: BP 142/81
--- NOTE | 2018-12-18 11:20 | EC ---
PATIENT:JACQUELINE ALMODOVAR DATE OF SERVICE: 12/12/18 SEX: F MEDICAL RECORD: [id number] DATE OF : [birth year] LOCATION:[facility] AGE OF PATIENT: 47 ADMISSION DATE: 12/12/18 REFERRING PHYSICIAN: INTERPRETING PHYSICIAN: CAMDEN DIALLO MD ECHOCARDIOGRAM REPORT ECHO CHARGES 4 ECHO COMPLETE Date: 12/17/18 CLINICAL DIAGNOSIS: ASSESS EF ECHOCARDIOGRAPHIC MEASUREMENTS (adult normal given) AC root (d.<3.7cm) 3.8 cm LV Septum d (<1.2 cm> 1.6 cm Valve Excursion 2.0 cm LV Septum (systole) 1.8 cm Left Atria (s.<4.0cm> 4.2 cm LVPW d(<1.2cm) 1.7 cm RV (d.<2.3cm) 3.5 cm LVPW (sytole) 1.9 cm LV diastole(<5.6CM) 5.2 cm MV E-F(>70mm/sec) cm LV systole 3.0 cm LVOT Diameter 2.1 cm MV exc.(>10mm) 1.9 cm Est.ejection fraction (50-75%) % DOPPLER: LVIT cm/sec A 99.0 cm/sec E 80.0 cm/sec LA cm/sec RVSP 43 mmHg LVOT 130 cm/sec AOP1/2T 424 m/s Asc. Ao 202 cm/sec RVOT 120 cm/sec RA cm/sec PA 178 cm/sec AV Gradient Peak 16.28mmHg AV Mean 8.07 mmHg AV Area 2.3 cm MV Gradient Peak 6.90 mmHg MV Mean 2.24 mmHg MV Area cm COMMENTS: Sweep Press Operator: Catherine GUNN Oceanographer Geological: 2 Dr. Giraldo TAPE# PACS Pericardial Effusion N DATE OF SERVICE: 12/17/2018 ECHOCARDIOGRAM DATE OF SERVICE: 12/17/2018 FINDINGS: 1. Left ventricular chamber size is within normal limits. Left ventricular systolic function is normal. Overall ejection fraction estimated at 60%. 2. Left atrium is enlarged at 4.2 cm. Right atrium and right ventricular ECHOCARDIOGRAM REPORT [id number] JACQUELINE ALMODOVAR chamber sizes are within normal limits. 3. Valvular structures have normal structure and motion. 4. Doppler interrogation reveals mild aortic insufficiency, mild tricuspid regurgitation, no other valvular insufficiency or stenosis. Pulmonary systolic pressure is estimated at 43 mmHg. 5. No evidence of pericardial effusion or left ventricular thrombus. TRANSINT:[id number] Voice Confirmation ID: [id number] DOCUMENT ID: [id number] CAMDEN DIALLO MD at 1120 CC: [id number] DICTATION DATE: 12/17/18 1238 SWIMMING POOL INSTALLER: 12/17/18 1252 ADM IN [place] [id number] [place] [address]
[2018-12-18 12:53] VITALS: Ht 175.3 cm; Wt 105.0 kg
[2018-12-18 13:56] VITALS: BP 169/85
--- NOTE | 2018-12-18 15:19 | NUR ---
STAT LOCK TO QUINONES, RIGHT IJ DRESSING CHANGED AND ALL 3 PORTS FLUSHED. DRESSING CHANGED TO LEFT LOWER LEG. TOLERATED WELL WITHOUT COMPLAINTS. SPECIMENS COLLECTED FOR STOOL, URINE AND CULTURE AND SENT TO LAB.
--- NOTE | 2018-12-18 15:22 | NUR ---
PATIENT IN BED, QUINONES PATENT AND DRAINING BRANNON URINE, QUINONES TUBING RE-CLAMPED TO COLLECT MORE URINE FOR TESTS. PATIENT HAS LARGE BLISTER ON LEFT TOP FOOT, OPEN AREAS AND BLISTERS NOTED UP AND DOWN LEFT LEG, CLEANED AND DRESSED.C/L WITHIN REACH AND SR'S UP X'S 2.
[2018-12-18 17:12] VITALS: BP 135/78
--- NOTE | 2018-12-18 21:39 | NUR ---
RESTING IN BED RESP. EVEN AND UNLABORED CALL LIGHT IN REACH.
--- NOTE | 2018-12-19 08:06 | NUR ---
RANDOM WAS 21.8, NO DOSES TODAY. RECHECK RANDOM IN AM
[2018-12-19 08:42] LABS: HEMATOCRIT 26.6 % (36.0-48.0); HEMOGLOBIN 8.9 g/dL (12-16); MCH 29.5 pg (26.0-34.0); MCHC 33.5 g/dL (31.0-37.0); MCV 88.1 fL (80.0-100.0); MEAN PLATELET VOLUME 13.2 fL (7.4-10.4); PLATELET COUNT 144 10x3/uL (130-400); RBC 3.02 10x6/uL (4.00-5.40); RDW 14.5 % (11.5-14.5); WBC 23.7 10x3/uL (4.8-10.8)
[2018-12-19 08:46] VITALS: BP 156/75
[2018-12-19 08:46] LABS: ANION GAP 16.6 mmol/L (8-16); CALCIUM 7.8 mg/dL (8.5-10.1); CARBON DIOXIDE 24.7 mmol/L (21.0-32.0); CREATININE - SERUM 7.2 mg/dL (0.6-1.3); POTASSIUM - SERUM 3.3 mmol/L (3.5-5.1)
[2018-12-19 08:47] LABS: CREATININE - URINE 13.2 mg/dL (30-125); PROTEIN - URINE 27.4 mg/dL (0.0-11.9)
[2018-12-19 09:39] LABS: APPEARANCE CLEAR (CLEAR); BILIRUBIN NEGATIVE (NEGATIVE); COLOR STRAW (YELLOW); GLUCOSE NEGATIVE (NEGATIVE); KETONE NEGATIVE (NEGATIVE); NITRITE NEGATIVE (NEGATIVE); PROTEIN NEGATIVE (NEGATIVE); SPECIFIC GRAVITY 1.005 (1.005-1.020); UROBILINOGEN NORMAL (NORMAL)
[2018-12-19 09:53] LABS: BACTERIA FEW /hpf (NONE SEEN); EPITHELIAL CELLS OCC /hpf (0-5); RED CELLS - URINE 0-5 /hpf (0-5); WHITE CELLS - URINE OCC /hpf (0-5)
[2018-12-19 10:24] LABS: EOSINOPHILS 2 % (0-7); LYMPHOCYTES 9 % (15-50); MONOCYTES 4 % (2-11); NEUTROPHILS 84 % (40-80); PLATELET ESTIMATE NORMAL
[2018-12-19 12:46] VITALS: BP 137/87
[2018-12-19 18:16] VITALS: BP 166/87
[2018-12-19 21:40] VITALS: BP 150/76
[2018-12-20 01:11] VITALS: BP 159/83
[2018-12-20 04:53] LABS: BASOPHILS 0.2 % (0-2); EOSINOPHILS 1.1 % (0-7); HEMOGLOBIN 9.2 g/dL (12-16); IMMATURE GRANULOCYTES 1.1 % (0-5); LYMPHOCYTES 6.4 % (15-50); MCH 29.7 pg (26.0-34.0); MCHC 34.1 g/dL (31.0-37.0); MCV 87.1 fL (80.0-100.0); MEAN PLATELET VOLUME 12.7 fL (7.4-10.4); MONOCYTES 5.3 % (2-11); NEUTROPHILS 85.9 % (40-80); PLATELET COUNT 145 10x3/uL (130-400); RDW 14.3 % (11.5-14.5)
[2018-12-20 05:06] VITALS: BP 158/80
[2018-12-20 05:20] LABS: ANION GAP 21.4 mmol/L (8-16); CALCIUM 7.7 mg/dL (8.5-10.1); CARBON DIOXIDE 21.3 mmol/L (21.0-32.0); CREATININE - SERUM 7.6 mg/dL (0.6-1.3); POTASSIUM - SERUM 3.7 mmol/L (3.5-5.1); VANCOMYCIN - RANDOM 18.6 ug/mL (10.0-20.0)
--- NOTE | 2018-12-20 07:25 | NUR ---
RANDOM VANCOMYCIN LEVEL WAS 18.6 WILL GIVE A 750 MG VANCOMYCIN TODAY. RANDOM VANCOMYCIN LEVELS ORDERED THROUGH 12/22. REASSESS BASED OFF OF RANDOMS
--- NOTE | 2018-12-20 08:58 | NUR ---
PT SEEN AND ASSESSED. STATES MILD PAIN GENERALIZED AND TYLENOL GIVEN REQUESTED. LEFT SIDE OF BODY FLACCID DUE TO OLD CVA. DRESSINGS NOTED TO LEFT LOWER LEG FOR MULTIPLE BLISTERS AND SLOUGHED SKIN. MEDIPLEX NOTED TO BUTTOCK FOR SLOUGHED SKIN. WILL CONTINUE TO MONITOR AND TURN EVERY 2 HOURS. DRESSING CHANGE TO BE DONE LATER TODAY. CALL LIGHT IN REACH
[2018-12-20 10:04] VITALS: BP 160/89
--- NOTE | 2018-12-20 11:07 | NUR ---
CONSENT SIGNED FOR TRIAYLSIS CATHETER INSERTION PER Erasto PITTS apn.
--- NOTE | 2018-12-20 13:04 | NUR ---
DRESSING CHANGED PERFORMED TO LLE. LARGE BLISTER IS NO LONGER THERE SINCE SUN. MULTIPLE BLISTERS WITH FLUID NOTED TO LEFT LOWER LEG WITH SOME SKIN SLOUGHING NOTED. SILVEDENE WITH SHRUTHI. GAUZE, ABD PADS, 4X4S AND WRAPPED WITH SARITA. NEW MEDIPLEX DRESSING APPLIED TO COCCYX WITH SKIN SLOUGHING NOTED. CLEANED FROM INCONT OF LARGE STOOL. LINENS CHANGED AND LEFT LOWER LEG ELEVATED ON PAD ON PILLOW. TOLERATED WITHOUT COMPLAINTS.
--- NOTE | 2018-12-20 14:02 | NUR ---
TO DIALYSIS PER BED WITH CHART.
[2018-12-20 14:49] VITALS: BP 171/91
--- NOTE | 2018-12-20 16:45 | NUR ---
REPORT CALL AND RESIDENT TRANSFERED TO 2109. STABLE AT TIME OF TRANSFER.
--- NOTE | 2018-12-20 17:34 | NUR ---
PT ARRIVED FROM DIALYSIS AFTER BEING ON MED-SURG. ASSISTED PT UP IN BED AND PLACED WEDGE UNDER R.SIDE FOR COMFORT REQUESTED. SET UP PTS DINNER FOR HER REQUESTED. NO IMMEDIATE NEEDS. PT STABLE AND EATING DINNER. WILL CTM.
--- NOTE | 2018-12-20 18:25 | NUR ---
PTS R.IJ TRIALYSIS DRSG IS SOILED AND FALLING OFF ITS ALSO THE INCORRECT DRSG. I EXPLAINED TO PT AND BROUGHT IN CENTRAL LINE KIT AND SHE IS REFUSING TO LET ME CHANGE IT. SHE STATES "NO THEY JUST PUT IT IN" I TRIED TO EXPLAIN TO HER THE DIFFERENCE AND WHAT I WAS TALKING ABOUT HOWEVER SHE CONTINUES TO ARGUE WITH ME AND REFUSES TO LET ME TOUCH HER OR IT. WILL TRY AGAIN IN A LITTLE BIT AND ALSO IS ROUNDING WILL DISCUSS WITH HER.
--- NOTE | 2018-12-20 18:57 | NUR ---
PATIENT FINALLY AGREED TO ALLOW RN TO CHANGE TRIALYSIS DRESSING. DRESSING CHANGE PERFORMED VIA STERILE TECHNIQUE, BIOPATCH IN USE. NO COMPLICATIONS NOTED AT THIS TIME. DENIES PAIN AT THIS TIME, WILL CONTINUE TO FOLLOW PLAN OF CARE
--- NOTE | 2018-12-20 21:45 | NUR ---
NIGHTLY ROUNDS COMPLETED. PT SWALLOWED HER NIGHTLY MEDICATIONS WITHOUT ANY DIFFICULTIES. PT STATES SHE IS FEELING GOOD BUT WANTS TO GO BACK TO SLEEP. NO IMMEDIATE NEEDS NOTED AT THIS TIME. PROVIDED PT WITH ICE WATER. CL IN REACH, BED IN LOWEST, SIDE RAILS X2. BUILT IN BED ALARM ON. WILL CTM.
[2018-12-20 22:08] VITALS: BP 151/79
--- NOTE | 2018-12-21 01:12 | NUR ---
REPORT RECEIVED. EVENING ROUNDS COMPLETED. PT SITTING UP IN BED WITH EYES OPEN, RR EVEN AND UNLABORED. INTRODUCED SELF TO PT. PT STATES SHE NEEDS A DRINK, DRINK PROVIDED AFTER DIET ORDERS CHECKED. ORDERED ANTIBIOTICS INFUSING THROUGH RIGHT IJ. NO S/S OF DISTRESS NOTED. BED IN LOW POSITION. CALL LIGHT IN REACH. WILL CTM.
--- NOTE | 2018-12-21 04:10 | NUR ---
RESTING IN BED WITH EYES CLOSED. NO S/S OF DISTRESS OBSERVED. WILL CONT. POCF.
--- NOTE | 2018-12-21 05:30 | NUR ---
PT PROVIDED LINEN CHANGE AND BED BATH. SILAVDENE CREAM APPLIED TO INNER THIGH EXCIORIATIONS AND ABDOMINAL EXCORIATION. DRESSINGS APPLIED TO LOWER ABDOMINAL DRESSINGS. MINIMAL DRAINAGE NOTED, YELLOW IN COLOR. NO ODORS NOTED. WILL CTM.
[2018-12-21 05:38] LABS: BASOPHILS 0.1 % (0-2); EOSINOPHILS 0.6 % (0-7); HEMATOCRIT 25.6 % (36.0-48.0); HEMOGLOBIN 8.5 g/dL (12-16); IMMATURE GRANULOCYTES 0.7 % (0-5); LYMPHOCYTES 9.6 % (15-50); MCHC 33.2 g/dL (31.0-37.0); MCV 87.4 fL (80.0-100.0); MONOCYTES 6.4 % (2-11); NEUTROPHILS 82.6 % (40-80); PLATELET COUNT 167 10x3/uL (130-400); RBC 2.93 10x6/uL (4.00-5.40); RDW 14.6 % (11.5-14.5); WBC 14.3 10x3/uL (4.8-10.8)
[2018-12-21 05:55] LABS: CALCIUM 7.5 mg/dL (8.5-10.1); CARBON DIOXIDE 23.4 mmol/L (21.0-32.0); CREATININE - SERUM 6.5 mg/dL (0.6-1.3); POTASSIUM - SERUM 3.4 mmol/L (3.5-5.1); VANCOMYCIN - RANDOM 19.9 ug/mL (10.0-20.0)
--- NOTE | 2018-12-21 06:40 | NUR ---
PT CURRENTLY SITTING UP IN BED WITH EYES OPEN, RR EVEN AND UNLABORED. LEFT LOWER EXTREMITY DRESSING CHANGED. MINIMAL DRAINAGE NOTED, YELLOW IN COLOR. NO ODORS NOTED. PT DENIES FURTHER NEEDS AT THIS TIME. CALL LIGHT IN REACH. WILL CTM.
[2018-12-21 07:42] VITALS: BP 150/86
--- NOTE | 2018-12-21 14:10 | NUR ---
ALERT AND ORIENTED TO PERSON, PLACE AND SITURATION WITH LIMITED EXPRESIVE APHASIA NOTED. PERICARE DONE WITH DRESSING CHANGED TO COCCYX. DSG INTACT TO ABDOMEN. QUINONES CATH INTACT. TOLERATED DIALYSIS WELL. LT. HEMIPARESIS NOTED. ENCOURAGED TO USE CALL LIGHT FOR ASSIST.LUNGS CTA.
[2018-12-21 16:11] VITALS: BP 123/76
--- NOTE | 2018-12-21 19:22 | NUR ---
EVENING ROUNDS COMPLETED. REPORT RECEIVED. PT SITTING UP IN BED WITH EYES OPEN, RR EVEN AND UNLABORED. BED IN LOW POSITION. NO S/S OF DISTRESS NOTED. INTRODUCED SELF TO PT. PT REQUESTED LIGHTS TO BE TURNED OFF IN ROOM PT STATES SHE IS TRYING TO SLEEP. PT DENIES FURTHER NEEDS. CALL LIGHT IN REACH. WILL CTM.
[2018-12-21 20:00] VITALS: BP 153/87
[2018-12-22] VITALS: BP 139/79
--- NOTE | 2018-12-22 01:45 | NUR ---
RESTING IN BED WITH RESPS EVEN/NONLABORED. NO DISTRESS. IVF INFUSING. MONITOR AND CPOC.
--- NOTE | 2018-12-22 03:44 | NUR ---
LEFT LOWER EXTREMITY DRESSING CHANGED ORDERED. MINIMAL BLEEDING NOTED. YELLOW DRAINAGE NOTED NEAR DORSAL ASPECT OF LEFT FOOT. NO FOUL ODOR NOTED. LOWER ABDOMINAL DRESSING CHANGED ORDERED. MINIMAL DRAINAGE NOTED, WOUND BORDERS APPEAR TO BE PINK IN COLOR.
[2018-12-22 04:00] VITALS: BP 139/75
[2018-12-22 04:46] LABS: BASOPHILS 0.1 % (0-2); EOSINOPHILS 0.4 % (0-7); HEMATOCRIT 25.4 % (36.0-48.0); HEMOGLOBIN 8.5 g/dL (12-16); IMMATURE GRANULOCYTES 0.5 % (0-5); LYMPHOCYTES 10.8 % (15-50); MCH 29.4 pg (26.0-34.0); MCHC 33.5 g/dL (31.0-37.0); MCV 87.9 fL (80.0-100.0); MEAN PLATELET VOLUME 13.5 fL (7.4-10.4); MONOCYTES 5.7 % (2-11); NEUTROPHILS 82.5 % (40-80); PLATELET COUNT 150 10x3/uL (130-400); RBC 2.89 10x6/uL (4.00-5.40); RDW 14.5 % (11.5-14.5); WBC 13.4 10x3/uL (4.8-10.8)
[2018-12-22 05:01] LABS: ANION GAP 15.4 mmol/L (8-16); CALCIUM 7.5 mg/dL (8.5-10.1); CARBON DIOXIDE 25.1 mmol/L (21.0-32.0); CREATININE - SERUM 5.5 mg/dL (0.6-1.3); POTASSIUM - SERUM 3.5 mmol/L (3.5-5.1); VANCOMYCIN - RANDOM 16.4 ug/mL (10.0-20.0)
--- NOTE | 2018-12-22 06:08 | NUR ---
PT SITTING UP IN BED WITH EYES OPEN, RR EVEN AND UNLABORED. BED IN LOW POSITION. NO S/S OF DISTRESS NOTED. DENIES FURTHER NEEDS AT THIS TIME. CALL LIGHT IN REACH. WILL CTM.
[2018-12-22 08:06] VITALS: BP 146/70
[2018-12-22 13:06] VITALS: BP 150/78
--- NOTE | 2018-12-22 17:34 | NUR ---
ALERT AND ORIENTED X4. SITTING UP IN BED. FAMILY AT BEDSIDE. REQUESTING IMMODIUM. CALL . INFORM PATIENT TAKING DEPO SHOT AND IT IS DUE. PATIENT STARTED MENSTRUAL CYCLE. STOOL TO BE COLLECTED BEFORE IMMODIUM ADMINISTERED PER . CONTINUE PLAN OF CARE. DRESSING TO COCCYX CHANGED. CONTINUE SAFETY PRECAUTIONS.
[2018-12-22 17:55] VITALS: BP 153/81
--- NOTE | 2018-12-22 19:30 | NUR ---
RECEIVED REPORT, WILL ASSUME CARE OF PT, PT ASKING ME TO HELP REPOSTION HER LEG, PLACED L.LEG ON PILLOW, ASSISTED IN RAISING PT HEAD, DENIES ANY OTHER NEEDS AT THIS TIME, PLACED CALL LIGHT IN REACH, BED IS LOW, SRX2, WILL CONTINUE PLAN OF CARE
[2018-12-22 20:24] VITALS: BP 137/78
[2018-12-23 01:24] VITALS: BP 132/71
--- NOTE | 2018-12-23 04:55 | NUR ---
RESTING WITH NO DISTRESS. RESPS EVEN/NONLABORED. MONITOR AND CPOC.
--- NOTE | 2018-12-23 04:57 | NUR ---
LAB DRAW COMPLETE
[2018-12-23 05:02] VITALS: BP 150/80
[2018-12-23 06:06] LABS: BASOPHILS 0.2 % (0-2); EOSINOPHILS 0.5 % (0-7); HEMATOCRIT 24.3 % (36.0-48.0); HEMOGLOBIN 8.1 g/dL (12-16); IMMATURE GRANULOCYTES 0.4 % (0-5); LYMPHOCYTES 10.7 % (15-50); MCH 29.6 pg (26.0-34.0); MCHC 33.3 g/dL (31.0-37.0); MCV 88.7 fL (80.0-100.0); MEAN PLATELET VOLUME 13.7 fL (7.4-10.4); MONOCYTES 6.4 % (2-11); NEUTROPHILS 81.8 % (40-80); PLATELET COUNT 167 10x3/uL (130-400); RBC 2.74 10x6/uL (4.00-5.40); WBC 13.1 10x3/uL (4.8-10.8)
[2018-12-23 06:19] LABS: ANION GAP 14.5 mmol/L (8-16); CALCIUM 7.8 mg/dL (8.5-10.1); CARBON DIOXIDE 25.2 mmol/L (21.0-32.0); CREATININE - SERUM 6.2 mg/dL (0.6-1.3); POTASSIUM - SERUM 3.7 mmol/L (3.5-5.1)
[2018-12-23 07:03] VITALS: BP 126/79
--- NOTE | 2018-12-23 07:59 | NUR ---
REPORT RECEIVED. WILL CONTINUE WITH POC. PT CURRENTLY LYING SEMI FOWLERS. CALL LIGHT W/I REACH. PT IS AAO BUT SLOW TO RESPOND WITH SLURRED SPEECH. PT IS BEDFAST ON 1ST STEP OVERLAY. RR EVEN AND UNLABORED ON RA. R.IJ TRIALYSIS IS SALINE LOCKED. PT DENIES ANY NEEDS AT THIS TIME. WILL CTM.
--- NOTE | 2018-12-23 09:07 | NUR ---
PT REFUSED MRI. RICARDO RAY TRIED TO TALK HER INTO IT AND SHE REFUSED.
--- NOTE | 2018-12-23 11:59 | MORECARE ---
CASE MANAGEMENT DISCHARGE SUMMARY PATIENT: JACQUELINE BUSTOS UNIT: [id number] ADM DATE: 12/12/18 AGE: 48 : 70 SEX: F ROOM/BED: D.2101 AUTHOR: JAMDOC PHYSICIAN: REFERRING PHYSICIAN: RUSSELL GIRON MD DATE OF SERVICE: 12/23/18 Discharge Plan Patient Name: JACQUELINE BUSTOS Facility: [facility]:[place] : 1970 Planned Disposition: Senior Care Facility Anticipated Discharge Date: 12/17/18 Discharge Date: Expected LOS: 5 Initial Reviewer: [email or web address] Initial Review Date: 12/12/2018 Generated: 12/23/18 12:59 pm DCP- Discharge Planning Updated by [email or web address]: Courtney Betancur on 12/12/18 11:[address] Patient Name: JACQUELINE BUSTOS Admission Status: ER Accout number: [id number] Admission Date: 12-12-2018 : 1970 Admission Diagnosis: Attending: RUSSELL GIRON Current LOS: 1 Anticipated DC Date: 12-17-2018 Planned Disposition: Senior Care Facility Primary Insurance: [facility] MEDICARE SOLUTIONS Discharge Planning Comments: CM met with patient to complete initial dc planning assessment. Patient sedated on a vent and unable to answer questions. Patient is a resident at [facility]. CM spoke to Arlyn @ [facility] who stated if the patient stays 3 mn that they will bring her back under her medicare benefit for rehab is she needs it. She will require prior authorization as she has [facility] Medicare Solutions. CM will continue to follow and will assist as needed with dc plans/needs. Tank Truck Loader: Courtney Betancur RN, [facility] DCPIA - Discharge Planning Initial Assessment Updated by [email or web address]: Courtney Betancur on 12/12/18 12:07 pm * Is the patient Alert and Oriented? No * How many steps to enter\exit or inside your home? None * PCP Fci MD * Pharmacy [facility] * Preadmission Environment Senior Care Facility * Facility Name [facility] * ADLs Partial Dependent * Partial ADLs (Assistance needed) Bathing Medication Management * List name and contact numbers for known caregivers / representatives who currently or will assist patient after discharge: Jordan Bustos - [facility] - [phone] * Can the patient safely return to the preadmission environment? Yes * Has this patient been hospitalized within the prior 30 days at any hospital? No External Providers External Provider: [facility] Next Contact Date: 12/23/2018 Service Request Date: Service Type: Resolution: Reviewer: Comments: Last DP export: 12/12/18 11:16 am Patient Name: JACQUELINE BUSTOS Page [phone] at 1159 All edits/amendments must be made on the electronic document DICTATION DATE: 12/23/18 1159 ONCOLOGY REP SPECIALIST: RAHEEM 12/23/18 1159 RPT#: [id number] DC DATE: STATUS: ADM IN [address] [place] [address] END OF REPORT
[2018-12-23 12:53] VITALS: BP 143/70
[2018-12-23 17:47] VITALS: BP 154/76
--- NOTE | 2018-12-23 19:53 | NUR ---
RECEIVED REPORT, WILL ASSUME CARE OF PT, FAMILY IN ROOM, COMPLAINS OF ANTS, NOTIFIED REBECCA LYONSUPERVISOR, BED IS LOW, SRX2, CALL LIGHT IN REACH, WILL CONTINUE PLAN OF CARE
[2018-12-23 21:03] VITALS: BP 146/85
[2018-12-24 01:03] VITALS: BP 148/81
--- NOTE | 2018-12-24 02:58 | NUR ---
LYING IN BED WITH EYES CLOSED, CALL LIGHT IN REACH. WILL CONTINUE WITH PLAN OF CARE.
--- NOTE | 2018-12-24 04:45 | NUR ---
ALL DRESSING CHANGED
[2018-12-24 05:34] LABS: BASOPHILS 0.2 % (0-2); EOSINOPHILS 0.6 % (0-7); HEMATOCRIT 24.2 % (36.0-48.0); IMMATURE GRANULOCYTES 0.4 % (0-5); LYMPHOCYTES 12.7 % (15-50); MCH 29.4 pg (26.0-34.0); MCHC 33.1 g/dL (31.0-37.0); MEAN PLATELET VOLUME 13.5 fL (7.4-10.4); MONOCYTES 6.3 % (2-11); NEUTROPHILS 79.8 % (40-80); PLATELET COUNT 178 10x3/uL (130-400); RBC 2.72 10x6/uL (4.00-5.40); WBC 12.3 10x3/uL (4.8-10.8)
[2018-12-24 06:01] LABS: ALBUMIN 1.6 g/dL (3.4-5.0); ALKALINE PHOSPHATASE 88 U/L (46-116); CALC OSMOLALITY 292 mosm/kg (275-300); CALCIUM 7.3 mg/dL (8.5-10.1); CARBON DIOXIDE 24.9 mmol/L (21.0-32.0); CHLORIDE - SERUM 102 mmol/L (98-107); CREATININE - SERUM 6.3 mg/dL (0.6-1.3); GLUCOSE 106 mg/dL (74-106); POTASSIUM - SERUM 3.7 mmol/L (3.5-5.1); PROTEIN - SERUM 7.2 g/dL (6.4-8.2); SODIUM 138 mmol/L (136-145); UREA NITROGEN 60 mg/dL (7-18); eGFR NON AFRICAN AMERICAN 7 mL/min (90-120)
[2018-12-24 06:16] LABS: ALT (SGPT) < 6 U/L (10-68)
[2018-12-24 06:21] VITALS: BP 140/79
--- NOTE | 2018-12-24 07:30 | NUR ---
RECEIVED A/A/OX4. SPEECH SLOW AND DELIBERATE. DENIES ANY PAIN OR NEEDS AT PRESENT TIME. ASSESSMENT COMPLETED. DRESSING TO LEFT LEG C/D/I, ABD PADS IN PLACE TO LOWER ABD FOLDS. QUINONES PATENT AND DRAINING WELL TO BEDSIDE DRAINAGE. BED IN LOWEST POSITION WITH SIDERAILS UP X 2 AND CALL LIGHT IN REACH. ASSESSMENT COMPLETED. WILL CONTINUE POC.
[2018-12-24 09:06] VITALS: BP 156/84
--- NOTE | 2018-12-24 10:04 | NUR ---
Nutrition follow-up: Diet: Regular PO Intake 50-75% of some meals Labs reviewed; renal function improving and will not need further dialysis treatments per orientation & mobility specialist. Wt: 237# +BM RDN following.
[2018-12-24 13:06] VITALS: BP 136/71
--- NOTE | 2018-12-24 13:15 | NUR ---
P.T. HERE AND ATTEMPTED WITH 2 ASST TO GET PT OUT OF BED BUT UNABLE TO PUT ANY WEIGHT DOWN AND STAND. ASSISTED BACK IN TO BED AND MADE COMFORTABLE.
--- NOTE | 2018-12-24 16:29 | NUR ---
RESTING QUIETLY WITHOUT ANY DISTRESS. READ SENIOR BUSINESS MANAGER ASSESSMENT AND CONCUR WITH IT.
[2018-12-24 19:11] VITALS: BP 155/80
--- NOTE | 2018-12-24 19:39 | NUR ---
RESUMING CARE. PT LAYING IN BED A&O X4 ON RA, BREATH SOUNDS EVEN , RT IJ SL , PT HAS DRSG TO LEFT LEG AND FOOT WITH LEFT DROP , 2 DRSGING TO LOWER ABDOMEN UNDER FOLDS ALL DRSGING C.D.I CAHNGED TODAY, PT C/O HIP PAIN , PT IS ORDERED TO BE ON FIRST STEP OVERLAY MATTRESS, THERE IS MATTRESS ON BED BUT NOT WORKING, WILL PUT NEW MATTRESS IN PLACE CL IN REACH WILL CONT TO VIOLETA
[2018-12-24 22:27] VITALS: BP 129/75
[2018-12-25 02:16] VITALS: BP 156/75
[2018-12-25 05:44] VITALS: BP 154/83
[2018-12-25 06:18] LABS: BASOPHILS 0.3 % (0-2); EOSINOPHILS 0.8 % (0-7); HEMATOCRIT 23.1 % (36.0-48.0); HEMOGLOBIN 7.7 g/dL (12-16); IMMATURE GRANULOCYTES 0.3 % (0-5); LYMPHOCYTES 11.4 % (15-50); MCH 29.5 pg (26.0-34.0); MCHC 33.3 g/dL (31.0-37.0); MCV 88.5 fL (80.0-100.0); MEAN PLATELET VOLUME 13.3 fL (7.4-10.4); MONOCYTES 7.6 % (2-11); NEUTROPHILS 79.6 % (40-80); PLATELET COUNT 199 10x3/uL (130-400); RBC 2.61 10x6/uL (4.00-5.40); WBC 10.4 10x3/uL (4.8-10.8)
[2018-12-25 06:31] LABS: ALBUMIN 1.6 g/dL (3.4-5.0); ALKALINE PHOSPHATASE 82 U/L (46-116); BILIRUBIN - TOTAL 0.34 mg/dL (0.2-1.3); CALC OSMOLALITY 295 mosm/kg (275-300); CALCIUM 7.4 mg/dL (8.5-10.1); CARBON DIOXIDE 24.3 mmol/L (21.0-32.0); CHLORIDE - SERUM 103 mmol/L (98-107); CREATININE - SERUM 6.6 mg/dL (0.6-1.3); GLUCOSE 103 mg/dL (74-106); POTASSIUM - SERUM 3.8 mmol/L (3.5-5.1); PROTEIN - SERUM 7.3 g/dL (6.4-8.2); SODIUM 139 mmol/L (136-145); UREA NITROGEN 62 mg/dL (7-18); eGFR NON AFRICAN AMERICAN 7 mL/min (90-120)
[2018-12-25 06:39] LABS: ALT (SGPT) < 6 U/L (10-68)
--- NOTE | 2018-12-25 07:30 | NUR ---
RECEIVED A/A/OX4. REMAINS SLOW TO RESPOND AND HAS TO REALLY CONCENTRATE ON WHAT SHE WANTS TO SAY. NO REQUESTS VOICED AT PRESENT TIME. QUINONES PATENT AND DRAINING LIGHT YELLOW URINE TO BEDSIDE DRAINAGE. TRIALYSIS CATH TO RIGHT IJ AND INTACT WITH DRESSING C/D/I. ASSESSMENT COMPLETED. BED ELEVATED SOME AT PTS REQUEST AND KNOWS SHE CANNOT TRY TO GET OUT OF BED. SIDERAILS UP X 2 AND CALL LIGHT IN REACH. WILL CONTINUE POC.
--- NOTE | 2018-12-25 07:51 | NUR ---
REC'D IN WALKING ROUNDS LYING IN BED WITH EYES CLOSED. EASILY TO AROUSED WHEN NAME IS CALLED. RESP EVEN AND UNLABORED WITH NO DISTRESS NOTED. CAN EXPRESS NEEDS AND WANTS. NO C/O NOTED OR VOICED. ASSESSMENT COMPLETED. C/L IN REACH AT BEDSIDE.
[2018-12-25 08:41] VITALS: BP 108/75
--- NOTE | 2018-12-25 08:58 | MORECARE ---
CASE MANAGEMENT DISCHARGE SUMMARY PATIENT: JACQUELINE BUSTOS UNIT: [id number] ADM DATE: 12/12/18 AGE: 48 : 70 SEX: F ROOM/BED: D.2100 AUTHOR: AMINA POLK PHYSICIAN: REFERRING PHYSICIAN: RUSSELL GIRON MD DATE OF SERVICE: 12/25/18 Discharge Plan Patient Name: JACQUELINE BUSTOS Facility: [facility]:[place] : 1970 Planned Disposition: Alf Facility Anticipated Discharge Date: 12/17/18 Discharge Date: Expected LOS: 5 Initial Reviewer: [email or web address] Initial Review Date: 12/12/2018 Generated: 12/25/18 9:57 am Comments DCP- Discharge Planning Updated by [email or web address]: Julian Lugo on 12/25/18 7:[address] Patient Name: JACQUELINE BUSTOS Encounter No: [id number] : 1970 Primary Insurance: [facility] MEDICARE SOLUTIONS Anticipated DC Date: 12-17-2018 Planned Disposition: Alf Facility External Planned Provider: [facility], MEDICARE REHAB BED DCP follow-up note: CM FAXED UPDATE TO [facility] VIA [employer] AT [phone]. CM NOTIFIED HERIBERTO, CLINICAL LIAISON FOR [facility], , OF FAXED UPDATE. FOR DISCHARGE, FAX DISCHARGE INFORMATION TO [facility] AT [phone]. NURSE REPORT TO BE CALLED TO [facility] AT [phone]. PT MAY REQUIRE AMBULANCE IF UNABLE TO SIT SAFELY FOR VAN TRANSPORTATION. GILDA Grider MANGTRACEY DCP- Discharge Planning Updated by [id number]: Courtney Betancur on 12/12/18 11:[address] Patient Name: JACQUELINE BUSTOS Admission Status: ER Accout number: [id number] Admission Date: 12-12-2018 : 1970 Admission Diagnosis: Attending: RUSSELL GIRON Current LOS: 1 Anticipated DC Date: 12-17-2018 Planned Disposition: Alf Facility Primary Insurance: [facility] MEDICARE SOLUTIONS Discharge Planning Comments: CM met with patient to complete initial dc planning assessment. Patient sedated on a vent and unable to answer questions. Patient is a resident at [facility]. CM spoke to Arlyn @ [facility] who stated if the patient stays 3 mn that they will bring her back under her medicare benefit for rehab is she needs it. She will require prior authorization as she has [facility] Medicare Solutions. CM will continue to follow and will assist as needed with dc plans/needs. Bicycle Racer: Courtney Betancur RN, [facility] DCPIA - Discharge Planning Initial Assessment Updated by [id number]: Courtney Betancur on 12/12/18 12:07 pm * Is the patient Alert and Oriented? No * How many steps to enter\exit or inside your home? None * PCP Fci MD * Pharmacy [facility] * Preadmission Environment Alf Facility * Facility Name [facility] * ADLs Partial Dependent * Partial ADLs (Assistance needed) Bathing Medication Management * List name and contact numbers for known caregivers / representatives who currently or will assist patient after discharge: Jordan Bustos - [phone] * Can the patient safely return to the preadmission environment? Yes * Has this patient been hospitalized within the prior 30 days at any hospital? No Last DP export: 12/23/18 10:59 a Patient Name: JACQUELINE BUSTOS Page [phone] at 0858 All edits/amendments must be made on the electronic document DICTATION DATE: 12/25/18856 DOUGH PANNER: RAHEEM 12/25/18856 RPT#: [id number] DC DATE: STATUS: ADM IN [facility] [address] [place] [address] END OF REPORT
--- NOTE | 2018-12-25 10:36 | NUR ---
ORDER RECEIVED TO DEFER TANSFUSION TO NEPHROLOGY. CONTACTED DELL AND SHE SAID WOULD WAIT AND GIVE BLOOD DURING DIALYSIS TOMORROW.
[2018-12-25 12:04] VITALS: BP 126/52
[2018-12-25 17:52] VITALS: BP 159/91
--- NOTE | 2018-12-25 19:20 | NUR ---
RESUMING CARE . PT LAYING IN BED A&O BREATH SOUNDS EVEN, RT IJ SHARLA QUINONES IN PLACE, DRSGING TO RT LEG NO C/O OF PAIN OR DISTRESS AT THIS TIME CL IN REACH WILL CONT TO MONITOR
[2018-12-25 22:04] VITALS: BP 127/68
--- NOTE | 2018-12-25 23:30 | NUR ---
WHILE CHANGING PT SHE WENT INTO A SEIZURE, [facility] WAS CALLED , ONCE RESPONDERS WERE THERE PT CAME OUT BUT THEN HAD ANOTHER SEIZURE ,PT WAS GIVEN ATIVAN BY ESTIVEN FROM ICU , PT SLOWLY BECAME STABLE , ESTIVEN SPOKE TO CHERYLE SHE ORDERED FOR TO RESTART PTS KEPPRA, MEDICATION VERIFIED BY PHARMACY AND GIVEN TO PT CL IN REACH WILL CONT TO MONITOR
[2018-12-26 01:17] VITALS: BP 163/89
[2018-12-26 06:15] VITALS: BP 160/90
--- NOTE | 2018-12-26 07:29 | NUR ---
PT UNABLE TO USE THE METANEB FOR BREATHING TREATMENT. PATIENT STATES SHE DOES NOT HAVE THE STRENGTH. GAVE TREATMENT WITH NEBULIZER BUT PATIENT WAS NOT WILLING TO DO TREATMENT FIRST ATTEMPT. PATIENT FINAL DID TREATMENT.
[2018-12-26 08:07] LABS: BASOPHILS 0.2 % (0-2); EOSINOPHILS 0.2 % (0-7); HEMATOCRIT 23.5 % (36.0-48.0); HEMOGLOBIN 7.9 g/dL (12-16); IMMATURE GRANULOCYTES 0.5 % (0-5); LYMPHOCYTES 10.4 % (15-50); MCH 29.5 pg (26.0-34.0); MCHC 33.6 g/dL (31.0-37.0); MCV 87.7 fL (80.0-100.0); MEAN PLATELET VOLUME 12.5 fL (7.4-10.4); MONOCYTES 5.6 % (2-11); NEUTROPHILS 83.1 % (40-80); PLATELET COUNT 237 10x3/uL (130-400); RBC 2.68 10x6/uL (4.00-5.40); RDW 14.8 % (11.5-14.5); WBC 12.4 10x3/uL (4.8-10.8)
[2018-12-26 08:20] LABS: HEP B CORE AB TOTAL Positive (Negative)
[2018-12-26 08:29] LABS: ALBUMIN 1.8 g/dL (3.4-5.0); ALKALINE PHOSPHATASE 92 U/L (46-116); BILIRUBIN - TOTAL 0.39 mg/dL (0.2-1.3); CALC OSMOLALITY 299 mosm/kg (275-300); CALCIUM 7.3 mg/dL (8.5-10.1); CARBON DIOXIDE 23.4 mmol/L (21.0-32.0); CHLORIDE - SERUM 105 mmol/L (98-107); CREATININE - SERUM 6.7 mg/dL (0.6-1.3); GLUCOSE 111 mg/dL (74-106); PROTEIN - SERUM 7.7 g/dL (6.4-8.2); SODIUM 141 mmol/L (136-145); UREA NITROGEN 63 mg/dL (7-18); eGFR NON AFRICAN AMERICAN 7 mL/min (90-120)
[2018-12-26 08:30] LABS: ALT (SGPT) < 6 U/L (10-68)
[2018-12-26 08:33] VITALS: BP 149/65
--- NOTE | 2018-12-26 09:31 | NUR ---
RESTS IN BED ON 1ST STEP MATRESS. RIGHT IJ TRAILYSIS CATH INTACT. NO NEEDS VOICED. CALL LIGHT IN REACH. WILL MONITOR.
--- NOTE | 2018-12-26 09:44 | NUR ---
RESUMING PT CARE, PT LAYING IN BED ALERT BUT NOT TALKING MUCH AT THIS TIME. HER BROTHER IS AT BEDSIDE AT THIS TIME, CALL LIGHT IN REACH. WILL CONTINUE TO MONITOR AND FOLLOW PLAN OF CARE.
[2018-12-26 11:47] VITALS: BP 134/70
[2018-12-26 15:04] VITALS: BP 133/73
--- NOTE | 2018-12-26 15:43 | NUR ---
PT REFUSED HER 1500 TREATMENT ANS STATED SHE WOULD NOT BE DOING ANYMORE. ADVISED I WOULD MAKE A NOTE IN JALEEL CHART AND INFORM HER DOCTOR THAT SHE IS REFUSING.
--- NOTE | 2018-12-26 19:58 | NUR ---
INTRODUCED SELF TO PATIENT, RESP EVEN AND UNLABORED, WATCHING TV QUIETLY.
[2018-12-26 20:00] VITALS: BP 148/85
--- NOTE | 2018-12-26 23:34 | NUR ---
PATIENT HAD CHANGE IN LOC PER PREVIOUS SHIFT, CANNOT ANSWER ANY QUESTIONS ABOUT SELF OR NEEDS. PERRLA @ 2MM, BRISK. HANDGRIPS UNEQUAL (PREVIOUS CVA AFFECTING LEFT SIDE). NOTIFIED CHERYLE ARIAS, ORDERED MRI OF BRAIN W/O CONTRAST STAT.
[2018-12-27] VITALS (7 sets, daily range): BP systolic 115–149; BP diastolic 65–86
--- NOTE | 2018-12-27 00:24 | NUR ---
SPOKE WITH BROTHER OF PATIENT, TRIED CALLING SPOUSE WENT STRAIGHT TO VOICEMAIL. BROTHER ABLE TO ANSWER ALL MRI SCREENING QUESTIONS. NOTIFIED RHONDA MRI CONTRACT CLERK AUTOMOBILE FOR MRI BRAIN SCAN.
--- NOTE | 2018-12-27 03:14 | NUR ---
PATIENT RESTING QUIETLY WITH EYES CLOSED, NO REPORT FROM MRI SCAN YET. HOLDING HEPARIN R/T POTENTIAL BRAIN BLEED. NO S/SX OF DISCOMFORT OR PAIN AT THIS TIME, BED IN LOWEST POSITION, CALL LIGHT IN REACH.
--- NOTE | 2018-12-27 06:27 | NUR ---
ASSISTED CNAS WITH BED BATH AND FULL LINEN CHANGE, NO BM ON THIS SHIFT. QUINONES CARE COMPLETED. BED IN LOWEST POSITION, CALL LIGHT IN REACH.
[2018-12-27 06:30] LABS: ALBUMIN 1.7 g/dL (3.4-5.0); ALKALINE PHOSPHATASE 84 U/L (46-116); CALC OSMOLALITY 302 mosm/kg (275-300); CALCIUM 7.5 mg/dL (8.5-10.1); CARBON DIOXIDE 23.4 mmol/L (21.0-32.0); CHLORIDE - SERUM 108 mmol/L (98-107); CREATININE - SERUM 6.2 mg/dL (0.6-1.3); GLUCOSE 92 mg/dL (74-106); PROTEIN - SERUM 7.6 g/dL (6.4-8.2); SODIUM 143 mmol/L (136-145); UREA NITROGEN 62 mg/dL (7-18); eGFR NON AFRICAN AMERICAN 8 mL/min (90-120)
[2018-12-27 06:32] LABS: ALT (SGPT) < 6 U/L (10-68)
[2018-12-27 06:35] LABS: HEMATOCRIT 23.3 % (36.0-48.0); HEMOGLOBIN 7.9 g/dL (12-16); LYMPHOCYTES 11.1 % (15-50); MCH 30.5 pg (26.0-34.0); MCHC 33.9 g/dL (31.0-37.0); MEAN PLATELET VOLUME 12.5 fL (7.4-10.4); NEUTROPHILS 81.1 % (40-80); PLATELET COUNT 207 10x3/uL (130-400); RBC 2.59 10x6/uL (4.00-5.40); RDW 14.9 % (11.5-14.5); WBC 10.1 10x3/uL (4.8-10.8)
--- NOTE | 2018-12-27 08:30 | NUR ---
RESUMING PT CARE , PT IS LAYING IN BED ALERT AND REQUEST A POPCICLE. FAMILY IS AT BEDSIDE, CALL LIGHT IN REACH. WILL CONTINUE TO MONITOR AND FOLLOW PLAN OF CARE.
--- NOTE | 2018-12-27 09:05 | MORECARE ---
CASE MANAGEMENT DISCHARGE SUMMARY PATIENT: JACQUELINE BUSTOS UNIT: [id number] ADM DATE: 12/12/18 AGE: 48 : 70 SEX: F ROOM/BED: D.1680 AUTHOR: JAM,DOC PHYSICIAN: REFERRING PHYSICIAN: RUSSELL GIRON MD DATE OF SERVICE: 12/27/18 Discharge Plan Patient Name: JACQUELINE BUSTOS Facility: [facility]:[place] : 1970 Planned Disposition: Mcfp Facility Anticipated Discharge Date: 12/17/18 Discharge Date: Expected LOS: 5 Initial Reviewer: [id number] Initial Review Date: 12/12/2018 Generated: 12/27/18 10:05 am Comments DCP- Discharge Planning Updated by [id number]: Julian Lugo on 12/27/18 8:[address] Patient Name: JACQUELINE BUSTOS Encounter No: [id number] : 1970 Primary Insurance: [facility] MEDICARE SOLUTIONS Anticipated DC Date: 12-17-2018 Planned Disposition: Mcfp Facility External Planned Provider: [facility], MEDICARE REHAB BED DCP follow-up note: CM FAXED UPDATE TO [facility] VIA [employer] AT [phone]. FOR DISCHARGE, FAX DISCHARGE INFORMATION TO [facility] AT [phone]. NURSE REPORT TO BE CALLED TO [facility] AT [phone]. PT MAY REQUIRE AMBULANCE IF UNABLE TO SIT SAFELY FOR VAN TRANSPORTATION. Julian Lugo, GILDA MANGEMENT DCP- Discharge Planning Updated by [id number]: Julian Lugo on 12/25/18 7:[address] Patient Name: JACQUELINE BUSTOS Encounter No: [id number] : 1970 Primary Insurance: [facility] MEDICARE SOLUTIONS Anticipated DC Date: 12-17-2018 Planned Disposition: Mcfp Facility External Planned Provider: [facility], MEDICARE REHAB BED DCP follow-up note: CM FAXED UPDATE TO [facility] VIA [employer] AT [phone]. CM NOTIFIED HERIBERTO CLINICAL LIAISON FOR [facility], , OF FAXED UPDATE. FOR DISCHARGE, FAX DISCHARGE INFORMATION TO [facility] AT [phone]. NURSE REPORT TO BE CALLED TO [facility] AT [phone]. PT MAY REQUIRE AMBULANCE IF UNABLE TO SIT SAFELY FOR VAN TRANSPORTATION. Julian Lugo, GILDA MANGEMENT DCP- Discharge Planning Updated by [email or web address]: Courtney Betancur on 12/12/18 11:[address] Patient Name: JACQUELINE BUSTOS Admission Status: ER Accout number: [id number] Admission Date: 12-12-2018 : 1970 Admission Diagnosis: Attending: RUSSELL GIRON Current LOS: 1 Anticipated DC Date: 12-17-2018 Planned Disposition: Mcfp Facility Primary Insurance: [facility] MEDICARE SOLUTIONS Discharge Planning Comments: CM met with patient to complete initial dc planning assessment. Patient sedated on a vent and unable to answer questions. Patient is a resident at [facility]. CM spoke to Arlyn @ [facility] who stated if the patient stays 3 mn that they will bring her back under her medicare benefit for rehab is she needs it. She will require prior authorization as she has [facility] Medicare Solutions. CM will continue to follow and will assist as needed with dc plans/needs. Manager Cancer: Courtney Betancur RN, [facility] DCPIA - Discharge Planning Initial Assessment Updated by [id number]: Courtney Betancur on 12/12/18 12:07 pm * Is the patient Alert and Oriented? No * How many steps to enter\exit or inside your home? None * PCP Shelter MD * Pharmacy Nursing Pharmacy * Preadmission Environment Mcfp Facility * Facility Name [facility] * ADLs Partial Dependent * Partial ADLs (Assistance needed) Bathing Medication Management * List name and contact numbers for known caregivers / representatives who currently or will assist patient after discharge: Jordan Bustos - brother - [phone] * Can the patient safely return to the preadmission environment? Yes * Has this patient been hospitalized within the prior 30 days at any hospital? No Last DP export: 12/25/18 7:57 a Patient Name: JACQUELINE BUSTOS Page 69852 at 0905 All edits/amendments must be made on the electronic document DICTATION DATE: 12/27/18903 SOFT SUGAR CUTTER: RAHEEM 12/27/18903 RPT#: [id number] DC DATE: STATUS: ADM IN [facility] [address] [facility] [place] [place] [address] END OF REPORT
[2018-12-27 09:18] LABS: HEPATITIS BE ANTIGEN Negative (Negative)
--- NOTE | 2018-12-27 10:07 | MORECARE ---
CASE MANAGEMENT DISCHARGE SUMMARY PATIENT: JACQUELINE BUSTOS UNIT: [id number] ADM DATE: 12/12/18 AGE: 48 : 70 SEX: F ROOM/BED: D.4510 AUTHOR: JAM,DOC PHYSICIAN: REFERRING PHYSICIAN: RUSSELL GIRON MD DATE OF SERVICE: 12/27/18 Discharge Plan Patient Name: JACQUELINE BUSTOS Facility: [facility]:[place] : 1970 Planned Disposition: Chcf Facility Anticipated Discharge Date: 12/17/18 Discharge Date: Expected LOS: 5 Initial Reviewer: [id number] Initial Review Date: 12/12/2018 Generated: 12/27/18 11:07 am Comments DCP- Discharge Planning Updated by [id number]: Julian Lugo on 12/27/18 8:[address] Patient Name: JACQUELINE BUSTOS Encounter No: [id number] : 1970 Primary Insurance: [facility] MEDICARE SOLUTIONS Anticipated DC Date: 12-17-2018 Planned Disposition: Chcf Facility External Planned Provider: [facility], MEDICARE REHAB BED DCP follow-up note: CM FAXED UPDATE TO [facility]IA [facility] AT [phone]. FOR DISCHARGE, FAX DISCHARGE INFORMATION TO [facility] AT [phone]. NURSE REPORT TO BE CALLED TO [facility] AT [phone]. PT MAY REQUIRE AMBULANCE IF UNABLE TO SIT SAFELY FOR VAN TRANSPORTATION. Julian Lugo, GILDA MANGEMENT DCP- Discharge Planning Updated by [id number]: Julian Lugo on 12/25/18 7:[address] Patient Name: JACQUELINE BUSTOS Encounter No: [id number] : 1970 Primary Insurance: [facility] MEDICARE SOLUTIONS Anticipated DC Date: 12-17-2018 Planned Disposition: Chcf Facility External Planned Provider: [facility], MEDICARE REHAB BED DCP follow-up note: CM FAXED UPDATE TO [facility] VIA [facility] AT [phone]. CM NOTIFIED HERIBERTO CLINICAL LIAISON FOR [facility], , OF FAXED UPDATE. FOR DISCHARGE, FAX DISCHARGE INFORMATION TO [facility] AT [phone]. NURSE REPORT TO BE CALLED TO [facility] AT [phone]. PT MAY REQUIRE AMBULANCE IF UNABLE TO SIT SAFELY FOR VAN TRANSPORTATION. Julian Lugo, GILDA MANGEMENT DCP- Discharge Planning Updated by [id number]: Courtney Betancur on 12/12/18 11:[address] Patient Name: JACQUELINE BUSTOS Admission Status: ER Accout number: [id number] Admission Date: 12-12-2018 : 1970 Admission Diagnosis: Attending: RUSSELL GIRON Current LOS: 1 Anticipated DC Date: 12-17-2018 Planned Disposition: Chcf Facility Primary Insurance: [facility] MEDICARE SOLUTIONS Discharge Planning Comments: CM met with patient to complete initial dc planning assessment. Patient sedated on a vent and unable to answer questions. Patient is a resident at [facility]. CM spoke to Arlyn @ [facility] who stated if the patient stays 3 mn that they will bring her back under her medicare benefit for rehab is she needs it. She will require prior authorization as she has [facility] Medicare Solutions. CM will continue to follow and will assist as needed with dc plans/needs. Charge Weigher: Courtney Betancur RN, [facility] DCPIA - Discharge Planning Initial Assessment Updated by [email or web address]: Courtney Betancur on 12/12/18 12:07 pm * Is the patient Alert and Oriented? No * How many steps to enter\exit or inside your home? None * PCP Fdc MD * Pharmacy Nursing Pharmacy * Preadmission Environment Chcf Facility * Facility Name [facility] * ADLs Partial Dependent * Partial ADLs (Assistance needed) Bathing Medication Management * List name and contact numbers for known caregivers / representatives who currently or will assist patient after discharge: Jordan Bustos - brother - [phone] * Can the patient safely return to the preadmission environment? Yes * Has this patient been hospitalized within the prior 30 days at any hospital? No Last DP export: 12/27/18 8:05 a Patient Name: JACQUELINE BUSTOS Page [id number] at 1007 All edits/amendments must be made on the electronic document DICTATION DATE: 12/27/18 1006 GLASS SCIENCE ENGINEER: RAHEEM 12/27/18 1006 RPT#: [id number] DC DATE: STATUS: ADM IN [facility] [address] [place] [address] END OF REPORT
--- NOTE | 2018-12-27 10:15 | MORECARE ---
CASE MANAGEMENT DISCHARGE SUMMARY PATIENT: JACQUELINE BUSTOS UNIT: [id number] ADM DATE: 12/12/18 AGE: 48 : 70 SEX: F ROOM/BED: D.6786 AUTHOR: JAMDOC PHYSICIAN: REFERRING PHYSICIAN: RUSSELL GIRON MD DATE OF SERVICE: 12/27/18 Discharge Plan Patient Name: JACQUELINE BUSTOS Facility: [facility]:[place] : 1970 Planned Disposition: Half-Way Facility Anticipated Discharge Date: 12/17/18 Discharge Date: Expected LOS: 5 Initial Reviewer: [id number] Initial Review Date: 12/12/2018 Generated: 12/27/18 11:14 am Comments DCP- Discharge Planning Updated by [email or web address]: Julian Lugo on 12/27/18 9:[address] Patient Name: JACQUELINE BUSTOS Encounter No: [id number] : 1970 Primary Insurance: [facility] MEDICARE SOLUTIONS Anticipated DC Date: 12-17-2018 Planned Disposition: Half-Way Facility External Planned Provider: [facility], MEDICARE REHAB BED DCP follow-up note: CM FAXED UPDATE TO [facility] VIA [employer] AT [phone]. FOR DISCHARGE, FAX DISCHARGE INFORMATION TO [facility] AT [phone]. NURSE REPORT TO BE CALLED TO [facility] AT [phone]. PT MAY REQUIRE AMBULANCE IF UNABLE TO SIT SAFELY FOR VAN TRANSPORTATION. GILDA Grider Appended by Julian Lugo on 12/27/2018 10:07 RN CHILD: CM SPOKE TO ALYSSA OF PHYSICAL THERAPY WHO INFORMED CM THAT PT WILL REQUIRE AMBULANCE TRANSPORT HE IS NOT ABLE TO GET PT UP OUT OF BED. FAX DISCHARGE INFORMATION TO [facility] AT [phone]. NURSE REPORT TO BE CALLED TO [facility] AT [phone]. PT WILL REQUIRE AMBULANCE IF UNABLE TO SIT SAFELY FOR VAN TRANSPORTATION. GILDA Grider DCP- Discharge Planning Updated by [email or web address]: Julian Lugo on 12/25/18 7:[address] Patient Name: JACQUELINE BUSTOS Encounter No: [id number] : 1970 Primary Insurance: [facility] MEDICARE SOLUTIONS Anticipated DC Date: 12-17-2018 Planned Disposition: Half-Way Facility External Planned Provider: [facility], MEDICARE REHAB BED DCP follow-up note: CM FAXED UPDATE TO [facility] VIA [employer] AT [phone]. CM NOTIFIED HERIBERTO, CLINICAL LIAISON FOR [facility], , OF FAXED UPDATE. FOR DISCHARGE, FAX DISCHARGE INFORMATION TO [facility] AT [phone]. NURSE REPORT TO BE CALLED TO [facility] AT [phone]. PT MAY REQUIRE AMBULANCE IF UNABLE TO SIT SAFELY FOR VAN TRANSPORTATION. Julian Lugo, GILDA MANGEMENT DCP- Discharge Planning Updated by [email or web address]: Courtney Betancur on 12/12/18 11:[address] Patient Name: JACQUELINE BUSTOS Admission Status: ER Accout number: [id number] Admission Date: 12-12-2018 : 1970 Admission Diagnosis: Attending: RUSSELL GIRON Current LOS: 1 Anticipated DC Date: 12-17-2018 Planned Disposition: Half-Way Facility Primary Insurance: [facility] MEDICARE SOLUTIONS Discharge Planning Comments: CM met with patient to complete initial dc planning assessment. Patient sedated on a vent and unable to answer questions. Patient is a resident at [facility]. CM spoke to Arlyn @ [facility] who stated if the patient stays 3 mn that they will bring her back under her medicare benefit for rehab is she needs it. She will require prior authorization as she has [facility] Medicare Solutions. CM will continue to follow and will assist as needed with dc plans/needs. Cap Sizer: Courtney Betancur RN, [facility] DCPIA - Discharge Planning Initial Assessment Updated by [id number]: Courtney Betancur on 12/12/18 12:07 pm * Is the patient Alert and Oriented? No * How many steps to enter\exit or inside your home? None * PCP Intermediate MD * Pharmacy Nursing Pharmacy * Preadmission Environment Half-Way Facility * Facility Name [facility] * ADLs Partial Dependent * Partial ADLs (Assistance needed) Bathing Medication Management * List name and contact numbers for known caregivers / representatives who currently or will assist patient after discharge: Jordan Bustos - brother - [phone] * Can the patient safely return to the preadmission environment? Yes * Has this patient been hospitalized within the prior 30 days at any hospital? No Last DP export: 12/27/18 9:07 a Patient Name: JACQUELINE BUSTOS Page 36630 at 1015 All edits/amendments must be made on the electronic document DICTATION DATE: 12/27/18 1014 SILK SPREADER: RAHEEM 12/27/18 1014 RPT#: [id number] DC DATE: STATUS: ADM IN [facility] [address] [place] [address] END OF REPORT
--- NOTE | 2018-12-27 11:06 | NUR ---
REVIEWED ASSESMENT AND AGREE WITH.
--- NOTE | 2018-12-27 12:56 | NUR ---
NEW ORDERS TO TYPE AND SCREEN, THEN INFUSE 1 UNIT OF PRBC. ORDERS NOTED, PT NOTIFIED AND CONSENTS OBTAINED. CALL LIGHT IN REACH, WILL CONTINUE TO MONITOR.
[2018-12-27 14:17] LABS: HEPATITIS BE ANTIBODY Positive (Negative)
--- NOTE | 2018-12-27 19:20 | NUR ---
RESUMING CARE. PT LAYING IN BED A&O , ON RA BREATH SOUNDS EVEN, IV IN RT IJ , DRSGING TO LEFT LEG FROM THIGH DOWN TO FOOT DRSG TO ABDOMEN UNDER FOLDS , QUINONES IN PLACE PAIN C/O OF LEFT SIDE PAIN PT GIVEN NORCO [facility] NIGHT MEDS CALL LIGT IN REACH WILL CONT TO MONITOR
--- NOTE | 2018-12-28 01:28 | NUR ---
VSS. PT RESTING WITH EYES CLOSED. RESP EVEN AND REGULAR. SR UP X2, CALL LIGHT WITHIN REACH.
[2018-12-28 03:55] VITALS: BP 148/72
--- NOTE | 2018-12-28 07:00 | NUR ---
RECEIVED BEDSIDE SHIFT REPORT. ASSUMED CARE OF PATIENT. PATIENT ABLE TO EASILY ANSWER YES/NO QUESTIONS. NURSE GIVING REPORT STATES PATIENT IS VERBALLY COMPROMISED AFTER SEIZURE FEW DAYS AGO. PATIENT NOTED TO HAVE A DELAY WITH SIMPLE YES/NO ANSWERS AND TRYING TO FORM WORDS AND SIMPLE SENTENCES. 1ST STEP OVERLAY PATENT. CALL LIGHT WITHIN REACH. NO DISTRESS. RESP EVEN AND UNLABORED.
[2018-12-28 08:13] LABS: BASOPHILS 0.2 % (0-2); EOSINOPHILS 0.5 % (0-7); IMMATURE GRANULOCYTES 0.7 % (0-5); LYMPHOCYTES 13.5 % (15-50); MCH 29.2 pg (26.0-34.0); MCHC 33.3 g/dL (31.0-37.0); MEAN PLATELET VOLUME 12.2 fL (7.4-10.4); MONOCYTES 6.6 % (2-11); NEUTROPHILS 78.5 % (40-80); PLATELET COUNT 229 10x3/uL (130-400); RBC 2.74 10x6/uL (4.00-5.40); RDW 15.9 % (11.5-14.5); WBC 11.9 10x3/uL (4.8-10.8)
[2018-12-28 08:34] LABS: % SATURATION 16 % (15-55); IRON 22 ug/dl (35-150); TOTAL IRON BIND CAPACITY 130 ug/dl (260-445); UNSAT IRON BIND CAPACITY 108 ug/dl (150-375)
[2018-12-28 08:42] LABS: ALBUMIN 1.7 g/dL (3.4-5.0); ANION GAP 15.9 mmol/L (8-16); BILIRUBIN - TOTAL 0.33 mg/dL (0.2-1.3); CALCIUM 7.3 mg/dL (8.5-10.1); CARBON DIOXIDE 22.8 mmol/L (21.0-32.0); CREATININE - SERUM 5.9 mg/dL (0.6-1.3); POTASSIUM - SERUM 3.7 mmol/L (3.5-5.1); PROTEIN - SERUM 7.5 g/dL (6.4-8.2)
[2018-12-28 08:44] LABS: MCV 87.6 fL (80.0-100.0)
[2018-12-28 09:17] VITALS: BP 148/77
--- NOTE | 2018-12-28 09:24 | NUR ---
MEDICATED FOR PAIN AT THIS TIME. NO DISTRESS.
--- NOTE | 2018-12-28 10:39 | NUR ---
PT REFUSING TX, REFUSED AT 0700 AND 1100. ADVISED PT IT IS DOCTOR ORDERED AND SHE NEEDS TO BE TAKING TX BUT PT JUST KEPT SHAKING HER HEAD AND SAYING NO.
--- NOTE | 2018-12-28 10:59 | NUR ---
RESTING WELL WITH EYES CLOSED. RESP EVEN AND UNLABORED. NO DISTRESS.
[2018-12-28 11:12] VITALS: BP 145/78
--- NOTE | 2018-12-28 12:30 | NUR ---
REPOSITION PATIENT IN BED, CALL LIGHT WITHIN REACH. NO DISTRESS. PATIENT CONTINUES TO HAVE DIFFICULTY PUTTING WORDS TOGETHER TO MAKE NEEDS BE KNOWN. NO CHANGE OF CONDITION THIS SHIFT.
[2018-12-28 15:33] VITALS: BP 147/67
--- NOTE | 2018-12-28 16:20 | NUR ---
WOUND CARE COMPLETED TO LEFT LEG AT THIS TIME. NO DISTRESS. TURNED AND REPOSITIONED. INCONT CARE PROVIDED. CALL LIGHT WITHIN REACH.
--- NOTE | 2018-12-28 16:56 | NUR ---
1642 MEDICATED FOR PAIN. NO DISTRESS. CALL LIGHT WITHIN REACH.
--- NOTE | 2018-12-28 19:36 | NUR ---
RECEIVED REPORT,WILL ASSUME CARE OF PT, PT IS SLEEPING, BED IS LOW, SRX2, CALL LIGHT IN REACH, WILL CONTINUE PLAN OF CARE
[2018-12-28 20:10] VITALS: BP 133/78
--- NOTE | 2018-12-28 22:46 | NUR ---
ASSISTED WITH REPOSITION OF PT, CHANGED RIJ-DRESSING
[2018-12-28 23:55] VITALS: BP 145/79
--- NOTE | 2018-12-29 02:41 | NUR ---
COMPLAINS OF PAIN, GAVE NORCO ORDER, ASSIST TO REPOSITION PT
[2018-12-29 03:55] VITALS: BP 131/80
--- NOTE | 2018-12-29 03:59 | NUR ---
LAB DRAW COMPLETE
[2018-12-29 04:06] LABS: BASOPHILS 0.2 % (0-2); EOSINOPHILS 0.8 % (0-7); IMMATURE GRANULOCYTES 0.7 % (0-5); LYMPHOCYTES 13.4 % (15-50); MCH 29.6 pg (26.0-34.0); MCHC 33.3 g/dL (31.0-37.0); MCV 88.9 fL (80.0-100.0); MEAN PLATELET VOLUME 11.1 fL (7.4-10.4); MONOCYTES 7.9 % (2-11); PLATELET COUNT 210 10x3/uL (130-400); RDW 15.6 % (11.5-14.5); WBC 9.7 10x3/uL (4.8-10.8)
[2018-12-29 04:18] LABS: ALBUMIN 1.7 g/dL (3.4-5.0); ANION GAP 15.1 mmol/L (8-16); BILIRUBIN - TOTAL 0.25 mg/dL (0.2-1.3); CALCIUM 7.5 mg/dL (8.5-10.1); CARBON DIOXIDE 23.4 mmol/L (21.0-32.0); CREATININE - SERUM 5.1 mg/dL (0.6-1.3); POTASSIUM - SERUM 3.5 mmol/L (3.5-5.1); PROTEIN - SERUM 7.7 g/dL (6.4-8.2)
--- NOTE | 2018-12-29 04:43 | NUR ---
ASSESSMENT PER ELEVATOR CONSTRUCTOR HELPER REVIEWED AND THIS RN IN AGREEMENT. MONITOR AND CPOC.
--- NOTE | 2018-12-29 07:05 | NUR ---
RECEIVED BEDSIDE SHIFT REPORT. ASSUMED CARE OF PATIENT. PATIENT COMPLAINING OF PAIN TO LEGS. CHECKED EMAR AND PATIENT ABLE TO HAVE NORCO AT THIS TIME. 1ST STEP OVERLAY PATENT. CALL LIGHT WITHIN REACH. PATIENT ABLE TO SPEAK COMPLETE SENTENCES THIS AM, WHICH IS AN IMPROVMENT FROM YESTERDAY! PATIENT ABLE TO COMPLETELY MAKE HER NEEDS BE KNOWN! PATIENT AND THIS RELAY TESTER HAPPY PATIENT SPEECH IS IMPROVING.
--- NOTE | 2018-12-29 07:28 | NUR ---
MEDICATED FOR PAIN AT THIS TIME. NO DISTRESS.
[2018-12-29 08:50] VITALS: BP 144/80
--- NOTE | 2018-12-29 09:30 | NUR ---
PATIENT WITH MALE VISITOR AT BEDSIDE. NO DISTRESS. CALL LIGHT WITHIN REACH.
[2018-12-29 12:21] VITALS: BP 142/77
--- NOTE | 2018-12-29 12:38 | NUR ---
PATIENT HOLLORING OUT FROM ROOM. ENTERED ROOM AND PATIENT HAS CALL LIGHT LYING ON HER LAP. PATIENT HOLDING CELL PHONE IN HER HAND AND STATES SHE CAN'T GET HER PHONE PROGRAMMED. ENCOURAGED PATIENT TO USE HER CALL LIGHT INSTEAD OF HOLLORING FROM HER ROOM. SPEECH CONTINUES TO IMPROVING, ABLE TO MAKE COMPLETE SENTENCES. NO DISTRESS.
[2018-12-29 15:48] VITALS: BP 132/76
--- NOTE | 2018-12-29 16:37 | NUR ---
WOUND CARE TO ABD AND LEFT LEG COMPLETE ORDERD AT THIS TIME. TURNED AND REPOSITIONED. CALL LIGHT WITHIN REACH. NO DISTRESS. MEDICATED WITH NORCO PRIOR TO WOUND CARE.
--- NOTE | 2018-12-29 19:30 | NUR ---
RECEIVED REPORT,WILL ASSUME CARE OF PT, ASSISTED PT WITH TURNING TO R.SIDE, FAMILY IN ROOM, BED IS LOW, SRX2, CALL LIGHT IN REACH, WILL CONTINUE PLAN OF CARE
[2018-12-29 19:55] VITALS: BP 133/78
--- NOTE | 2018-12-29 20:34 | NUR ---
GIVING PM MEDS, PT ASK FOR PAIN MEDS, GAVE NORCO ORDER
[2018-12-29 23:50] VITALS: BP 136/76
[2018-12-30 03:43] VITALS: BP 132/79
--- NOTE | 2018-12-30 04:04 | NUR ---
REVIEW AND AGREEMENT WITH ASSESSMENT PER MANAGEMENT SME. PT RESTING IN BED WITH NO DISTRESS. MONITOR AND CPOC.
--- NOTE | 2018-12-30 04:31 | NUR ---
LAB DRAW COMPLETE
[2018-12-30 04:32] LABS: BASOPHILS 0.4 % (0-2); EOSINOPHILS 1.1 % (0-7); HEMATOCRIT 25.6 % (36.0-48.0); HEMOGLOBIN 8.2 g/dL (12-16); IMMATURE GRANULOCYTES 1.3 % (0-5); LYMPHOCYTES 17.6 % (15-50); MCH 28.8 pg (26.0-34.0); MCV 89.8 fL (80.0-100.0); MEAN PLATELET VOLUME 11.4 fL (7.4-10.4); MONOCYTES 7.6 % (2-11); PLATELET COUNT 224 10x3/uL (130-400); RBC 2.85 10x6/uL (4.00-5.40); RDW 15.7 % (11.5-14.5); WBC 9.9 10x3/uL (4.8-10.8)
[2018-12-30 04:50] LABS: ALBUMIN 1.7 g/dL (3.4-5.0); ANION GAP 15.4 mmol/L (8-16); BILIRUBIN - TOTAL 0.26 mg/dL (0.2-1.3); CALCIUM 7.8 mg/dL (8.5-10.1); CARBON DIOXIDE 22.3 mmol/L (21.0-32.0); CREATININE - SERUM 4.3 mg/dL (0.6-1.3); POTASSIUM - SERUM 3.7 mmol/L (3.5-5.1); PROTEIN - SERUM 7.8 g/dL (6.4-8.2)
--- NOTE | 2018-12-30 07:42 | NUR ---
AM ROUNDS- PT IN BED, A/O X4, RESP EVEN AND NONLABORED ON RA. RT IJ TRIALYSIS SL, DRESSING CDI WITH BIOPATCH IN PLACE. DRESSING TO LT LEG AND FOOT CDI. QUINONES DRAINING YELLOW URINE TO GRAVITY. PT DENIES ANY NEEDS AT THIS TIME. STATES THAT SHE IS READY TO GO HOME. CALL LIGHT IN REACH, NAD NOTED, WILL CONTINUE TO MONITOR.
[2018-12-30 08:27] VITALS: BP 152/74
--- NOTE | 2018-12-30 08:51 | NUR ---
AM MEDS GIVEN AT THIS TIME. EXCEPT FOR COUGH MED, PT REFUSED TO TAKE IT. ALSO GAVE NORCO FOR PAIN LEVEL O F 06/14. REPOSITIONED PT IN BED, WITH CNAS HELP. PT DENIES ANY OTHER NEEDS AT THIS TIME. CALL LIGHT IN REACH, NAD NOTED, WILL CONTINUE TO MONITOR.
--- NOTE | 2018-12-30 09:42 | MORECARE ---
CASE MANAGEMENT DISCHARGE SUMMARY PATIENT: JACQUELINE BUSTOS UNIT: [id number] ADM DATE: 12/12/18 AGE: 48 : 70 SEX: F ROOM/BED: D.4294 AUTHOR: JAMDOC PHYSICIAN: REFERRING PHYSICIAN: RUSSELL GIRON MD DATE OF SERVICE: 12/30/18 Discharge Plan Patient Name: JACQUELINE BUSTOS Facility: [facility]:[place] : 1970 Planned Disposition: Fdc Facility Anticipated Discharge Date: 12/30/18 Discharge Date: Expected LOS: 18 Initial Reviewer: [email or web address] Initial Review Date: 12/12/2018 Generated: 12/30/18 10:42 am Comments DCP- Discharge Planning Updated by [email or web address]: Julian Lugo on 12/27/18 9:[address] Patient Name: JACQUELINE BUSTOS Encounter No: [id number] : 1970 Primary Insurance: [employer] MEDICARE SOLUTIONS Anticipated DC Date: 12-17-2018 Planned Disposition: Fdc Facility External Planned Provider: [facility], MEDICARE REHAB BED DCP follow-up note: CM FAXED UPDATE TO [facility] VIA [employer] AT [phone]. FOR DISCHARGE, FAX DISCHARGE INFORMATION TO [facility] AT [phone]. NURSE REPORT TO BE CALLED TO [facility] AT [phone]. PT MAY REQUIRE AMBULANCE IF UNABLE TO SIT SAFELY FOR VAN TRANSPORTATION. GILDA Grider Appended by Julian Lugo on 12/27/2018 10:07 A AUXILIARY: CM SPOKE TO ALYSSA OF PHYSICAL THERAPY WHO INFORMED CM THAT PT WILL REQUIRE AMBULANCE TRANSPORT HE IS NOT ABLE TO GET PT UP OUT OF BED. FAX DISCHARGE INFORMATION TO [facility] AT [phone]. NURSE REPORT TO BE CALLED TO [facility] AT [phone]. PT WILL REQUIRE AMBULANCE IF UNABLE TO SIT SAFELY FOR VAN TRANSPORTATION. GILDA Grider DCP- Discharge Planning Updated by [id number]: Julian Lugo on 12/25/18 7:[address] Patient Name: JACQUELINE BUSTOS Encounter No: [id number] : 1970 Primary Insurance: [facility] MEDICARE SOLUTIONS Anticipated DC Date: 12-17-2018 Planned Disposition: Fdc Facility External Planned Provider: [facility], MEDICARE REHAB BED DCP follow-up note: CM FAXED UPDATE TO [facility] VIA [employer] AT [phone]. CM NOTIFIED HERIBERTO, CLINICAL LIAISON FOR [facility], , OF FAXED UPDATE. FOR DISCHARGE, FAX DISCHARGE INFORMATION TO [facility] AT [phone]. NURSE REPORT TO BE CALLED TO [facility] AT [phone]. PT MAY REQUIRE AMBULANCE IF UNABLE TO SIT SAFELY FOR VAN TRANSPORTATION. Julian Lugo, GILDA MANGEMENT DCP- Discharge Planning Updated by [id number]: Courtney Betancur on 12/12/18 11:[address] Patient Name: JACQUELINE BUSTOS Admission Status: ER Accout number: [id number] Admission Date: 12-12-2018 : 1970 Admission Diagnosis: Attending: RUSSELL GIRON Current LOS: 1 Anticipated DC Date: 12-17-2018 Planned Disposition: Fdc Facility Primary Insurance: [facility] MEDICARE SOLUTIONS Discharge Planning Comments: CM met with patient to complete initial dc planning assessment. Patient sedated on a vent and unable to answer questions. Patient is a resident at [facility]. CM spoke to Arlyn @ [facility] who stated if the patient stays 3 mn that they will bring her back under her medicare benefit for rehab is she needs it. She will require prior authorization as she has [facility] Medicare Solutions. CM will continue to follow and will assist as needed with dc plans/needs. Dragger Out: Courtney Betancur RN, [facility] DCPIA - Discharge Planning Initial Assessment Updated by [email or web address]: Courtney Betancur on 12/12/18 12:07 pm * Is the patient Alert and Oriented? No * How many steps to enter\exit or inside your home? None * PCP Usp MD * Pharmacy Nursing Pharmacy * Preadmission Environment Fdc Facility * Facility Name [facility] * ADLs Partial Dependent * Partial ADLs (Assistance needed) Bathing Medication Management * List name and contact numbers for known caregivers / representatives who currently or will assist patient after discharge: Jordan Bustos - brother - [phone] * Can the patient safely return to the preadmission environment? Yes * Has this patient been hospitalized within the prior 30 days at any hospital? No Last DP export: 12/27/18 9:14 a Patient Name: JACQUELINE BUSTOS Page [id number] at 0942 All edits/amendments must be made on the electronic document DICTATION DATE: 12/30/18940 RAILWAY SIGNAL TECHNICIAN: RAHEEM 12/30/18940 RPT#: [id number] DC DATE: STATUS: ADM IN [facility] [address] [place] [address] END OF REPORT
--- NOTE | 2018-12-30 10:12 | MORECARE ---
CASE MANAGEMENT DISCHARGE SUMMARY PATIENT: JACQUELINE BUSTOS UNIT: [id number] ADM DATE: 12/12/18 AGE: 48 : 70 SEX: F ROOM/BED: D.210 AUTHOR: AMINA POLK PHYSICIAN: REFERRING PHYSICIAN: RUSSELL GIRON MD DATE OF SERVICE: 12/30/18 Discharge Plan Patient Name: JACQUELINE BUSTOS Facility: [facility]:[place] : 1970 Planned Disposition: Halfway Facility Anticipated Discharge Date: 12/30/18 Discharge Date: Expected LOS: 18 Initial Reviewer: [id number] Initial Review Date: 12/12/2018 Generated: 12/30/18 11:11 am Comments DCP- Discharge Planning Updated by [id number]: Julian Lugo on 12/30/18 9:[address] Patient Name: JACQUELINE BUSTOS Encounter No: [id number] : 1970 Primary Insurance: [facility] MEDICARE SOLUTIONS Anticipated DC Date: 12-30-2018 Planned Disposition: Halfway Facility External Planned Provider:[facility], MEDICARE REHAB BED DCP follow-up note: CM FAXED UPDATE TO [facility] VIA [employer] AT [phone]. CM NOTIFIED PT IN ROOM, PT REPORTS WANTING TO RETURN TO [facility] TODAY. PT NOTIFIED HER BROTHER. IMPORTANT MESSAGE FROM MEDICARE PROVIDED AND EXPLAINED. CM WAITING ON INSURANCE AUTHORIZATION FOR SKILLED RETURN. FAX DISCHARGE INFORMATION TO [facility] AT [phone]. NURSE REPORT TO BE CALLED TO [facility] AT [phone]. PT WILL REQUIRE AMBULANCE TRANSPORT SHE IS UNABLE TO SIT SAFELY FOR VAN TRANSPORTATION PER ALYSSA OF PHYSICAL THERAPY. Julian Lugo, GILDA MANGEMENT DCP- Discharge Planning Updated by [id number]: Julian Lugo on 12/27/18 9:[address] Patient Name: JACQUELINE BUSTOS Encounter No: [id number] : 1970 Primary Insurance: [facility] MEDICARE SOLUTIONS Anticipated DC Date: 12-17-2018 Planned Disposition: Halfway Facility External Planned Provider: [facility], MEDICARE REHAB BED DCP follow-up note: CM FAXED UPDATE TO [facility] [employer]IA [employer] AT [phone]. FOR DISCHARGE, FAX DISCHARGE INFORMATION TO [facility] AT [phone]. NURSE REPORT TO BE CALLED TO [facility] AT [phone]. PT MAY REQUIRE AMBULANCE IF UNABLE TO SIT SAFELY FOR VAN TRANSPORTATION. Julian Lugo GILDA MARTELL Appended by Julian Lugo on 12/27/2018 10:07 COMMUNITY SERVICE PATROL OFFICER: CM SPOKE TO ALYSSA OF PHYSICAL THERAPY WHO INFORMED CM THAT PT WILL REQUIRE AMBULANCE TRANSPORT HE IS NOT ABLE TO GET PT UP OUT OF BED. FAX DISCHARGE INFORMATION TO [facility] AT [phone]. NURSE REPORT TO BE CALLED TO [facility] AT [phone]. PT WILL REQUIRE AMBULANCE IF UNABLE TO SIT SAFELY FOR VAN TRANSPORTATION. Julian BrittneyGILDA DCP- Discharge Planning Updated by [id number]: Julian Lugo on 12/25/18 7:[address] Patient Name: JACQUELINE BUSTOS Encounter No: [id number] : 1970 Primary Insurance: [facility] MEDICARE SOLUTIONS Anticipated DC Date: 12-17-2018 Planned Disposition: Halfway Facility External Planned Provider: [facility], MEDICARE REHAB BED DCP follow-up note: CM FAXED UPDATE TO [facility] [employer]IA [employer] AT [phone]. CM NOTIFIED HERIBERTO, CLINICAL LIAISON FOR [facility], , OF FAXED UPDATE. FOR DISCHARGE, FAX DISCHARGE INFORMATION TO [facility] AT [phone]. NURSE REPORT TO BE CALLED TO [facility] AT [phone]. PT MAY REQUIRE AMBULANCE IF UNABLE TO SIT SAFELY FOR VAN TRANSPORTATION. Julian LugoGILDA DCP- Discharge Planning Updated by [email or web address]: Courtney Betancur on 12/12/18 11:[address] Patient Name: JACQUELINE BUSTOS Admission Status: ER Accout number: [id number] Admission Date: 12-12-2018 : 1970 Admission Diagnosis: Attending: RUSSELL GIRON Current LOS: 1 Anticipated DC Date: 12-17-2018 Planned Disposition: Halfway Facility Primary Insurance: [facility] MEDICARE SOLUTIONS Discharge Planning Comments: CM met with patient to complete initial dc planning assessment. Patient sedated on a vent and unable to answer questions. Patient is a resident at [facility]. CM spoke to Arlyn @ [facility] who stated if the patient stays 3 mn that they will bring her back under her medicare benefit for rehab is she needs it. She will require prior authorization as she has [facility] Medicare Solutions. CM will continue to follow and will assist as needed with dc plans/needs. Operations Architect: Courtney Betancur RN, [facility] DCPIA - Discharge Planning Initial Assessment Updated by [id number]: Courtney Betancur on 12/12/18 12:07 pm * Is the patient Alert and Oriented? No * How many steps to enter\exit or inside your home? None * PCP Mcc MD * Pharmacy [facility] * Preadmission Environment Halfway Facility * Facility Name [facility] * ADLs Partial Dependent * Partial ADLs (Assistance needed) Bathing Medication Management * List name and contact numbers for known caregivers / representatives who currently or will assist patient after discharge: [facility] - [phone] * Can the patient safely return to the preadmission environment? Yes * Has this patient been hospitalized within the prior 30 days at any hospital? No Coverage Notice Reviewer: [id number] Dinora Lugo Notice Issued Date-Time: 12/30/2018 9:50 Notice Type: IM Discharge Notice Notice Delivered To: Patient Relationship to Patient: Break Out Worker Name: Delivery Method: HAND - Hand Delivered Claudia Days: Prior Verbal Notification: Recipient Understood Notice: Yes Recipient Signature: Yes Med Rec Note Co-signed by Attending: Coverage Notice Comment: Last DP export: 12/30/18 8:42 a Patient Name: JACQUELINE BUSTOS Page [phone] at 1012 All edits/amendments must be made on the electronic document DICTATION DATE: 12/30/18 1011 INFORMATION ASSURANCE MANAGER: RAHEEM 12/30/18 1011 RPT#: [id number] CHRISTOPHER DATE: STATUS: ADM IN [facility] [address] [place] [address] END OF REPORT
[2018-12-30] MEDS ORDERED: ASPIRIN325 MG NG (10:28)
[2018-12-30 12:13] LABS: FOLATE (FOLIC ACID) - SERUM 8.9 ng/mL (>3.0)
--- NOTE | 2018-12-30 12:25 | NUR ---
QUINONES CATHETER REMOVED AT THIS TIME. DRESSING CHANGE TO LT LOWER LEG DONE AT THIS TIME. STILL WAITING TO SEE IF PT IS GOING TO BE ACCEPTED TO [facility]. PT DENIES ANY NEEDS AT THIS TIME, CALL BELLE MONTOYA,NAD NOTED, WILL CONTINUE TO MONITOR.
[2018-12-30 13:34] VITALS: BP 139/83
--- NOTE | 2018-12-30 13:45 | MORECARE ---
CASE MANAGEMENT DISCHARGE SUMMARY PATIENT: JACQUELINE BUSTOS UNIT: [id number] ADM DATE: 12/12/18 AGE: 48 : 70 SEX: F ROOM/BED: D.6845 AUTHOR: JAM,DOC PHYSICIAN: REFERRING PHYSICIAN: RUSSELL GIRON MD DATE OF SERVICE: 12/30/18 Discharge Plan Patient Name: JACQUELINE BUSTOS Facility: [facility]:[place] : 1970 Planned Disposition: Fdc Facility Anticipated Discharge Date: 12/30/18 Discharge Date: Expected LOS: 18 Initial Reviewer: [id number] Initial Review Date: 12/12/2018 Generated: 12/30/18 2:45 pm Comments DCP- Discharge Planning Updated by [id number]: Julian Lugo on 12/30/18 12:[address] Patient Name: JACQUELINE BUSTOS Encounter No: [id number] : 1970 Primary Insurance: [facility] MEDICARE SOLUTIONS Anticipated DC Date: 12-30-2018 Planned Disposition: Fdc Facility External Planned Provider:[facility], MEDICARE REHAB BED DCP follow-up note: CM FAXED UPDATE TO [facility] VIA [employer] AT [phone]. CM NOTIFIED PT IN ROOM, PT REPORTS WANTING TO RETURN TO [facility] TODAY. PT NOTIFIED HER BROTHER. IMPORTANT MESSAGE FROM MEDICARE PROVIDED AND EXPLAINED. CM WAITING ON INSURANCE AUTHORIZATION FOR SKILLED RETURN. FAX DISCHARGE INFORMATION TO [facility] AT [phone]. NURSE REPORT TO BE CALLED TO [facility] AT [phone]. PT WILL REQUIRE AMBULANCE TRANSPORT SHE IS UNABLE TO SIT SAFELY FOR VAN TRANSPORTATION PER ALYSSA OF PHYSICAL THERAPY. Julian Lugo, CASE MANGEMENT Appended by Julian Lugo on 12/30/2018 13:39 SHEET METAL DUCT INSTALLER: CM FAXED DISCHARGE INFORMATION TO [facility] AT [phone]. CM WAITING ON INSURANCE AUTHORIZATION FOR SKILLED RETURN. NURSE REPORT TO BE CALLED TO [facility] AT [phone]. PT WILL REQUIRE AMBULANCE TRANSPORT SHE IS UNABLE TO SIT SAFELY FOR VAN TRANSPORTATION PER ALYSSA OF PHYSICAL THERAPY. GILDA Grider MANGEMENT DCP- Discharge Planning Updated by [email or web address]: Julian Lugo on 12/27/18 9:[address] Patient Name: JACQUELINE BUSTOS Encounter No: [id number] : 1970 Primary Insurance: [facility] MEDICARE SOLUTIONS Anticipated DC Date: 12-17-2018 Planned Disposition: Fdc Facility External Planned Provider: [facility], MEDICARE REHAB BED DCP follow-up note: CM FAXED UPDATE TO [facility] VIA [employer] AT [phone]. FOR DISCHARGE, FAX DISCHARGE INFORMATION TO [facility] AT [phone]. NURSE REPORT TO BE CALLED TO [facility] AT [phone]. PT MAY REQUIRE AMBULANCE IF UNABLE TO SIT SAFELY FOR VAN TRANSPORTATION. GILDA GriderEMENT Appended by Julian Lugo on 12/27/2018 10:07 SHEET METAL DUCT INSTALLER: CM SPOKE TO ALYSSA OF PHYSICAL THERAPY WHO INFORMED CM THAT PT WILL REQUIRE AMBULANCE TRANSPORT HE IS NOT ABLE TO GET PT UP OUT OF BED. FAX DISCHARGE INFORMATION TO [facility] AT [phone]. NURSE REPORT TO BE CALLED TO [facility] AT [phone]. PT WILL REQUIRE AMBULANCE IF UNABLE TO SIT SAFELY FOR VAN TRANSPORTATION. GILDA Grider MANGEMENT DCP- Discharge Planning Updated by [email or web address]: Julian Lugo on 12/25/18 7:[address] Patient Name: JACQUELINE BUSTOS Encounter No: [id number] : 1970 Primary Insurance: [facility] MEDICARE SOLUTIONS Anticipated DC Date: 12-17-2018 Planned Disposition: Fdc Facility External Planned Provider: [facility], MEDICARE REHAB BED DCP follow-up note: CM FAXED UPDATE TO [facility] VIA [employer] AT [phone]. CM NOTIFIED HERIBERTO, CLINICAL LIAISON FOR [facility], , OF FAXED UPDATE. FOR DISCHARGE, FAX DISCHARGE INFORMATION TO [facility] AT [phone]. NURSE REPORT TO BE CALLED TO [facility] AT [phone]. PT MAY REQUIRE AMBULANCE IF UNABLE TO SIT SAFELY FOR VAN TRANSPORTATION. GILDA Grider MANGEMENT DCP- Discharge Planning Updated by [email or web address]: Courtney Betancur on 12/12/18 11:[address] Patient Name: JACQUELINE BUSTOS Admission Status: ER Accout number: [id number] Admission Date: 12-12-2018 : 1970 Admission Diagnosis: Attending: RUSSELL GIRON Current LOS: 1 Anticipated DC Date: 12-17-2018 Planned Disposition: Fdc Facility Primary Insurance: [facility] MEDICARE SOLUTIONS Discharge Planning Comments: CM met with patient to complete initial dc planning assessment. Patient sedated on a vent and unable to answer questions. Patient is a resident at [facility]. CM spoke to Arlyn @ [facility] who stated if the patient stays 3 mn that they will bring her back under her medicare benefit for rehab is she needs it. She will require prior authorization as she has [facility] Medicare Solutions. CM will continue to follow and will assist as needed with dc plans/needs. Security System Analyst: Courtney Betancur RN, [facility] DCPIA - Discharge Planning Initial Assessment Updated by [email or web address]: Courtney Betancur on 12/12/18 12:07 pm * Is the patient Alert and Oriented? No * How many steps to enter\exit or inside your home? None * PCP Correction MD * Pharmacy Nursing Pharmacy * Preadmission Environment Fdc Facility * Facility Name [facility] * ADLs Partial Dependent * Partial ADLs (Assistance needed) Bathing Medication Management * List name and contact numbers for known caregivers / representatives who currently or will assist patient after discharge: [facility]os [facility] - [phone] * Can the patient safely return to the preadmission environment? Yes * Has this patient been hospitalized within the prior 30 days at any hospital? No Coverage Notice Reviewer: [id number] Dinora Lugo Notice Issued Date-Time: 12/30/2018 9:50 Notice Type: IM Discharge Notice Notice Delivered To: Patient Relationship to Patient: Glue Machine Operator Name: Delivery Method: HAND - Hand Delivered Claudia Days: Prior Verbal Notification: Recipient Understood Notice: Yes Recipient Signature: Yes Med Rec Note Co-signed by Attending: Coverage Notice Comment: Last DP export: 12/30/18 9:12 a Patient Name: JACQUELINE BUSTOS Page 45684 at 1345 All edits/amendments must be made on the electronic document DICTATION DATE: 12/30/18 1346 SUSTAINABILITY OFFICER: RAHEEM 12/30/18 1344 RPT#: [id number] DC DATE: STATUS: ADM IN [facility] [address] [place] [address] END OF REPORT
--- NOTE | 2018-12-30 14:21 | NUR ---
PROVIDED VERBAL AND WRITTEN DISCHAGE TEACHING TO PT WHO VERBALIZED UNDERSTANDING REGARDING TEACHING. D/C RT IJ TRIALYSIS. APPLIED PRESSURE FOR 5MIN AND INFORMED PT TO LAY FLAT FOR 15MIN. ALSO GAVE NORCO FOR PAIN LEVEL OF 8/10.
--- NOTE | 2018-12-30 14:38 | NUR ---
CALLED [facility] AND GAVE REPORT TO RHONDA ARIAS. [facility] WILL BE HERE IN THE NEXT 30MIN.
--- NOTE | 2018-12-30 14:45 | MORECARE ---
CASE MANAGEMENT DISCHARGE SUMMARY PATIENT: JACQUELINE BUSTOS UNIT: [id number] ADM DATE: 12/12/18 AGE: 48 : 70 SEX: F ROOM/BED: D.6656 AUTHOR: JAM,DOC PHYSICIAN: REFERRING PHYSICIAN: RUSSELL GIRON MD DATE OF SERVICE: 12/30/18 Discharge Plan Patient Name: JACQUELINE BUSTOS Facility: [facility]:[place] : 1970 Planned Disposition: Usp Facility Anticipated Discharge Date: 12/30/18 Discharge Date: Expected LOS: 18 Initial Reviewer: [id number] Initial Review Date: 12/12/2018 Generated: 12/30/18 3:44 pm Comments DCP- Discharge Planning Updated by [email or web address]: Julian Lugo on 12/30/18 1:[address] Patient Name: JACQUELINE BUSTOS Encounter No: [id number] : 1970 Primary Insurance: [facility] MEDICARE SOLUTIONS Anticipated DC Date: 12-30-2018 Planned Disposition: Usp Facility External Planned Provider:[facility], MEDICARE REHAB BED DCP follow-up note: CM FAXED UPDATE TO [facility] VIA [employer] AT [phone]. CM NOTIFIED PT IN ROOM, PT REPORTS WANTING TO RETURN TO [facility] TODAY. PT NOTIFIED HER BROTHER. IMPORTANT MESSAGE FROM MEDICARE PROVIDED AND EXPLAINED. CM WAITING ON INSURANCE AUTHORIZATION FOR SKILLED RETURN. FAX DISCHARGE INFORMATION TO [facility] AT [phone]. NURSE REPORT TO BE CALLED TO [facility] AT [phone]. PT WILL REQUIRE AMBULANCE TRANSPORT SHE IS UNABLE TO SIT SAFELY FOR VAN TRANSPORTATION PER ALYSSA OF PHYSICAL THERAPY. Julian Lugo, CASE MANGEMENT Appended by Julian Lugo on 12/30/2018 13:39 CABINET MAKER: CM FAXED DISCHARGE INFORMATION TO [facility] AT [phone]. CM WAITING ON INSURANCE AUTHORIZATION FOR SKILLED RETURN. NURSE REPORT TO BE CALLED TO [facility] AT [phone]. PT WILL REQUIRE AMBULANCE TRANSPORT SHE IS UNABLE TO SIT SAFELY FOR VAN TRANSPORTATION PER ALYSSA OF PHYSICAL THERAPY. Julian Lugo CASE MANGEMENT Appended by Julian Lugo on 12/30/2018 14:38 CABINET MAKER: CM RECEIVED INSURANCE AUTHORIZATION FOR SKILLED RETURN PER HERIBERTO OF [facility]. TEACHER VOCATIONAL TRAINING NURSE NOTIFIED. NURSE REPORT TO BE CALLED TO [facility] AT [phone]. PT WILL REQUIRE AMBULANCE TRANSPORT SHE IS UNABLE TO SIT SAFELY FOR VAN TRANSPORTATION PER ALYSSA [facility] PHYSICAL THERAPY. GILDA Grider DCP- Discharge Planning Updated by [email or web address]: Julian Lugo on 12/27/18 9:[address] Patient Name: JACQUELINE BUSTOS Encounter No: [id number] : 1970 Primary Insurance: [facility] MEDICARE SOLUTIONS Anticipated DC Date: 12-17-2018 Planned Disposition: Usp Facility External Planned Provider: [facility], MEDICARE REHAB BED DCP follow-up note: CM FAXED UPDATE TO [facility] VIA [employer] AT [phone]. FOR DISCHARGE, FAX DISCHARGE INFORMATION TO [facility] AT [phone]. NURSE REPORT TO BE CALLED TO [facility] AT [phone]. PT MAY REQUIRE AMBULANCE IF UNABLE TO SIT SAFELY FOR VAN TRANSPORTATION. Julian GILDA Lugo Appended by Julian Lugo on 12/27/2018 10:07 CABINET MAKER: CM SPOKE TO ALYSSA OF PHYSICAL THERAPY WHO INFORMED CM THAT PT WILL REQUIRE AMBULANCE TRANSPORT HE IS NOT ABLE TO GET PT UP OUT OF BED. FAX DISCHARGE INFORMATION TO [facility] AT [phone]. NURSE REPORT TO BE CALLED TO [facility] AT [phone]. PT WILL REQUIRE AMBULANCE IF UNABLE TO SIT SAFELY FOR VAN TRANSPORTATION. Julian GILDA Lugo DCP- Discharge Planning Updated by [id number]: Julian Lugo on 12/25/18 7:[address] Patient Name: JACQUELINE BUSTOS Encounter No: [id number] : 1970 Primary Insurance: [facility] MEDICARE SOLUTIONS Anticipated DC Date: 12-17-2018 Planned Disposition: Usp Facility External Planned Provider: [facility], MEDICARE REHAB BED DCP follow-up note: CM FAXED UPDATE TO [facility] [employer]IA [employer] AT [phone]. CM NOTIFIED HERIBERTO, CLINICAL LIAISON FOR [facility], , OF FAXED UPDATE. FOR DISCHARGE, FAX DISCHARGE INFORMATION TO [facility] AT [phone]. NURSE REPORT TO BE CALLED TO [facility] AT [phone]. PT MAY REQUIRE AMBULANCE IF UNABLE TO SIT SAFELY FOR VAN TRANSPORTATION. Julian Lugo, GILDA MANGEMENT DCP- Discharge Planning Updated by [email or web address]: Courtney Betancur on 12/12/18 11:[address] Patient Name: JACQUELINE BUSTOS Admission Status: ER Accout number: [id number] Admission Date: 12-12-2018 : 1970 Admission Diagnosis: Attending: RUSSELL GIRON Current LOS: 1 Anticipated DC Date: 12-17-2018 Planned Disposition: Usp Facility Primary Insurance: [facility] MEDICARE SOLUTIONS Discharge Planning Comments: CM met with patient to complete initial dc planning assessment. Patient sedated on a vent and unable to answer questions. Patient is a resident at [facility]. CM spoke to Arlyn @ [facility] who stated if the patient stays 3 mn that they will bring her back under her medicare benefit for rehab is she needs it. She will require prior authorization as she has [facility] Medicare Solutions. CM will continue to follow and will assist as needed with dc plans/needs. Retirement Administrator: Courtney Betancur RN, [facility] DCPIA - Discharge Planning Initial Assessment Updated by [id number]: Courtney Betancur on 12/12/18 12:07 pm * Is the patient Alert and Oriented? No * How many steps to enter\exit or inside your home? None * PCP Snf MD * Pharmacy Nursing Pharmacy * Preadmission Environment Usp Facility * Facility Name [facility] * ADLs Partial Dependent * Partial ADLs (Assistance needed) Bathing Medication Management * List name and contact numbers for known caregivers / representatives who currently or will assist patient after discharge: Jordan Bustos - - [phone] * Can the patient safely return to the preadmission environment? Yes * Has this patient been hospitalized within the prior 30 days at any hospital? No Coverage Notice Reviewer: [id number] - Julian Lugo Notice Issued Date-Time: 12/30/2018 9:50 Notice Type: IM Discharge Notice Notice Delivered To: Patient Relationship to Patient: Rug Inspector Name: Delivery Method: HAND - Hand Delivered Claudia Days: Prior Verbal Notification: Recipient Understood Notice: Yes Recipient Signature: Yes Med Rec Note Co-signed by Attending: Coverage Notice Comment: Last DP export: 12/30/18 12:45 p Patient Name: JACQUELINE BUSTOS Page [id number] at 1445 All edits/amendments must be made on the electronic document DICTATION DATE: 12/30/181443 DEPARTMENT HEAD: RAHEEM 12/30/181443 RPT#: [id number] DC DATE: STATUS: ADM IN [facility] [address] [place] [address] END OF REPORT
--- NOTE | 2018-12-30 15:39 | NUR ---
PT LEFT UNIT VIA STRETCHER WITH ALL BELONGINGS, NAD NOTED.
== END 2018-12-30 15:40 | DRG 871 ==
LOC: D.ER 04:31 → D.EDHOLD 07:18 → D.MS 07:18 → D.M2 07:18 → D.ICU 07:18 → D.MS 12-16 15:25 → D.M2 12-20 16:46
PROVIDERS: Family Medicine; Family Medicine Adult Medicine; Internal Medicine; Internal Medicine Nephrology; Internal Medicine Pulmonary Disease; ADMIT Family Medicine
PROC: 0BH17EZ Insertion of Endotracheal Airway into Trachea, Via Natural or Artificial Opening (ICD-10-PCS; principal; 2018-12-12)
PROC: 5A1945Z Respiratory Ventilation, 24-96 Consecutive Hours (ICD-10-PCS; 2018-12-12)
PROC: 5A09457 Assistance with Respiratory Ventilation, 24-96 Consecutive Hours, Continuous Positive Airway Pressure (ICD-10-PCS; 2018-12-14)
DX: A41.1 Sepsis due to other specified staphylococcus (principal); R65.21 Severe sepsis with septic shock; J96.01 Acute respiratory failure with hypoxia; G93.41 Metabolic encephalopathy; J18.9 Pneumonia, unspecified organism; N17.0 Acute kidney failure with tubular necrosis; R53.2 Functional quadriplegia; N39.0 Urinary tract infection, site not specified; Z68.42 Body mass index [BMI] 45.0-49.9, adult; G93.40 Encephalopathy, unspecified; E66.01 Morbid (severe) obesity due to excess calories; E11.9 Type 2 diabetes mellitus without complications; K21.9 Gastro-esophageal reflux disease without esophagitis; B96.20 Unspecified Escherichia coli [E. coli] as the cause of diseases classified elsewhere; D64.9 Anemia, unspecified; D69.6 Thrombocytopenia, unspecified; E87.6 Hypokalemia; G93.89 Other specified disorders of brain

== ENCOUNTER 2019-12-25 20:47 | Emergency (ER) | payer MEDICARE, MEDICAID ==
[~2019-12-25] VITALS: Ht 175.3 cm; Wt 136.1 kg
[~2019-12-25 20:47] MED LIST changes: +ASPIRIN325 MG NG
[2019-12-25 20:50] VITALS: Ht 175.3 cm; Wt 136.1 kg
[2019-12-25 21:37] LABS: BASOPHILS 0.1 % (0-2); EOSINOPHILS 1.7 % (0-7); HEMATOCRIT 36.6 % (36.0-48.0); HEMOGLOBIN 11.7 g/dL (12-16); IMMATURE GRANULOCYTES 0.1 % (0-5); LYMPHOCYTES 20.9 % (15-50); MCH 31.2 pg (26.0-34.0); MCV 97.6 fL (80.0-100.0); MEAN PLATELET VOLUME 11.9 fL (7.4-10.4); NEUTROPHILS 70.2 % (40-80); PLATELET COUNT 225 10x3/uL (130-400); RBC 3.75 10x6/uL (4.00-5.40); RDW 13.5 % (11.5-14.5); WBC 8.4 10x3/uL (4.8-10.8)
[2019-12-25 21:45] LABS: ANION GAP 10.5 mmol/L (8-16); CALCIUM 8.6 mg/dL (8.5-10.1); CARBON DIOXIDE 29.3 mmol/L (21.0-32.0); CREATININE - SERUM 1.1 mg/dL (0.6-1.3); POTASSIUM - SERUM 3.8 mmol/L (3.5-5.1)
[2019-12-25 21:51] LABS: ALBUMIN 2.8 g/dL (3.4-5.0); BILIRUBIN - TOTAL 0.24 mg/dL (0.2-1.3); MAGNESIUM - SERUM 1.6 mg/dL (1.8-2.4); PROTEIN - SERUM 7.4 g/dL (6.4-8.2)
[2019-12-25 21:53] LABS: APPEARANCE TURBID (CLEAR); BILIRUBIN NEGATIVE (NEGATIVE); COLOR YELLOW (YELLOW); GLUCOSE 50 mg/dL (NEGATIVE); KETONE NEGATIVE (NEGATIVE); NITRITE POSITIVE (NEGATIVE); PROTEIN TRACE mg/dL (NEGATIVE); UROBILINOGEN NORMAL (NORMAL)
[2019-12-25 21:54] LABS: BACTERIA MANY /hpf (NEGATIVE); MUCUS >1+ /lpf (NONE SEEN)
[2019-12-25 21:55] LABS: AMORPHOUS SEDIMENT >1+ /lpf (NONE SEEN)
[2019-12-25] MEDS ORDERED: MACROBID100 MG PO (22:01)
[2019-12-25 22:38] VITALS: BP 158/89
== END 2019-12-25 22:38 | disposition home or self-care (01) ==
LOC: D.ER 20:47
PROVIDERS: Emergency Medicine
DX: R55 Syncope and collapse (principal); E83.42 Hypomagnesemia; R10.9 Unspecified abdominal pain; E11.40 Type 2 diabetes mellitus with diabetic neuropathy, unspecified; I10 Essential (primary) hypertension; J45.909 Unspecified asthma, uncomplicated; Z72.0 Tobacco use

== ENCOUNTER 2020-08-18 11:41 | Inpatient (IN) | payer MEDICARE, MEDICAID ==
[~2020-08-18] VITALS: Ht 175.3 cm; Wt 136.1 kg
[2020-08-18] VITALS (7 sets, daily range): BP systolic 81–120; BP diastolic 45–77
[2020-08-18] MEDS ORDERED: ASPIRIN81 MG PO (11:49)
[2020-08-18] MEDS ORDERED: VITAMIN D1000 UNI1 PO (11:50)
[2020-08-18] MEDS ORDERED: CLARITIN 10 MG10 MG PO (11:51)
[2020-08-18] MEDS ORDERED: COREG12.5 MG PO (11:53)
[2020-08-18] MEDS ORDERED: CRANBERRY (11:54)
[2020-08-18] MEDS ORDERED: LASIX40 MG PO (11:56)
[2020-08-18] MEDS ORDERED: NEURONTIN600 MG PO (11:57)
[2020-08-18] MEDS ORDERED: MIRALAX17 GM PO (11:58)
[2020-08-18] MEDS ORDERED: KEPPRA750 MG PO (11:59)
[2020-08-18] MEDS ORDERED: DITROPAN XL 1010 MG PO (12:01)
[2020-08-18] MEDS ORDERED: K-DUR20 MEQ PO (12:03)
[2020-08-18] MEDS ORDERED: PROTONIX40 MG PO (12:04)
[2020-08-18] MEDS ORDERED: TEMAZEPAM30 MG PO (12:04)
[2020-08-18] MEDS ORDERED: ZANAFLEX4 MG PO (12:05)
[2020-08-18] MEDS ORDERED: VITAMIN C500 M1 PO (12:06)
[2020-08-18] MEDS ORDERED: ZINC-220220 MG PO (12:07)
[2020-08-18 12:18] LABS: BASOPHILS 0.1 % (0-2); EOSINOPHILS 1.2 % (0-7); HEMATOCRIT 40.4 % (36.0-48.0); HEMOGLOBIN 13.4 g/dL (12-16); IMMATURE GRANULOCYTES 4.5 % (0-5); MCH 31.5 pg (26.0-34.0); MCHC 33.2 g/dL (31.0-37.0); MCV 95.1 fL (80.0-100.0); MEAN PLATELET VOLUME 13.8 fL (7.4-10.4); MONOCYTES 1.7 % (2-11); NEUTROPHILS 90.5 % (40-80); RBC 4.25 10x6/uL (4.00-5.40); WBC 13.4 10x3/uL (4.8-10.8)
[2020-08-18 12:30] LABS: PLATELET COUNT 111 10x3/uL (130-400)
[2020-08-18 12:45] LABS: ALBUMIN 2.3 g/dL (3.4-5.0); ALKALINE PHOSPHATASE 403 U/L (30-120); ALT (SGPT) 53 U/L (10-68); BILIRUBIN - TOTAL 1.92 mg/dL (0.2-1.3); CALC OSMOLALITY 287 mosm/kg (275-300); CALCIUM 8.5 mg/dL (8.5-10.1); CARBON DIOXIDE 23.3 mmol/L (21.0-32.0); CHLORIDE - SERUM 104 mmol/L (98-107); CKMB 0.9 U/L (0.0-3.6); CREATINE KINASE 77 UL (21-215); CREATININE - SERUM 1.8 mg/dL (0.6-1.3); POTASSIUM - SERUM 4.2 mmol/L (3.5-5.1); PRO BNP 7777 pg/mL (0-125); PROTEIN - SERUM 6.8 g/dL (6.4-8.2); SODIUM 135 mmol/L (136-145); TROPONIN-I 0.037 ng/mL (0.000-0.060); UREA NITROGEN 12 mg/dL (7-18); eGFR NON AFRICAN AMERICAN 32 mL/min (90-120)
[2020-08-18 12:55] LABS: GLUCOSE 415 mg/dL (74-106)
[2020-08-18 13:07] LABS: APTT 33.7 SECONDS (22.8-39.4); INR 1.34 (0.85-1.17); PROTIME 16.5 SECONDS (11.6-15.0)
[2020-08-18 15:27] LABS: BACTERIA MANY HPF (NONE SEEN); BILIRUBIN NEGATIVE (NEGATIVE); EPITHELIAL CELLS 0-5 /hpf (0-5); KETONE NEGATIVE (NEGATIVE); NITRITE NEGATIVE (NEGATIVE); UROBILINOGEN NORMAL mg/dL (< 2); WHITE CELLS - URINE >50 HPF (0-4)
--- NOTE | 2020-08-18 17:43 | NUR ---
PT FAMILY STEFANIE BARNES - DAUGHTER- [phone] ASHLIE ALMODOVAR -BROTHER- [phone]. FAMILY REQUESTS FREQUENT UPDATES ON PT STATUS.
[2020-08-19 04:00] VITALS: BP 99/57
[2020-08-19 07:12] LABS: APTT 36.3 SECONDS (22.8-39.4)
[2020-08-19 07:14] LABS: INR 1.46 (0.85-1.17); PROTIME 17.6 SECONDS (11.6-15.0)
[2020-08-19 07:47] VITALS: BP 111/73
[2020-08-19 08:07] LABS: ALBUMIN 2.4 g/dL (3.4-5.0); ANION GAP 20.2 mmol/L (8-16); CALCIUM 8.7 mg/dL (8.5-10.1); CREATININE - SERUM 1.4 mg/dL (0.6-1.3); POTASSIUM - SERUM 4.2 mmol/L (3.5-5.1); PROTEIN - SERUM 7.2 g/dL (6.4-8.2)
[2020-08-19 08:30] LABS: BASOPHILS 0.1 % (0-2); EOSINOPHILS 0.5 % (0-7); HEMATOCRIT 38.6 % (36.0-48.0); HEMOGLOBIN 13.1 g/dL (12-16); IMMATURE GRANULOCYTES 1.6 % (0-5); LYMPHOCYTES 5.1 % (15-50); MCH 31.7 pg (26.0-34.0); MCHC 33.9 g/dL (31.0-37.0); MCV 93.5 fL (80.0-100.0); MONOCYTES 4.9 % (2-11); NEUTROPHILS 87.8 % (40-80); PLATELET COUNT 106 10x3/uL (130-400); RBC 4.13 10x6/uL (4.00-5.40); RDW 13.1 % (11.5-14.5); WBC 16.7 10x3/uL (4.8-10.8)
[2020-08-19 08:43] LABS: CHOL - HDL RATIO 6.9 ratio (2.3-4.1); LDL-HDL RATIO 2.6 ratio (1.5-3.5)
[2020-08-19 12:00] VITALS: BP 83/50; BP 90/58
[2020-08-19 14:05] VITALS: Ht 175.3 cm; Wt 136.1 kg
--- NOTE | 2020-08-19 15:02 | NUR ---
Notifed Dr. Talavera of Covid test and BC positive no new orders given will continue to monitor pt.
[2020-08-19 16:08] VITALS: BP 93/42
--- NOTE | 2020-08-19 19:30 | NUR ---
PT IN BED, EYES CLOSED, RESP EVEN AND UNLABORED, NO DISTRESS NOTED, CL IN REACH, SR UP X 2.
[2020-08-19 20:00] VITALS: BP 79/49
[2020-08-19 23:26] VITALS: BP 135/79
[2020-08-20 04:00] VITALS: BP 84/47
[2020-08-20 06:03] LABS: BASOPHILS 0.1 % (0-2); EOSINOPHILS 0.8 % (0-7); HEMATOCRIT 34.7 % (36.0-48.0); HEMOGLOBIN 11.4 g/dL (12-16); IMMATURE GRANULOCYTES 1.6 % (0-5); LYMPHOCYTES 10.6 % (15-50); MCH 30.9 pg (26.0-34.0); MCHC 32.9 g/dL (31.0-37.0); MEAN PLATELET VOLUME 13.7 fL (7.4-10.4); MONOCYTES 5.3 % (2-11); NEUTROPHILS 81.6 % (40-80); PLATELET COUNT 115 10x3/uL (130-400); RBC 3.69 10x6/uL (4.00-5.40); RDW 13.4 % (11.5-14.5); WBC 13.7 10x3/uL (4.8-10.8)
[2020-08-20 06:18] LABS: ANION GAP 12.4 mmol/L (8-16); BILIRUBIN - TOTAL 0.47 mg/dL (0.2-1.3); CALCIUM 8.7 mg/dL (8.5-10.1); CARBON DIOXIDE 25.3 mmol/L (21.0-32.0); CREATININE - SERUM 1.2 mg/dL (0.6-1.3); POTASSIUM - SERUM 3.7 mmol/L (3.5-5.1); PROTEIN - SERUM 6.4 g/dL (6.4-8.2)
[2020-08-20 10:32] VITALS: BP 104/58
[2020-08-20 22:00] VITALS: BP 111/50
[2020-08-21 05:00] VITALS: BP 89/63; BP 99/63
[2020-08-21 06:31] LABS: BASOPHILS 0.1 % (0-2); EOSINOPHILS 0.7 % (0-7); HEMATOCRIT 37.7 % (36.0-48.0); HEMOGLOBIN 12.4 g/dL (12-16); IMMATURE GRANULOCYTES 0.3 % (0-5); LYMPHOCYTES 17.7 % (15-50); MCH 31.2 pg (26.0-34.0); MCHC 32.9 g/dL (31.0-37.0); MEAN PLATELET VOLUME 13.3 fL (7.4-10.4); MONOCYTES 4.2 % (2-11); PLATELET COUNT 132 10x3/uL (130-400); RBC 3.97 10x6/uL (4.00-5.40); RDW 13.5 % (11.5-14.5); WBC 11.6 10x3/uL (4.8-10.8)
[2020-08-21 06:44] LABS: ANION GAP 13.4 mmol/L (8-16); CALCIUM 8.4 mg/dL (8.5-10.1); CARBON DIOXIDE 25.5 mmol/L (21.0-32.0); CREATININE - SERUM 1.1 mg/dL (0.6-1.3); POTASSIUM - SERUM 3.9 mmol/L (3.5-5.1)
--- NOTE | 2020-08-21 07:24 | NUR ---
RESTING WITH EYES CLOSED, MONITOR CLOSELY FOR NEEDS.
[2020-08-21 08:38] VITALS: BP 118/79
[2020-08-21 12:23] VITALS: BP 147/92
[2020-08-21 16:30] VITALS: BP 126/89
--- NOTE | 2020-08-21 19:10 | NUR ---
REPORT RECEIVED, PT CARE ASSUMED. WROTE NAME ON BOARD. PT LYING IN BED, WATCHING TV, AAOX4. REQUESTED APPLE JUICE, PROVIDED. DENIES ANY OTHER NEEDS AT THIS TIME. BED IN LOWEST, SRX3, CALL LIGHT AND PHONE WITHIN REACH. WILL CTM.
[2020-08-21 20:37] VITALS: BP 126/88
[2020-08-22 00:27] VITALS: BP 141/82
[2020-08-22 04:23] VITALS: BP 134/72
[2020-08-22 07:23] LABS: BASOPHILS 0.1 % (0-2); EOSINOPHILS 0.4 % (0-7); HEMOGLOBIN 11.9 g/dL (12-16); IMMATURE GRANULOCYTES 0.9 % (0-5); LYMPHOCYTES 19.5 % (15-50); MCH 31.2 pg (26.0-34.0); MCHC 32.2 g/dL (31.0-37.0); MCV 96.9 fL (80.0-100.0); MEAN PLATELET VOLUME 13.3 fL (7.4-10.4); MONOCYTES 4.2 % (2-11); NEUTROPHILS 74.9 % (40-80); PLATELET COUNT 150 10x3/uL (130-400); RBC 3.82 10x6/uL (4.00-5.40); RDW 13.5 % (11.5-14.5); WBC 11.6 10x3/uL (4.8-10.8)
[2020-08-22 07:54] LABS: ANION GAP 14.5 mmol/L (8-16); CALCIUM 8.7 mg/dL (8.5-10.1); CARBON DIOXIDE 25.5 mmol/L (21.0-32.0); CREATININE - SERUM 0.9 mg/dL (0.6-1.3)
[2020-08-22 08:46] VITALS: BP 129/78
--- NOTE | 2020-08-22 11:30 | NUR ---
ADJUSTED PT IN BED. PT STATES SHE HAS NO FURTHER NEEDS AT THIS TIME. ON ROOM AIR. RIGHT WRIST IV FLUSHED WITH 10CC OF NS. BED LOW. CALL LIGHT IN REACH.
[2020-08-22 16:36] VITALS: BP 133/78
[2020-08-22 20:00] VITALS: BP 136/74
[2020-08-23] VITALS: BP 142/76
[2020-08-23 06:28] LABS: BASOPHILS 0.1 % (0-2); EOSINOPHILS 0.6 % (0-7); HEMATOCRIT 41.2 % (36.0-48.0); HEMOGLOBIN 13.4 g/dL (12-16); IMMATURE GRANULOCYTES 1.4 % (0-5); LYMPHOCYTES 22.8 % (15-50); MCH 31.2 pg (26.0-34.0); MCHC 32.5 g/dL (31.0-37.0); MCV 95.8 fL (80.0-100.0); MEAN PLATELET VOLUME 11.9 fL (7.4-10.4); MONOCYTES 6.4 % (2-11); NEUTROPHILS 68.7 % (40-80); PLATELET COUNT 155 10x3/uL (130-400); RDW 13.4 % (11.5-14.5)
[2020-08-23 06:29] LABS: WBC 8.6 10x3/uL (4.8-10.8)
[2020-08-23 07:00] LABS: ANION GAP 12.5 mmol/L (8-16); CALCIUM 8.7 mg/dL (8.5-10.1); CARBON DIOXIDE 27.4 mmol/L (21.0-32.0); CREATININE - SERUM 0.9 mg/dL (0.6-1.3); POTASSIUM - SERUM 3.9 mmol/L (3.5-5.1)
[2020-08-23 08:40] VITALS: BP 145/77
[2020-08-23] MEDS ORDERED: ROCEPHIN 1 GM/D51 G1 IM (11:25)
[2020-08-23] MEDS ORDERED: FLORAJEN3 CAPS460 MG PO (11:26)
[2020-08-23] MEDS ORDERED: LANTUS INS100 UNITS/ SC (11:27)
[2020-08-23 11:58] VITALS: BP 132/84
--- NOTE | 2020-08-23 13:09 | MORECARE ---
CASE MANAGEMENT DISCHARGE SUMMARY PATIENT: JACQUELINE ALMODOVAR UNIT: [id number] ADM DATE: 08/18/20 AGE: 49 : 70 SEX: F ROOM/BED: D.2579 AUTHOR: AMINA POLK PHYSICIAN: REFERRING PHYSICIAN: SAIRA INFANTE MD DATE OF SERVICE: 08/23/20 Discharge Plan Patient Name: JACQUELINE ALMODOVAR Facility: [facility]:[place] : 1970 Planned Disposition: [facility] Facility Anticipated Discharge Date: Discharge Date: Expected LOS: 0 Initial Reviewer: [id number] Initial Review Date: 08/18/2020 Generated: 08/23/20 2:08 pm Comments DCP- Discharge Planning Updated by [id number]: Romelia Modi on 08/23/20 11:[address] Patient Name: JACQUELINE ALMODOVAR Admission Status: ER Accout number: [id number] Admission Date: 08-18-2020 : 1970 Admission Diagnosis:SEPSIS, UNSPECIFIED ORGANISM Attending: SAIRA INFANTE Current LOS: 5 Anticipated DC Date: Planned Disposition: Primary Insurance: [facility] MEDICARE SOLUTIONS Discharge Planning Comments: CM met with patient to complete initial dc planning assessment VIA phone. Patient is a resident at [facility]. She will return to the facility at time of discharge in a [facility] bed. Patient agrees this is a safe discharge plan. Transportation provider at discharge will be EMS. CM spoke with Katharine at [phone] about DC. The patient will return in a covid isolation room. Nursing call report to [phone] CM will continue to follow and will assist as needed with dc plans/needs. DC IMM explained via phone call, delivered by nursing. Pt verbalized understanding of the form. Form placed in chart. Executive Director Contract Shop: Romelia Modi External Providers External Provider: [facility] Next Contact Date: Service Request Date: Service Type: Resolution: Reviewer: Comments: Coverage Notice Reviewer: [id number] - Romelia Modi Notice Issued Date-Time: 08/23/2020 11:50 Notice Type: IM Discharge Notice Notice Delivered To: Patient Relationship to Patient: Self Ladle Operator Name: Delivery Method: PHONE - Phone Claudia Days: Prior Verbal Notification: Yes Recipient Understood Notice: Yes Recipient Signature: Med Rec Note Co-signed by Attending: Coverage Notice Comment: DC IMM explained via phone call, delivered by nursing. Pt verbalized understanding of the form. Form placed in chart. Patient Name: JACQUELINE ALMODOVAR Page 75276 at 1309 All edits/amendments must be made on the electronic document DICTATION DATE: 08/23/201307 HEEL LAYER: RAHEEM 08/23/20 1308 RPT#: [id number] DC DATE: STATUS: ADM IN [facility] [address] [place] [address] END OF REPORT
--- NOTE | 2020-08-23 13:35 | NUR ---
Nutrition Follow-up: Pt in droplet isolation; covid-19+. Noted appetite starting to return. Nursing reports pt drinking well. Noted plans to d/c today. Diet: Diabetic Wt: 300# (08/19) Last BM: 08/23 Labs noted: Glu 202 Meds noted: Lantus, Humulin, Lasix, KDur, Ferrous Sulfate, Florajen, Miralax, Protonix, vit B12, vit D, vit C, zinc sulfate -Encourage PO intake and honor food preferences within diet restrictions. -RD following.
--- NOTE | 2020-08-24 08:20 | MORECARE ---
CASE MANAGEMENT DISCHARGE SUMMARY PATIENT: JACQUELINE ALMODOVAR UNIT: [id number] ADM DATE: 08/18/20 AGE: 49 : 70 SEX: F ROOM/BED: D.0220 AUTHOR: AMINA POLK PHYSICIAN: REFERRING PHYSICIAN: SAIRA INFANTE MD DATE OF SERVICE: 08/24/20 Discharge Plan Patient Name: JACQUELINE ALMODOVAR Facility: [facility]:[place] : 1970 Planned Disposition: Fdc Facility Anticipated Discharge Date: Discharge Date: 08/23/2020 Expected LOS: 0 Initial Reviewer: [email or web address] Initial Review Date: 08/18/2020 Generated: 08/24/20 9:19 am Comments DCP- Discharge Planning Updated by [email or web address]: Romelia Modi on 08/23/20 11:[address] Patient Name: JACQUELINE ALMODOVAR Admission Status: ER Accout number: [id number] Admission Date: 08-18-2020 : 1970 Admission Diagnosis:SEPSIS, UNSPECIFIED ORGANISM Attending: SAIRA INFANTE Current LOS: 5 Anticipated DC Date: Planned Disposition: Primary Insurance: [facility] [employer] Discharge Planning Comments: CM met with patient to complete initial dc planning assessment VIA phone. Patient is a resident at [facility]. She will return to the facility at time of discharge in a [facility] bed. Patient agrees this is a safe discharge plan. Transportation provider at discharge will be EMS. CM spoke with Katharine at [phone] about DC. The patient will return in a covid isolation room. Nursing call report to [phone] CM will continue to follow and will assist as needed with dc plans/needs. DC IMM explained via phone call, delivered by nursing. Pt verbalized understanding of the form. Form placed in chart. Cleaner Furniture: Romelia Modi Coverage Notice Reviewer: [email or web address] - Romelia Modi Notice Issued Date-Time: 08/23/2020 11:50 Notice Type: IM Discharge Notice Notice Delivered To: Patient Relationship to Patient: Self Material Cutter Name: Delivery Method: PHONE - Phone Claudia Days: Prior Verbal Notification: Yes Recipient Understood Notice: Yes Recipient Signature: Med Rec Note Co-signed by Attending: Coverage Notice Comment: DC IMM explained via phone call, delivered by nursing. Pt verbalized understanding of the form. Form placed in chart. Last DP export: 08/23/20 12:09 Patient Name: JACQUELINE ALMODOVAR Page [id number] at 0820 All edits/amendments must be made on the electronic document DICTATION DATE: 08/24/20818 TEMPORARY STAFF ACCOUNTANT: RAHEEM 08/24/20818 RPT#: [id number] DC DATE:08/23/20 STATUS: DIS IN [facility] [address] [place] [address] END OF REPORT
== END 2020-08-23 16:29 | DRG 871 ==
LOC: D.ER 11:41 → D.M2 15:44
PROVIDERS: Family Medicine; ADMIT Family Medicine; ATTEND Family Medicine
DX: A41.50 Gram-negative sepsis, unspecified (principal); I50.23 Acute on chronic systolic (congestive) heart failure; U07.1 COVID-19; N39.0 Urinary tract infection, site not specified; Z68.41 Body mass index [BMI] 40.0-44.9, adult; E66.01 Morbid (severe) obesity due to excess calories; K21.9 Gastro-esophageal reflux disease without esophagitis; D50.8 Other iron deficiency anemias; F41.8 Other specified anxiety disorders; J30.9 Allergic rhinitis, unspecified; K59.03 Drug induced constipation; G89.29 Other chronic pain; I11.0 Hypertensive heart disease with heart failure; B96.1 Klebsiella pneumoniae [K. pneumoniae] as the cause of diseases classified elsewhere; B96.20 Unspecified Escherichia coli [E. coli] as the cause of diseases classified elsewhere; Z86.73 Personal history of transient ischemic attack (TIA), and cerebral infarction without residual deficits

== ENCOUNTER → 2021-03-03 18:04 | Outpatient (CLI) | payer MEDICARE ==
[2020-10-13 13:36] VITALS: BMI 44.7
[~2021-03-03 18:04] MED LIST changes: +AMITIZA24 MCG PO; +CIPRODEX OTIC7.5 ML LEFT EAR; +COREG12.5 MG PO; +CRANBERRY; +DITROPAN XL 1010 MG PO; +HUMALOG 30100 UNITS/ SC; +KEPPRA750 MG PO; +LANTUS INS100 UNITS/ SC; +MIRALAX17 GM PO; +PERCOCET 10-321 EAC1 PO; +PROTONIX40 MG PO; +ROCEPHIN 1 GM/D51 G1 IM; +TEMAZEPAM30 MG PO; +TRAZODONE HCL50 MG PO; +VITAMIN C500 M1 PO; +VITAMIN D1000 UNI1 PO; +ZINC-220220 MG PO
[2021-03-03 18:59] LABS: BASOPHILS 0.1 % (0-2); EOSINOPHILS 1.6 % (0-7); HEMOGLOBIN 11.8 g/dL (12-16); LYMPHOCYTE ABS# 1.99 10x3/uL (1.18-3.74); LYMPHOCYTES 29.4 % (15-50); MCH 30.9 pg (26.0-34.0); MCHC 31.1 g/dL (31.0-37.0); MCV 99.5 fL (80.0-100.0); MEAN PLATELET VOLUME 13.1 fL (7.4-10.4); MONOCYTES 4.9 % (2-11); NEUTROPHIL ABS# 4.34 10x3/uL (1.56-6.13); RBC 3.82 10x6/uL (4.00-5.40); RDW 13.5 % (11.5-14.5); WBC 6.8 10x3/uL (4.8-10.8)
[2021-03-03 19:02] LABS: PLATELET COUNT 186 10x3/uL (130-400)
[2021-03-03 19:19] LABS: ALBUMIN 3.1 g/dL (3.4-5.0); ANION GAP 12.3 mmol/L (8-16); BILIRUBIN - TOTAL 0.27 mg/dL (0.2-1.3); CALCIUM 8.4 mg/dL (8.5-10.1); CARBON DIOXIDE 30.2 mmol/L (21.0-32.0); CREATININE - SERUM 1.1 mg/dL (0.6-1.3); POTASSIUM - SERUM 4.5 mmol/L (3.5-5.1); PROTEIN - SERUM 6.5 g/dL (6.4-8.2)
== END | disposition home or self-care (01) ==
LOC: D.LABREF 18:04
PROVIDERS: ATTEND Family Medicine
DX: E11.9 Type 2 diabetes mellitus without complications (principal); I60.9 Nontraumatic subarachnoid hemorrhage, unspecified; G93.40 Encephalopathy, unspecified; G40.409 Other generalized epilepsy and epileptic syndromes, not intractable, without status epilepticus; Z79.899 Other long term (current) drug therapy

== ENCOUNTER → 2021-04-29 11:54 | Outpatient (CLI) | payer MEDICARE ==
[2020-10-13 13:36] VITALS: BMI 44.7
[2021-04-29 13:41] LABS: AMORPHOUS SEDIMENT FEW LPF (<FEW); BACTERIA MOD HPF (<MOD); BILIRUBIN NEGATIVE (NEGATIVE); KETONE NEGATIVE mg/dL (< 1+); NITRITE POSITIVE (NEGATIVE); PH 6.5 (5.0-8.0); SQUAMOUS EPITHELIAL 3 HPF (0-4); UROBILINOGEN NORMAL mg/dL (< 2); WHITE CELLS - URINE 21 HPF (0-4)
== END | disposition home or self-care (01) ==
LOC: D.LABREF 11:54
PROVIDERS: ATTEND Family Medicine
DX: Z01.810 Encounter for preprocedural cardiovascular examination (principal)